=== PATIENT | male | born 1965 | race Caucasian/White ===

== ENCOUNTER 2019-01-10 09:00 | Outpatient (RCR) | payer OTHER, SELFPAY ==
--- NOTE | 2018-12-26 09:51 | PT.OIE ---
Current Diagnoses Lateral epicondylitis, right elbow (12/25/18) Provider Visit Care Team Role Provider Type Tripp Joseph MD Attending Provider Physician Primary Care Provider Specialty: Family Practice Address: [facility] [place], [address] Email: [email or web address] Physical Therapy Initial Evaluation PT-OP-A Visit Information Start: 12/25/18 09:56 Freq: Status: Active Protocol: Document 12/25/18 10:01 [facility] (Rec: 12/25/18 10:20 [facility] [email or web address]) Out-Patient Physical Therapy Visit Information Visit Information Visit Type Initial Evaluation Visit Note 53 year old male referred for medial elbow pain right greater than left. His symptoms began in the left medial side of his elbow in 2015. He underwent a C5-C6 disc replacement surgery which really helped the left elbow symptoms in October of 2016. Then in September of 2017 he began doing eat the frog exercises at the gym. This is when his symptoms began on the right side and they were 3 times worse on the right than the left. Visit Start Time 09:00 Visit Stop Time 09:45 Total Visit Minutes 45 Visit Number 1 Evaluation Information Evaluation Date 12/25/18 PT-OP-B Current Condition Start: 12/25/18 09:56 Freq: Status: Active Protocol: Document 12/25/18 10:01 [facility] (Rec: 12/25/18 10:20 [facility] [email or web address]) Current Condition History of Current Condition Onset Date September 2017 symptoms progressed Current Complaints Right greater than left medial elbow pain rated 3/10 History of Current Condition 53 year old male referred for medial elbow pain right greater than left. His symptoms began in the left medial side of his elbow in 2015. He underwent a C5-C6 disc replacement surgery which really helped the left elbow symptoms in October of 2016. Then in September of 2017 he began doing eat the frog exercises at the gym. This is when his symptoms began to flare on his right medial elbow and he notes they are 3 times worse than the left. He is wearing a medial epicondyle strap when he golfs and this really helps to decrease his pain. Treatment Goals Patient/Caregiver Goals to decrease medial elbow pain bilaterally and to be able to continue with a exercise program without pain. Junior would also like to continue golfing weaning off the brace and without pain Current Functional Impairments (Reported) Functional Limitations- ADL's pain with activities that require twisting at his elbow or rotation with flexion, pain with golfing if not wearing the strap, pain with exercise and weights PT-OP-F Manual Assessment Start: 12/25/18 09:56 Freq: Status: Active Protocol: Document 12/25/18 10:20 [facility] (Rec: 12/25/18 10:26 [facility] [email or web address]) Manual Assessments Soft Tissue Assessment Soft Tissue Mobility Assessment tightness in the medial forearm musculature right greater than left tightness in the flexor carpi ulnaris, flexor carpi radialis , pain at the common flexor tendon on the right and medial epicondyle, tightness of the pectoralis minor and scalenes right greater than left Joint Mobility Assessment Joint Mobility Assessment increased valgus on the right medial elbow as compared to the left, decreased cervical sidebend ROM to the left as compared to the right PT-OP-J Posture/Palpation/Skin Start: 12/25/18 09:56 Freq: Status: Active Protocol: Document 12/25/18 10:20 [facility] (Rec: 12/25/18 10:26 [facility] [email or web address]) Posture Evaluation Position Sitting Shoulder Posture (R) Rounded Palpation Assessment Location Two Palpation Location flexor carpi ulnaris, common flexor tendon Palpation Findings Soft Tissue Tightness Muscle Guarding Tenderness One Palpation Location right medial epicondyle Palpation Findings Tenderness Trigger Point Palpation Details pain to palpation on the bone PT-OP-L Special Tests Start: 12/25/18 09:56 Freq: Status: Active Protocol: Document 12/25/18 10:26 [facility] (Rec: 12/25/18 10:28 [facility] [email or web address]) Special Tests Cervical Spine Special Tests Other- 1 Test Results ULTT 1,2,3 Positive for ulnar and medial nerve rightness right side Comments left side there is a tightness only Elbow Special Tests Medial Epicondylitis Comments positive medial epicondylitis testing Valgus- 25 Degrees Comments pain with increased valgus testing PT-OP-M Strength Start: 12/25/18 09:56 Freq: Status: Active Protocol: Document 12/25/18 10:26 [facility] (Rec: 12/25/18 10:28 [facility] [email or web address]) Elbow/Forearm Strength Elbow and Forearm Manual Muscle Testing Left Flexion (C6) 5 Normal Extension (C7) 5 Normal Pronation 5 Normal Supination 5 Normal Right Flexion (C6) 5 Normal Extension (C7) 5 Normal Pronation 5 Normal Supination 4 Good Comments some pain with resisted supination on the right Wrist Strength Wrist Manual Muscle Testing Left Flexion (C7) 5 Normal Extension (C6) 5 Normal Ulnar Deviation 5 Normal Radial Deviation 5 Normal Right Flexion (C7) 4 Good Extension (C6) 5 Normal Ulnar Deviation 5 Normal Radial Deviation 5 Normal PT-OP-Q Treatments Start: 12/25/18 09:56 Freq: Status: Active Protocol: Document 12/25/18 10:29 [facility] (Rec: 12/25/18 10:34 [facility] [email or web address]) Therapeutic Exercises Supine Exercises 1 Supine Exercise Name foam roll stretch with nerve flossing and chest opening Side bilateral Reps/Minutes 1-2 minutes Other Exercises 2 Other Exercise Name ulnar nerve flossing Reps/Minutes x 10 reps 3 Other Exercise Name seated forearm extension stretch Side bilateral 1 Other Exercise Name seated cervical sidebending stretch Side bilateral Reps/Minutes 2-3 reps holding 30 seconds Self-Care/Home Management Treatment Education Patient Education Joint Protection Posture Other Education avoiding elbow hyperextension during the day and with rowing as the right medial elbow is in valgus PT-OP-T Assessment and Plan Start: 12/25/18 09:56 Freq: Status: Active Protocol: Document 12/25/18 09:45 [facility] (Rec: 12/26/18 09:51 [facility] [email or web address]) Physical Therapy Assessment Rehab Potential Rehabilitation Potential Excellent Evaluation Complexity Number of Personal Factors/Comorbidities 0 Number of Body Systems Impaired 1-2 Clinical Presentation at Evaluation Stable Impairments Impairments Activity Tolerance Pain Posture ROM Soft Tissue Mobility Strength Goals Three Impairment + ULTT 3 for ulnar nerve sensitivity on the right Group Home Goal (LTG) Improved mobility of the lunar nerve without symptoms in the elbow during ULTT 3 LTG Duration 8 weeks Two Impairment Tightness of the common flexor tendon, anterior chest, and neck Short Term Goal (STG) Improve mobility of the flexor ulnaris, anterior pectoralis, and scalenes to decrease tension on the medial epicondyle STG Duration 4 weeks One Impairment medial elbow pain restricting activites rated 3/10 Short Term Goal (STG) Den reports decreased c/o tenderness to palpation over the medial epicondyle on the right STG Duration 3-4 weeks [employer] Goal (LTG) With treatment Lukas is able to resume his exercise activities and golfing without complaints of medial elbow pain LTG Duration 8 weeks Assessment Summary Assessment Lukas presents today with bilateral medial epicondylitis right greater than left. His symptoms became flared in September 2017 after he began doing a work out called [employer] the [employer]rog at [employer]. Although he had symptoms earlier in his left elbow in 2015 these had decreased following his neck surgery in 2017. At this point his right side is much more involved than his left. He is wearing the epicondyitis strap on his right forearm during golf and notes this does really help. He rates his pain as 3/10 but it is limiting his activity level with exercise and ADL that require twisting and gripping. He has pain to palpation over the right Medial epicondyle and is tight and restricted in both the common flexor tendon and flexor carpi ulnaris. He is tighter in the pectoralis and scalene musculature on the right as compared to the left and has a +ULTT for ulnar nerve tightness on the right. He is also presenting with a increased valgus angle of the right elbow. We discussed avoiding hyperextension of the elbow which Lukas feels he may be doing with his rowing exercise. He responded well today with stretches for the forearm, anterior chest, and neck. He was also shown a ice massage for daily reduction of inflammation. Treatment will focus on flexibility exercises for the flexor musculature, posture modifications and joint protection, anterior chest and cervical stretches, manual treatments, and modalities. Physical Therapy Plan Frequency and Duration Frequency of Treatment 2x/Week Duration of Treatment 8 weeks Plan of Care Start Date 12/25/18 Plan of Care End Date 02/19/19 Therapeutic Interventions Therapeutic Interventions Home Exercise Program Manual Therapy Patient/Caregiver Education Self-Care/Home Management Soft Tissue Mobilization Therapeutic Exercises
--- NOTE | 2018-12-26 09:52 | PT.OPPOC ---
Current Diagnoses Lateral epicondylitis, right elbow (12/25/18) Provider Visit Care Team Role Provider Type Tripp Joseph MD Attending Provider Physician Primary Care Provider Specialty: Family Practice Address: [place], [address] Email: [email or web address] Plan Of Care PT-OP-T Assessment and Plan Start: 12/25/18 09:56 Freq: Status: Active Protocol: Document 12/25/18 09:45 [facility] (Rec: 12/26/18 09:51 [facility] [email or web address]) Physical Therapy Assessment Rehab Potential Rehabilitation Potential Excellent Evaluation Complexity Number of Personal Factors/Comorbidities 0 Number of Body Systems Impaired 1-2 Clinical Presentation at Evaluation Stable Impairments Impairments Activity Tolerance Pain Posture ROM Soft Tissue Mobility Strength Goals Three Impairment + ULTT 3 for ulnar nerve sensitivity on the right [place] Goal (LTG) Improved mobility of the lunar nerve without symptoms in the elbow during ULTT 3 LTG Duration 8 weeks Two Impairment Tightness of the common flexor tendon, anterior chest, and neck Short Term Goal (STG) Improve mobility of the flexor ulnaris, anterior pectoralis, and scalenes to decrease tension on the medial epicondyle STG Duration 4 weeks One Impairment medial elbow pain restricting activites rated 3/10 Short Term Goal (STG) Den reports decreased c/o tenderness to palpation over the medial epicondyle on the right STG Duration 3-4 weeks [place] Goal (LTG) With treatment Lukas is able to resume his exercise activities and golfing without complaints of medial elbow pain LTG Duration 8 weeks Assessment Summary Assessment Lukas presents today with bilateral medial epicondylitis right greater than left. His symptoms became flared in September 2017 after he began doing a work out called Eat the Frog at [employer]. Although he had symptoms earlier in his left elbow in 2016 these had decreased following his neck surgery in 2017. At this point his right side is much more involved than his left. He is wearing the epicondyitis strap on his right forearm during golf and notes this does really help. He rates his pain as 3/10 but it is limiting his activity level with exercise and ADL that require twisting and gripping. He has pain to palpation over the right Medial epicondyle and is tight and restricted in both the common flexor tendon and flesor carpi ulnaris. He is tighter in the pectoralis and scalene musculature on the right as compared to the left and has a +ULTT for ulnar nerve tightness on the right. He is also presenting with a increased valgus angle of the right elbow. We discussed avoiding hyperextension of the elbow which Lukas feels he may be doing with his rowing exercise. He responded well today with stretches for the forearm, anterior chest, and neck. He was also shown a ice massage for daily reduction of inflammation. Treatment will focus on flexibility exercises for the flexor musculature, posture modifications and joint protection, anterior chest and cervical stretches, manual treatments, and modalities. Physical Therapy Plan Frequency and Duration Frequency of Treatment 2x/Week Duration of Treatment 8 weeks Plan of Care Start Date 12/25/18 Plan of Care End Date 02/19/19 Therapeutic Interventions Therapeutic Interventions Home Exercise Program Manual Therapy Patient/Caregiver Education Self-Care/Home Management Soft Tissue Mobilization Therapeutic Exercises Plan of Care Dates Plan of Care Start Date 12/25/18 Plan of Care End Date 02/19/19 Please Sign and Return: I have reviewed this Plan of Care and certify that the skilled therapy services above are required to meet the patient?s needs. Physician Signature Date Printed Name and Credentials Clinical Instructor Signature Printed Name and Credentials
--- NOTE | 2018-12-27 12:47 | PT.OTN ---
Current Diagnoses Lateral epicondylitis, right elbow (12/27/18) Physical Therapy Treatment Note PT-OP-A Visit Information Start: 12/25/18 09:56 Freq: Status: Active Protocol: Document 12/27/18 12:08 [facility] (Rec: 12/27/18 12:47 [facility] [email or web address]) Out-Patient Physical Therapy Visit Information Visit Information Visit Type Treatment Note Visit Start Time 09:00 Visit Stop Time 09:45 Total Visit Minutes 45 Visit Number 2 PT-OP-B Current Condition Start: 12/25/18 09:56 Freq: Status: Active Protocol: Document 12/25/18 10:01 [facility] (Rec: 12/25/18 10:20 [facility] [email or web address]) Current Condition History of Current Condition Onset Date September 2017 symptoms progressed Current Complaints Right greater than left medial elbow pain rated 3/10 History of Current Condition 53 year old male referred for medial elbow pain right greater than left. His symptoms began in the left medial side of his elbow in 2015. He underwent a C5-C6 disc replacement surgery which really helped the left elbow symptoms in October of 2016. Then in September of 2017 he began doing eat the frog exercises at the gym. This is when his symptoms began to flare on his right medial elbow and he notes they are 3 times worse than the left. He is wearing a medial epicondyle strap when he golfs and this really helps to decrease his pain. Treatment Goals Patient/Caregiver Goals to decrease medial elbow pain bilaterally and to be able to continue with a exercise program without pain. Junior would also like to continue golfing weaning off the brace and without pain Current Functional Impairments (Reported) Functional Limitations- ADL's pain with activities that require twisting at his elbow or rotation with flexion, pain with golfing if not wearing the strap, pain with exercise and weights PT-OP-C Subjective Start: 12/25/18 09:56 Freq: Status: Active Protocol: Document 12/27/18 12:08 [facility] (Rec: 12/27/18 12:47 [facility] [email or web address]) OP-PT Subjective Patient Comments Patient Comments Lukas reports he was able to row wearing his brace without any pain. He has been working on his stretches PT-OP-F Manual Assessment Start: 12/25/18 09:56 Freq: Status: Active Protocol: Document 12/25/18 10:20 [facility] (Rec: 12/25/18 10:26 [facility] [email or web address]) Manual Assessments Soft Tissue Assessment Soft Tissue Mobility Assessment tightness in the medial forarm musculature right greater than left tightness in the flexor carpi ulnaris, flexor carpi radialis , pain at the common flexor tendon on the right and medial epicondyle, tightness of the pectoralis minor and scalenes right greater than left Joint Mobility Assessment Joint Mobility Assessment increased valgus on the right medial elbow as compared to the left, decreased cervical sidebend ROM to the left as compared to the right PT-OP-J Posture/Palpation/Skin Start: 12/25/18 09:56 Freq: Status: Active Protocol: Document 12/25/18 10:20 [facility] (Rec: 12/25/18 10:26 [facility] [email or web address]) Posture Evaluation Position Sitting Shoulder Posture (R) Rounded Palpation Assessment Location Two Palpation Location flexor carpi ulnaris, common flexor tendon Palpation Findings Soft Tissue Tightness Muscle Guarding Tenderness One Palpation Location right medial epicondyle Palpation Findings Tenderness Trigger Point Palpation Details pain to palpation on the bone PT-OP-L Special Tests Start: 12/25/18 09:56 Freq: Status: Active Protocol: Document 12/25/18 10:26 [facility] (Rec: 12/25/18 10:28 [facility] [email or web address]) Special Tests Cervical Spine Special Tests Other- 1 Test Results ULTT 1,2,3 Positive for ulnar and medial nerve rightness right side Comments left side there is a tightness only Elbow Special Tests Medial Epicondylitis Comments positive medial epicondylitis testing Valgus- 25 Degrees Comments pain with increased valgus testing PT-OP-M Strength Start: 12/25/18 09:56 Freq: Status: Active Protocol: Document 12/25/18 10:26 [facility] (Rec: 12/25/18 10:28 [facility] [email or web address]) Elbow/Forearm Strength Elbow and Forearm Manual Muscle Testing Left Flexion (C6) 5 Normal Extension (C7) 5 Normal Pronation 5 Normal Supination 5 Normal Right Flexion (C6) 5 Normal Extension (C7) 5 Normal Pronation 5 Normal Supination 4 Good Comments some pain with resisted supination on the right Wrist Strength Wrist Manual Muscle Testing Left Flexion (C7) 5 Normal Extension (C6) 5 Normal Ulnar Deviation 5 Normal Radial Deviation 5 Normal Right Flexion (C7) 4 Good Extension (C6) 5 Normal Ulnar Deviation 5 Normal Radial Deviation 5 Normal PT-OP-Q Treatments Start: 12/25/18 09:56 Freq: Status: Active Protocol: Document 12/27/18 12:08 [facility] (Rec: 12/27/18 12:47 [facility] [email or web address]) Manual Therapy Treatment Soft Tissue Mobilization 1 Body Location STM and MFR of the R forearm flexors Manual Techniques 3 Type manual stretch of the pec minor and forearm flexors 2 Type manual cervical sidebend stretch for the scalenes and upper trap 1 Type ULTT nerve glides for median and ulnar nerve PT-OP-R Modalities Start: 12/25/18 09:56 Freq: Status: Active Protocol: Document 12/27/18 12:08 [facility] (Rec: 12/27/18 12:47 [facility] [email or web address]) Hot Pack/Cold Pack Treatment Ice Massage Location right common flexor tendon medial epicondyle Ultrasound Therapy Treatment Right Medial Forearm Treatment Duration (minutes) 8 Patient Position Supine Coupling Medium Ultrasound Gel Applicator Size (cm2) 5 Frequency Setting (mHz) 1 Mode Setting Continuous Duty Cycle 100% Intensity Setting (w/cm2) 1.0 PT-OP-T Assessment and Plan Start: 12/25/18 09:56 Freq: Status: Active Protocol: Document 12/27/18 12:08 [facility] (Rec: 12/27/18 12:47 [facility] [email or web address]) Physical Therapy Assessment Assessment Summary Assessment Decreased tenderness over the medial epicondyle today with palpation. Good tolerance for exercises Physical Therapy Plan Frequency and Duration Frequency of Treatment 2x/Week Duration of Treatment 8 weeks Plan of Care Start Date 12/25/18 Plan of Care End Date 02/19/19 Next Visit Focus/Plan Next Note Type Treatment Note Next Visit Plan begin with foam roll stretch to warm up next visit
--- NOTE | 2019-01-07 14:40 | PT.OTN ---
Current Diagnoses Lateral epicondylitis, right elbow (01/07/19) Physical Therapy Treatment Note PT-OP-A Visit Information Start: 12/25/18 09:56 Freq: Status: Active Protocol: Document 01/01/19 11:15 [facility] (Rec: 01/07/19 14:40 [facility] [email or web address]) Out-Patient Physical Therapy Visit Information Visit Information Visit Type Treatment Note Visit Start Time 11:15 Visit Stop Time 12:30 Total Visit Minutes 45 Visit Number 3 PT-OP-B Current Condition Start: 12/25/18 09:56 Freq: Status: Active Protocol: Document 12/25/18 10:01 [facility] (Rec: 12/25/18 10:20 [facility] [email or web address]) Current Condition History of Current Condition Onset Date September 2017 symptoms progressed Current Complaints Right greater than left medial elbow pain rated 3/10 History of Current Condition 53 year old male referred for medial elbow pain right greater than left. His symptoms began in the left medial side of his elbow in 2015. He underwent a C5-C6 disc replacement surgery which really helped the left elbow symptoms in October of 2016. Then in September of 2017 he began doing eat the frog exercises at the gym. This is when his symptoms began to flare on his right medial elbow and he notes they are 3 times worse than the left. He is wearing a medial epicondyle strap when he golfs and this really helps to decrease his pain. Treatment Goals Patient/Caregiver Goals to decrease medial elbow pain bilaterally and to be able to continue with a exercise program without pain. Junior would also like to continue golfing weaning off the brace and without pain Current Functional Impairments (Reported) Functional Limitations- ADL's pain with activities that require twisting at his elbow or rotation with flexion, pain with golfing if not wearing the strap, pain with exercise and weights PT-OP-C Subjective Start: 12/25/18 09:56 Freq: Status: Active Protocol: Document 01/01/19 11:15 [facility] (Rec: 01/07/19 14:39 [facility] [email or web address]) OP-PT Subjective Patient Comments Patient Comments Doing better and has been working on his stretches at home PT-OP-F Manual Assessment Start: 12/25/18 09:56 Freq: Status: Active Protocol: Document 12/25/18 10:20 [facility] (Rec: 12/25/18 10:26 [facility] [email or web address]) Manual Assessments Soft Tissue Assessment Soft Tissue Mobility Assessment tightness in the medial forarm musculature right greater than left tightness in the flexor carpi ulnaris, flexor carpi radialis , pain at the common flexor tendon on the right and medial epicondyle, tightness of the pectoralis minor and scalenes right greater than left Joint Mobility Assessment Joint Mobility Assessment increased valgus on the right medial elbow as compared to the left, decreased cervical sidebend ROM to the left as compared to the right PT-OP-J Posture/Palpation/Skin Start: 12/25/18 09:56 Freq: Status: Active Protocol: Document 12/25/18 10:20 [facility] (Rec: 12/25/18 10:26 [facility] [email or web address]) Posture Evaluation Position Sitting Shoulder Posture (R) Rounded Palpation Assessment Location Two Palpation Location flexor carpi ulnaris, common flexor tendon Palpation Findings Soft Tissue Tightness Muscle Guarding Tenderness One Palpation Location right medial epicondyle Palpation Findings Tenderness Trigger Point Palpation Details pain to palpation on the bone PT-OP-L Special Tests Start: 12/25/18 09:56 Freq: Status: Active Protocol: Document 12/25/18 10:26 [facility] (Rec: 12/25/18 10:28 [facility] [email or web address]) Special Tests Cervical Spine Special Tests Other- 1 Test Results ULTT 1,2,3 Positive for ulnar and medial nerve rightness right side Comments left side there is a tightness only Elbow Special Tests Medial Epicondylitis Comments positive medial epicondylitis testing Valgus- 25 Degrees Comments pain with increased valgus testing PT-OP-M Strength Start: 12/25/18 09:56 Freq: Status: Active Protocol: Document 12/25/18 10:26 [facility] (Rec: 12/25/18 10:28 [facility] [email or web address]) Elbow/Forearm Strength Elbow and Forearm Manual Muscle Testing Left Flexion (C6) 5 Normal Extension (C7) 5 Normal Pronation 5 Normal Supination 5 Normal Right Flexion (C6) 5 Normal Extension (C7) 5 Normal Pronation 5 Normal Supination 4 Good Comments some pain with resisted supination on the right Wrist Strength Wrist Manual Muscle Testing Left Flexion (C7) 5 Normal Extension (C6) 5 Normal Ulnar Deviation 5 Normal Radial Deviation 5 Normal Right Flexion (C7) 4 Good Extension (C6) 5 Normal Ulnar Deviation 5 Normal Radial Deviation 5 Normal PT-OP-Q Treatments Start: 12/25/18 09:56 Freq: Status: Active Protocol: Document 01/01/19 11:15 [facility] (Rec: 01/07/19 14:39 [facility] [email or web address]) Manual Therapy Treatment Soft Tissue Mobilization 1 Body Location STM and MFR of the R forearm flexors Manual Techniques 3 Type manual stretch of the pec minor and forearm flexors 2 Type manual cervical sidebend stretch for the scalenes and upper trap 1 Type ULTT nerve glides for median and ulnar nerve PT-OP-R Modalities Start: 12/25/18 09:56 Freq: Status: Active Protocol: Document 01/01/19 11:15 [facility] (Rec: 01/07/19 14:40 [facility] [email or web address]) Hot Pack/Cold Pack Treatment Ice Massage Location right common flexor tendon medial epicondyle Ultrasound Therapy Treatment Right Medial Forearm Treatment Duration (minutes) 8 Patient Position Supine Coupling Medium Ultrasound Gel Applicator Size (cm2) 5 Frequency Setting (mHz) 1 Mode Setting Continuous Duty Cycle 100% Intensity Setting (w/cm2) 1.0 PT-OP-T Assessment and Plan Start: 12/25/18 09:56 Freq: Status: Active Protocol: Document 01/01/19 11:15 [facility] (Rec: 01/07/19 14:39 [facility] [email or web address]) Physical Therapy Assessment Assessment Summary Assessment Still tigght in the right greater than left side of his neck, decreasing tenderness over the medial epicondyle Physical Therapy Plan Frequency and Duration Frequency of Treatment 2x/Week Duration of Treatment 8 weeks Plan of Care Start Date 12/25/18 Plan of Care End Date 02/19/19 Therapeutic Interventions Therapeutic Interventions Home Exercise Program Manual Therapy Patient/Caregiver Education Self-Care/Home Management Soft Tissue Mobilization Therapeutic Exercises Next Visit Focus/Plan Next Note Type Treatment Note Next Visit Plan continue to work on improving flexibility of the forearm, anterior chest, and neck
--- NOTE | 2019-01-07 14:44 | PT.OTN ---
Current Diagnoses Lateral epicondylitis, right elbow (01/07/19) Physical Therapy Treatment Note PT-OP-A Visit Information Start: 12/25/18 09:56 Freq: Status: Active Protocol: Document 01/07/19 14:40 [facility] (Rec: 01/07/19 14:44 [facility] [email or web address]) Out-Patient Physical Therapy Visit Information Visit Information Visit Type Treatment Note Visit Start Time 09:00 Visit Stop Time 09:45 Total Visit Minutes 45 Visit Number 4 PT-OP-B Current Condition Start: 12/25/18 09:56 Freq: Status: Active Protocol: Document 12/25/18 10:01 [facility] (Rec: 12/25/18 10:20 [facility] [email or web address]) Current Condition History of Current Condition Onset Date September 2017 symptoms progressed Current Complaints Right greater than left medial elbow pain rated 3/10 History of Current Condition 53 year old male referred for medial elbow pain right greater than left. His symptoms began in the left medial side of his elbow in 2015. He underwent a C5-C6 disc replacement surgery which really helped the left elbow symptoms in October of 2016. Then in September of 2017 he began doing eat the frog exercises at the gym. This is when his symptoms began to flare on his right medial elbow and he notes they are 3 times worse than the left. He is wearing a medial epicondyle strap when he golfs and this really helps to decrease his pain. Treatment Goals Patient/Caregiver Goals to decrease medial elbow pain bilaterally and to be able to continue with a exercise program without pain. Junior would also like to continue golfing weaning off the brace and without pain Current Functional Impairments (Reported) Functional Limitations- ADL's pain with activities that require twisting at his elbow or rotation with flexion, pain with golfing if not wearing the strap, pain with exercise and weights PT-OP-C Subjective Start: 12/25/18 09:56 Freq: Status: Active Protocol: Document 01/07/19 14:40 [facility] (Rec: 01/07/19 14:44 [facility] [email or web address]) OP-PT Subjective Patient Comments Patient Comments Lukas reports that symptoms are better and there is decreased tenderness over the medial elbow now PT-OP-F Manual Assessment Start: 12/25/18 09:56 Freq: Status: Active Protocol: Document 12/25/18 10:20 [facility] (Rec: 12/25/18 10:26 [facility] [email or web address]) Manual Assessments Soft Tissue Assessment Soft Tissue Mobility Assessment tightness in the medial forarm musculature right greater than left tightness in the flexor carpi ulnaris, flexor carpi radialis , pain at the common flexor tendon on the right and medial epicondyle, tightness of the pectoralis minor and scalenes right greater than left Joint Mobility Assessment Joint Mobility Assessment increased valgus on the right medial elbow as compared to the left, decreased cervical sidebend ROM to the left as compared to the right PT-OP-J Posture/Palpation/Skin Start: 12/25/18 09:56 Freq: Status: Active Protocol: Document 12/25/18 10:20 [facility] (Rec: 12/25/18 10:26 [facility] [email or web address]) Posture Evaluation Position Sitting Shoulder Posture (R) Rounded Palpation Assessment Location Two Palpation Location flexor carpi ulnaris, common flexor tendon Palpation Findings Soft Tissue Tightness Muscle Guarding Tenderness One Palpation Location right medial epicondyle Palpation Findings Tenderness Trigger Point Palpation Details pain to palpation on the bone PT-OP-L Special Tests Start: 12/25/18 09:56 Freq: Status: Active Protocol: Document 12/25/18 10:26 [facility] (Rec: 12/25/18 10:28 [facility] [email or web address]) Special Tests Cervical Spine Special Tests Other- 1 Test Results ULTT 1,2,3 Positive for ulnar and medial nerve rightness right side Comments left side there is a tightness only Elbow Special Tests Medial Epicondylitis Comments positive medial epicondylitis testing Valgus- 25 Degrees Comments pain with increased valgus testing PT-OP-M Strength Start: 12/25/18 09:56 Freq: Status: Active Protocol: Document 12/25/18 10:26 [facility] (Rec: 12/25/18 10:28 [facility] [email or web address]) Elbow/Forearm Strength Elbow and Forearm Manual Muscle Testing Left Flexion (C6) 5 Normal Extension (C7) 5 Normal Pronation 5 Normal Supination 5 Normal Right Flexion (C6) 5 Normal Extension (C7) 5 Normal Pronation 5 Normal Supination 4 Good Comments some pain with resisted supination on the right Wrist Strength Wrist Manual Muscle Testing Left Flexion (C7) 5 Normal Extension (C6) 5 Normal Ulnar Deviation 5 Normal Radial Deviation 5 Normal Right Flexion (C7) 4 Good Extension (C6) 5 Normal Ulnar Deviation 5 Normal Radial Deviation 5 Normal PT-OP-Q Treatments Start: 12/25/18 09:56 Freq: Status: Active Protocol: Document 01/07/19 14:40 [facility] (Rec: 01/07/19 14:44 [facility] [email or web address]) Therapeutic Exercises Supine Exercises 1 Supine Exercise Name foam roll stretch with nerve flossing and chest opening Side bilateral Reps/Minutes 1-2 minutes Manual Therapy Treatment Soft Tissue Mobilization 1 Body Location STM and MFR of the R forearm flexors Manual Techniques 3 Type manual stretch of the pec minor and forearm flexors 2 Type manual cervical sidebend stretch for the scalenes and upper trap 1 Type ULTT nerve glides for median and ulnar nerve PT-OP-R Modalities Start: 12/25/18 09:56 Freq: Status: Active Protocol: Document 01/07/19 09:00 [facility] (Rec: 01/07/19 14:44 [facility] [email or web address]) Hot Pack/Cold Pack Treatment Ice Massage Location right common flexor tendon medial epicondyle Ultrasound Therapy Treatment Right Medial Forearm Treatment Duration (minutes) 8 Patient Position Supine Coupling Medium Ultrasound Gel Applicator Size (cm2) 5 Frequency Setting (mHz) 1 Mode Setting Continuous Duty Cycle 100% Intensity Setting (w/cm2) 1.0 PT-OP-T Assessment and Plan Start: 12/25/18 09:56 Freq: Status: Active Protocol: Document 01/07/19 14:40 [facility] (Rec: 01/07/19 14:44 [facility] [email or web address]) Physical Therapy Assessment Assessment Summary Assessment no tenderness to palpation over themedial epicondyle today, still tight in the right side of the neck as compared to the left. Physical Therapy Plan Frequency and Duration Frequency of Treatment 2x/Week Duration of Treatment 8 weeks Plan of Care Start Date 12/25/18 Plan of Care End Date 02/19/19 Next Visit Focus/Plan Next Note Type Treatment Note Next Visit Plan continue to work on improving flexibility of the forearm, anterior chest, and neck
--- NOTE | 2019-01-10 10:04 | PT.OTN ---
Current Diagnoses Lateral epicondylitis, right elbow (01/10/19) Physical Therapy Treatment Note PT-OP-A Visit Information Start: 12/25/18 09:56 Freq: Status: Active Protocol: Document 01/10/19 10:00 [facility] (Rec: 01/10/19 10:04 [facility] [email or web address]) Out-Patient Physical Therapy Visit Information Visit Information Visit Type Treatment Note Visit Start Time 09:00 Visit Stop Time 09:45 Total Visit Minutes 45 Visit Number 5 PT-OP-B Current Condition Start: 12/25/18 09:56 Freq: Status: Active Protocol: Document 12/25/18 10:01 [facility] (Rec: 12/25/18 10:20 [facility] [email or web address]) Current Condition History of Current Condition Onset Date September 2017 symptoms progressed Current Complaints Right greater than left medial elbow pain rated 3/10 History of Current Condition 53 year old male referred for medial elbow pain right greater than left. His symptoms began in the left medial side of his elbow in 2015. He underwent a C5-C6 disc replacement surgery which really helped the left elbow symptoms in October of 2016. Then in September of 2017 he began doing eat the frog exercises at the gym. This is when his symptoms began to flare on his right medial elbow and he notes they are 3 times worse than the left. He is wearing a medial epicondyle strap when he golfs and this really helps to decrease his pain. Treatment Goals Patient/Caregiver Goals to decrease medial elbow pain bilaterally and to be able to continue with a exercise program without pain. Junior would also like to continue golfing weaning off the brace and without pain Current Functional Impairments (Reported) Functional Limitations- ADL's pain with activities that require twisting at his elbow or rotation with flexion, pain with golfing if not wearing the strap, pain with exercise and weights PT-OP-C Subjective Start: 12/25/18 09:56 Freq: Status: Active Protocol: Document 01/10/19 10:00 [facility] (Rec: 01/10/19 10:04 [facility] [email or web address]) OP-PT Subjective Patient Comments Patient Comments Sore today at the medial elbow PT-OP-F Manual Assessment Start: 12/25/18 09:56 Freq: Status: Active Protocol: Document 12/25/18 10:20 [facility] (Rec: 12/25/18 10:26 [facility] [email or web address]) Manual Assessments Soft Tissue Assessment Soft Tissue Mobility Assessment tightness in the medial forarm musculature right greater than left tightness in the flexor carpi ulnaris, flexor carpi radialis , pain at the common flexor tendon on the right and medial epicondyle, tightness of the pectoralis minor and scalenes right greater than left Joint Mobility Assessment Joint Mobility Assessment increased valgus on the right medial elbow as compared to the left, decreased cervical sidebend ROM to the left as compared to the right PT-OP-J Posture/Palpation/Skin Start: 12/25/18 09:56 Freq: Status: Active Protocol: Document 12/25/18 10:20 [facility] (Rec: 12/25/18 10:26 [facility] [email or web address]) Posture Evaluation Position Sitting Shoulder Posture (R) Rounded Palpation Assessment Location Two Palpation Location flexor carpi ulnaris, common flexor tendon Palpation Findings Soft Tissue Tightness Muscle Guarding Tenderness One Palpation Location right medial epicondyle Palpation Findings Tenderness Trigger Point Palpation Details pain to palpation on the bone PT-OP-L Special Tests Start: 12/25/18 09:56 Freq: Status: Active Protocol: Document 12/25/18 10:26 [facility] (Rec: 12/25/18 10:28 [facility] [email or web address]) Special Tests Cervical Spine Special Tests Other- 1 Test Results ULTT 1,2,3 Positive for ulnar and medial nerve rightness right side Comments left side there is a tightness only Elbow Special Tests Medial Epicondylitis Comments positive medial epicondylitis testing Valgus- 25 Degrees Comments pain with increased valgus testing PT-OP-M Strength Start: 12/25/18 09:56 Freq: Status: Active Protocol: Document 12/25/18 10:26 [facility] (Rec: 12/25/18 10:28 [facility] [email or web address]) Elbow/Forearm Strength Elbow and Forearm Manual Muscle Testing Left Flexion (C6) 5 Normal Extension (C7) 5 Normal Pronation 5 Normal Supination 5 Normal Right Flexion (C6) 5 Normal Extension (C7) 5 Normal Pronation 5 Normal Supination 4 Good Comments some pain with resisted supination on the right Wrist Strength Wrist Manual Muscle Testing Left Flexion (C7) 5 Normal Extension (C6) 5 Normal Ulnar Deviation 5 Normal Radial Deviation 5 Normal Right Flexion (C7) 4 Good Extension (C6) 5 Normal Ulnar Deviation 5 Normal Radial Deviation 5 Normal PT-OP-Q Treatments Start: 12/25/18 09:56 Freq: Status: Active Protocol: Document 01/10/19 10:00 [facility] (Rec: 01/10/19 10:04 [facility] [email or web address]) Therapeutic Exercises Supine Exercises 1 Supine Exercise Name foam roll stretch with nerve flossing and chest opening Side bilateral Reps/Minutes 1-2 minutes Other Exercises 5 Other Exercise Name standing neck stretch 4 Other Exercise Name standing brachial plexus stretch with hand on the wall Comments bilateral starting with elbow bent and working towards straight elbow Manual Therapy Treatment Soft Tissue Mobilization 1 Body Location STM and MFR of the R forearm flexors Manual Techniques 3 Type manual stretch of the pec minor and forearm flexors 2 Type manual cervical sidebend stretch for the scalenes and upper trap 1 Type ULTT nerve glides for median and ulnar nerve PT-OP-R Modalities Start: 12/25/18 09:56 Freq: Status: Active Protocol: Document 01/10/19 10:04 [facility] (Rec: 01/10/19 10:04 [facility] [email or web address]) Hot Pack/Cold Pack Treatment Ice Massage Location right common flexor tendon medial epicondyle Ultrasound Therapy Treatment Right Medial Forearm Treatment Duration (minutes) 8 Patient Position Supine Coupling Medium Ultrasound Gel Applicator Size (cm2) 5 Frequency Setting (mHz) 1 Mode Setting Continuous Duty Cycle 100% Intensity Setting (w/cm2) 1.0 PT-OP-T Assessment and Plan Start: 12/25/18 09:56 Freq: Status: Active Protocol: Document 01/10/19 10:00 [facility] (Rec: 01/10/19 10:04 [facility] [email or web address]) Physical Therapy Assessment Assessment Summary Assessment tender today over the medial epicondyle and a little tighter with the nerve flossing exercises Physical Therapy Plan Frequency and Duration Frequency of Treatment 2x/Week Duration of Treatment 8 weeks Plan of Care Start Date 12/25/18 Plan of Care End Date 02/19/19 Therapeutic Interventions Therapeutic Interventions Home Exercise Program Manual Therapy Patient/Caregiver Education Self-Care/Home Management Soft Tissue Mobilization Therapeutic Exercises Next Visit Focus/Plan Next Note Type Treatment Note Next Visit Plan continue to work on improving flexibility of the forearm, anterior chest, and neck
--- NOTE | 2019-08-08 14:56 | PT.OPDS ---
Current Diagnoses Lateral epicondylitis, right elbow (01/10/19) Visit Care Team Role Provider Type Tripp Joseph MD Attending Provider Physician Primary Care Provider Specialty: [facility] Address: [address] [place] [address], [facility], [place], [place], [facility] Email: [email or web address] Visit Number Visit Number 5 Discharge Summary PT-OP-B Current Condition Start: 12/25/18 09:56 Freq: Status: Active Protocol: Document 12/25/18 10:01 [facility] (Rec: 12/25/18 10:20 [facility] [email or web address]) Current Condition History of Current Condition Onset Date September 2017 symptoms progressed Current Complaints Right greater than left medial elbow pain rated 3/10 History of Current Condition 53 year old male referred for medial elbow pain right greater than left. His symptoms began in the left medial side of his elbow in 2015. He underwent a C5-C6 disc replacement surgery which really helped the left elbow symptoms in October of 2016. Then in September of 2017 he began doing eat the frog exercises at the gym. This is when his symptoms began to flare on his right medial elbow and he notes they are 3 times worse than the left. He is wearing a medial epicondyle strap when he golfs and this really helps to decrease his pain. Treatment Goals Patient/Caregiver Goals to decrease medial elbow pain bilaterally and to be able to continue with a exercise program without pain. Junior would also like to continue golfing weaning off the brace and without pain Current Functional Impairments (Reported) Functional Limitations- ADL's pain with activities that require twisting at his elbow or rotation with flexion, pain with golfing if not wearing the strap, pain with exercise and weights PT-OP-C Subjective Start: 12/25/18 09:56 Freq: Status: Active Protocol: Document 01/10/19 10:00 [facility] (Rec: 01/10/19 10:04 [facility] [email or web address]) OP-PT Subjective Patient Comments Patient Comments Sore today at the medial elbow PT-OP-F Manual Assessment Start: 12/25/18 09:56 Freq: Status: Active Protocol: Document 12/25/18 10:20 [facility] (Rec: 12/25/18 10:26 [facility] [email or web address]) Manual Assessments Soft Tissue Assessment Soft Tissue Mobility Assessment tightness in the medial forarm musculature right greater than left tightness in the flexor carpi ulnaris, flexor carpi radialis , pain at the common flexor tendon on the right and medial epicondyle, tightness of the pectoralis minor and scalenes right greater than left Joint Mobility Assessment Joint Mobility Assessment increased valgus on the right medial elbow as compared to the left, decreased cervical sidebend ROM to the left as compared to the right PT-OP-J Posture/Palpation/Skin Start: 12/25/18 09:56 Freq: Status: Active Protocol: Document 12/25/18 10:20 [facility] (Rec: 12/25/18 10:26 [facility] [email or web address]) Posture Evaluation Position Sitting Shoulder Posture (R) Rounded Palpation Assessment Location Two Palpation Location flexor carpi ulnaris, common flexor tendon Palpation Findings Soft Tissue Tightness,Muscle Guarding,Tenderness One Palpation Location right medial epicondyle Palpation Findings Tenderness,Trigger Point Palpation Details pain to palpation on the bone PT-OP-L Special Tests Start: 12/25/18 09:56 Freq: Status: Active Protocol: Document 12/25/18 10:26 [facility] (Rec: 12/25/18 10:28 [facility] [email or web address]) Special Tests Cervical Spine Special Tests Other- 1 Test Results ULTT 1,2,3 Positive for ulnar and medial nerve rightness right side Comments left side there is a tightness only Elbow Special Tests Medial Epicondylitis Comments positive medial epicondylitis testing Valgus- 25 Degrees Comments pain with increased valgus testing PT-OP-M Strength Start: 12/25/18 09:56 Freq: Status: Active Protocol: Document 12/25/18 10:26 [facility] (Rec: 12/25/18 10:28 [facility] [email or web address]) Elbow/Forearm Strength Elbow and Forearm Manual Muscle Testing Left Flexion (C6) 5 Normal Extension (C7) 5 Normal Pronation 5 Normal Supination 5 Normal Right Flexion (C6) 5 Normal Extension (C7) 5 Normal Pronation 5 Normal Supination 4 Good Comments some pain with resisted supination on the right Wrist Strength Wrist Manual Muscle Testing Left Flexion (C7) 5 Normal Extension (C6) 5 Normal Ulnar Deviation 5 Normal Radial Deviation 5 Normal Right Flexion (C7) 4 Good Extension (C6) 5 Normal Ulnar Deviation 5 Normal Radial Deviation 5 Normal PT-OP-T Assessment and Plan Start: 12/25/18 09:56 Freq: Status: Active Protocol: Document 08/08/19 14:55 [facility] (Rec: 08/08/19 14:56 [facility] [id number]) Physical Therapy Plan Discharge Physical Therapy Discharge Reasons No Longer Attending PT Discharge Comments Pt has not been seen since January 10 and will be discharged at this time
== END 2019-01-11 12:28 ==
LOC: PHYS 09:00
PROVIDERS: PCP Family Medicine; Visit Provider Family Medicine
DX: M77.11 Lateral epicondylitis, right elbow (principal)
CPT/HCPCS: 97035; 97110; 97140; 97161

== ENCOUNTER → 2020-06-09 13:58 | Outpatient (CLI) | payer OTHER, SELFPAY ==
--- NOTE | 2020-06-09 14:06 | DI.RAD.S_ITS ---
PROCEDURE: XR CERVICAL SPINE 4V OR 5V INDICATIONS: Neck pain with Rt radiculopathy TECHNIQUE: 5 views of the cervical spine were acquired. COMPARISON: None. FINDINGS: Bones: No fractures or dislocations to the T1 level. No suspicious bony lesions. There is normal range of motion between flexion and extension, with preserved normal bony alignment. C6-7 intervertebral disc prosthesis is present. During flexion and extension imaging no abnormal subluxation is seen. Soft tissues: Prevertebral soft tissues are normal in thickness. IMPRESSION: No evidence of abnormal subluxation in this patient with prior disc prosthesis placement at the C6-7 level. Dictated by: Elio Umñaa M.D. on 06/09/2020 at 15:41 Approved by: Elio Umaña M.D. on 06/09/2020 at 15:42
== END ==
PROVIDERS: PCP Family Medicine; Referring Provider Family Medicine; Visit Provider Family Medicine
DX: M54.12 Radiculopathy, cervical region (principal); M54.2 Cervicalgia; R20.2 Paresthesia of skin
CPT/HCPCS: 72050

== ENCOUNTER → 2021-02-15 08:05 | Outpatient (CLI) | payer OTHER, SELFPAY ==
[2021-02-15 10:49] LABS: Add Manual Diff / Slide Review NO; Basophils Absolute Auto 0 /uL (0-100); Basophils Percent Auto 0.9 % (0-2); Eosinophils Absolute Auto 100 /uL (0-450); Eosinophils Percent Auto 2.5 % (2-4); Hematocrit 45.2 % (41-53); Hemoglobin 15.2 g/dL (13.5-17.5); Lymphocytes Absolute Auto 1300 /uL (1100-4500); Lymphocytes Percent Auto 23.7 % (25-40); Mean Corpuscular HGB Conc 33.6 % (30-36); Mean Corpuscular Hemoglobin 30.4 PG (26-34); Mean Corpuscular Volume 90.3 fL (80-100); Monocytes Absolute Auto 400 /uL (0-900); Monocytes Percent Auto 7.5 % (3-14); Neutrophils Absolute Auto 3500 /uL (1500-7000); Neutrophils Percent Auto 65.4 % (50-75); Platelet Count 139 X10^3/uL (150-400); Red Blood Cell Count 5.01 X10^6/uL (4.5-5.9); Red Cell Distribution Width 13.1 % (11.6-14.8); White Blood Cell Count 5.4 X10^3/uL (4.5-11.0)
[2021-02-15 11:09] LABS: Alanine Aminotransferase 46 IU/L (<50); Albumin 4.6 g/dL (3.5-5.0); Albumin Globulin Ratio 1.6 (1.0-2.8); Alkaline Phosphatase 44 U/L (38-126); Aspartate Aminotransferase 43 IU/L (17-59); BUN Creatinine Ratio 20.9 (6-22); Blood Urea Nitrogen 18 mg/dL (9-20); Calcium 9.6 mg/dL (8.4-10.2); Carbon Dioxide 25 mmol/L (22-32); Chloride 107 mmol/L (98-107); Cholesterol 272 mg/dL (140-199); Estimated Glomerular Filt Rate > 60.0 mL/min (>60); Globulin 2.9 g/dL (1.7-4.1); Glucose 89 mg/dL (70-100); HDL Cholesterol 47 mg/dL (40-60); HEMOLYSIS < 15 (0-50); LDL Cholesterol Calculated 185 mg/dL (<100); Potassium 4.1 mmol/L (3.4-5.1); Sodium 140 mmol/L (137-145); Total Protein 7.5 g/dL (6.3-8.2); Triglycerides 198 mg/dL (35-150)
[2021-02-15 11:39] LABS: Prostate Specific Antigen 0.771 ng/mL (0.10-4.00)
== END ==
PROVIDERS: Family Provider Family Medicine; PCP Family Medicine; Referring Provider Family Medicine; Visit Provider Family Medicine
DX: Z00.00 Encounter for general adult medical examination without abnormal findings (principal)
CPT/HCPCS: 36415; 80053; 80061; 84153; 84443; 85025

== ENCOUNTER → 2022-07-18 09:11 | Outpatient (CLI) | payer OTHER, SELFPAY ==
--- NOTE | 2022-07-18 09:15 | DI.RAD.S_ITS ---
PROCEDURE: XR LUMBAR SPINE 2-3V INDICATIONS: LEFT LEG PAIN TECHNIQUE: 3 views of the lumbar spine were acquired. COMPARISON: None. FINDINGS: Bones: 5 [id number] vertebrae are present. There is normal bony alignment. There is mild to moderate diffuse intervertebral disc space narrowing, endplate sclerosis and facet sclerosis in the lower lumbar spine. No vertebral body compression fractures. No suspicious bony lesions. Soft tissues: Overlying bowel gas pattern is normal. No suspicious soft tissue calcifications. IMPRESSION: Degenerative change. No compression deformities. Dictated by: Rossy Reinoso M.D. on 07/18/2022 at 12:25 Approved by: Rossy Reinoso M.D. on 07/18/2022 at 12:27
--- NOTE | 2022-07-18 09:15 | DI.RAD.S_ITS ---
PROCEDURE: XR HIP W PEL IF DONE LT 2V INDICATIONS: LEFT LEG PAIN TECHNIQUE: AP pelvis with lateral view(s) of the left hip(s). COMPARISON: None. FINDINGS: Bones: No acute fracture or dislocation. There is a questionable bony erosion of the greater trochanter visualized on the frogleg view. No other suspicious bony lesions. Soft tissues: The visualized bowel gas pattern is normal. No suspicious soft tissue calcifications. IMPRESSION: Questionable bony erosion of the greater trochanter as above. If further characterization is warranted, CT or MRI of the pelvis could be used. Dictated by: Rossy Reinoso M.D. on 07/18/2022 at 12:24 Approved by: Rossy Reinoso M.D. on 07/18/2022 at 12:25
== END ==
PROVIDERS: Family Provider Family Medicine; PCP Family Medicine; Referring Provider Family Medicine; Visit Provider Family Medicine
DX: M47.816 Spondylosis without myelopathy or radiculopathy, lumbar region (principal); M79.605 Pain in left leg
CPT/HCPCS: 72100; 73502

== ENCOUNTER → 2022-09-02 13:41 | Outpatient (CLI) | payer OTHER, SELFPAY ==
--- NOTE | 2022-09-02 | DI.MRI.S_ITS ---
PROCEDURE: MR LUMBAR SPINE WO CON INDICATIONS: LOW BACK PAIN/PAIN IN LEFT LEG TECHNIQUE: Noncontrast sagittal T1 spin echo and T2 fast echo, sagittal STIR, and T2 fast spin echo through the lumbar spine. In cases with scoliosis, additional coronal T2 fast spin echo may be performed. COMPARISON: None. FINDINGS: Normal lumbar vertebral body height and alignment. No suspicious focal marrow signal abnormality or bone marrow edema. Normal position and appearance of the conus. Regional soft tissues normal. At T12-L1, no spinal canal or neural foraminal stenosis. At L1-L2, disc bulge flattens the ventral thecal sac. No mass effect upon the traversing L2 nerve roots. No neural foraminal stenosis. At L2-L3, diffuse disc bulge flattens the ventral thecal sac with mild displacement of the descending bilateral L3 nerve roots in both subarticular zones. Foraminal components of the disc bulge produce trace neural foraminal narrowing. At L3-L4, diffuse disc bulge and a superimposed broad-based posterior disc protrusion flatten and indent the ventral thecal sac. Mild mass effect on the descending L4 nerve roots in both subarticular zones. Mild bilateral neural foraminal narrowing due to foraminal components of the disc bulge and facet hypertrophy. At L4-L5, diffuse disc bulge and a superimposed broad-based posterior disc protrusion most prominent in the left paracentral and subarticular zones flattens and indents the ventral thecal sac with displacement of the descending bilateral L5 nerve roots in both subarticular zones (left greater than right). Foraminal components of the disc bulge and facet hypertrophy combine to produce moderate left and mild right neural foraminal stenosis with disc material abutting the exiting left L4 nerve root undersurface. At L5-S1, diffuse disc bulge flattens the ventral thecal sac without mass effect upon the traversing S1 nerve roots. Moderate left and mild right neural foraminal narrowing with disc material abutting the undersurface of the exiting left L5 nerve root. IMPRESSION: Multilevel multifactorial degenerative changes worst at L4-L5 and L5-S1 where there is possible focal nerve root impingement. Dictated by: Kavon Olguin M.D. on 09/02/2022 at 15:41 Approved by: Kavon Olguin M.D. on 09/02/2022 at 15:44
== END ==
PROVIDERS: Family Provider Family Medicine; PCP Family Medicine; Referring Provider Family Medicine; Visit Provider Family Medicine
DX: M47.26 Other spondylosis with radiculopathy, lumbar region (principal); M47.27 Other spondylosis with radiculopathy, lumbosacral region; M79.605 Pain in left leg
CPT/HCPCS: 72148

== ENCOUNTER → 2022-10-04 16:27 | Outpatient (CLI) | payer OTHER, SELFPAY ==
--- NOTE | 2022-10-04 | DI.RAD.S_ITS ---
PROCEDURE: XR FOOT LT MIN 3V INDICATIONS: LEFT HEEL PAIN TECHNIQUE: 3 views of the foot were acquired. COMPARISON: None. FINDINGS: Bones: No fractures or dislocations. No suspicious bony lesions. Mild midfoot osteoarthritis. Plantar calcaneal bone spur. Soft tissues: No tibiotalar joint effusion. Achilles tendon appears normal. IMPRESSION: Large plantar calcaneal bone spur. Dictated by: Cori Colon MD, PhD on 10/04/2022 at 16:43 Approved by: Cori Colon MD, PhD on 10/04/2022 at 16:44
== END ==
PROVIDERS: Family Provider Family Medicine; PCP Family Medicine; Referring Provider Family Medicine; Visit Provider Family Medicine
DX: M79.672 Pain in left foot (principal); M77.32 Calcaneal spur, left foot
CPT/HCPCS: 73630

== ENCOUNTER 2022-10-06 13:45 | Outpatient (RCR) | payer OTHER, SELFPAY ==
--- NOTE | 2022-07-21 19:31 | PT.OIE ---
Current Diagnoses Pain in left hip (07/21/22) Pain in left leg (07/21/22) Pain in leg, unspecified (07/21/22) Visit Care Team Role Provider Type Tripp Joseph MD Attending Provider Physician Family Provider Primary Care Provider Referring Provider Specialty: Family Practice Address: [address] [place] [address], [facility], [address] Email: [email or web address] Physical Therapy Initial Evaluation PT-OP-A Visit Information Start: 07/21/22 09:01 Freq: Status: Active Protocol: Document 07/21/22 09:49 [facility] (Rec: 07/21/22 10:38 [facility] [id number]) Out-Patient Physical Therapy Visit Information Visit Information Visit Type Initial Evaluation Visit Start Time 09:50 Visit Stop Time 10:30 Total Visit Minutes 45 Visit Number 1 Evaluation Information Evaluation Date 07/21/22 PT-OP-B Current Condition Start: 07/21/22 09:01 Freq: Status: Active Protocol: Document 07/21/22 09:49 [facility] (Rec: 07/21/22 10:38 [facility] [id number]) Current Condition History of Current Condition Onset Date February 2022 Current Complaints L anterior hip pain made worse with standing and walking History of Current Condition In February 2022 Lukas did a lift and felt a thunk in his left hip and or sacral region He now describes anterior hip pain on the ball and numbness that goes down the anterior leg to toe. Pain seems to be anterior in nature. Pain is worse with standing and walking and relieved with sitting Prior Treatments and Tests X-ray reports questionable erosion of the greater trochanter Treatment Goals Patient/Caregiver Goals Pts goals include decreasing pain and improving his function Prior Functional Status Baseline Function- ADL's Independent Baseline Function- Mobility Independent Current Functional Impairments (Reported) Functional Limitations- ADL's limited in activites around his home that require lifting Functional Limitations- Mobility/Gait pain with walking more than 2 blocks and moderate difficulty reported, pain with standing more than 1 hour Functional Limitations- Work/School limited in standing at his desk due to pain PT-OP-C Subjective Start: 07/21/22 09:01 Freq: Status: Active Protocol: Document 07/21/22 09:45 [facility] (Rec: 07/21/22 19:24 [facility] [id number]) Patient Questionnaires Lower Extremity Functional Scale LEFS Score 41 LEFS Impairment 40 to 59% Impaired (Score 32- 47) OP-PT Pain Assessment Location sacrum Pain Location Details central sacral pain Intensity 3 Scale Used Numeric (0 - 10) left anterior hip Pain Location Details pain radiates down left anterior medial leg to the big toe Intensity 3 Scale Used Numeric (0 - 10) PT-OP-F Manual Assessment Start: 07/21/22 09:01 Freq: Status: Active Protocol: Document 07/21/22 09:45 [facility] (Rec: 07/21/22 19:24 [facility] [id number]) Manual Assessments Soft Tissue Assessment Soft Tissue Mobility Assessment left quadratus lumborum tightness and Left greater than Right paraspinal tightness Joint Mobility Assessment Joint Mobility Assessment pain in the left anterior hip with hip extension, hip extension also increases numbness no hard end feel or bony blocks of movement PT-OP-K Range of Motion Start: 07/21/22 09:01 Freq: Status: Active Protocol: Document 07/21/22 09:45 [facility] (Rec: 07/21/22 19:24 [facility] [id number]) Hip Goniometric Range of Motion Hip left Hip ROM WFL No Testing Position Supine Flexion w/Knee Flexed 110 Straight Leg Raise 50 External Rotation 35 Comments pain with hip extension but there is no limitations with hip extension PT-OP-M Strength Start: 07/21/22 09:01 Freq: Status: Active Protocol: Document 07/21/22 09:45 [facility] (Rec: 07/21/22 19:24 [facility] [id number]) Hip Strength Hip Manual Muscle Testing Left Flexion (L2) 4 Good Extension (S1) 3 Fair Abduction 3+ Fair+ External Rotation 4 Good Internal Rotation 4 Good Comments pain with active hip extension so no overpressure was performed PT-OP-Q Treatments Start: 07/21/22 09:01 Freq: Status: Active Protocol: Document 07/21/22 09:49 [facility] (Rec: 07/21/22 18:44 [facility] [id number]) Therapeutic Exercises Sidelying Exercises sidelying clam shells Reps/Minutes 3 x 10 reps Other Exercises nessa pose Reps/Minutes walk hands to the right to stretch out the left QL quadruped rock backs Reps/Minutes x 10 reps Self-Care/Home Management Treatment Education Patient Education Home Exercise Program,Joint Protection,Pain Management Other Education pt educated on icing the anterior left hip 1-2 times per day, decreasing standing time and avoiding anterior pelvic tilt in standing PT-OP-T Assessment and Plan Start: 07/21/22 09:01 Freq: Status: Active Protocol: Document 07/21/22 09:45 [facility] (Rec: 07/21/22 19:24 [facility] [id number]) Physical Therapy Assessment Rehab Potential Rehabilitation Potential Good Evaluation Complexity Number of Personal Factors/Comorbidities 0 Number of Body Systems Impaired 1-2 Clinical Presentation at Evaluation Stable Impairments Impairments Activity Tolerance,Functional Activities,Functional Mobility ,Gait,Pain,Posture,ROM,Soft Tissue Mobility,Strength,Tone Other Impairments pt is limited in his walking distance due to pain and has pain rolling over in bed Goals 3 Impairment Gluteus medius weakness B with positive hip drop with SLS Short Term Goal (STG) Junior is able to tolerate gentle gluteus medius stabilization exercises STG Duration 4 weeks Jail Goal (LTG) Junior is able to perform a single leg stance without a hip drop LTG Duration 12 weeks 2 Impairment Pain rated 3/10 with intermittent radiating pain and numbness down the anterior medial hip to the big toe Jail Goal (LTG) Lukas reports a overall reduction of hip pain and is no longer experiencing any radiating symptoms LTG Duration 12 weeks 1 Impairment Left sided hip pain that is worse in standing and with any hip extension limiting walking distance to 2 blocks [employer]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 Walking distance is increased to 1 mile or better LTG Duration 12 weeks Assessment Summary Assessment Lukas presents to Physical Therapy with a onset of hip pain that began February 2022 after doing Telly for exercise. He reports his pain is in the anterior left hip. It gets worse with standing and after a while he will experience radiating symptoms down the left anterior medial leg to his big toe. He also reports symptoms of numbness in the anterior medial hip. Sitting does not cause pain. He has had a Xray which shows questionable bony erosion of the greater tronchanter. I was unable to reproduce any pain over the greater trochanter and with MMT for the piriformis there is no pain reported. Hip extension aggravated his symptoms both with active and passive ROM. Pain increases the longer he is in hip extension. He is weak in his gluteus medius bilaterally and shows a + gluteus medius drop with single leg stance. Lumbar ROM is restricted into lumbar flexion and right sidebending. Lukas reports he can feel a stretch with this but no pain is reproduced in his hip. There is no bony blocks notes with the joint feel but pain with anterior displacement of the hip. I feel Lukas would benefit from further work up with a MRI to look closer at his hip capsule and to further evaluate the X -ray findings. I did start Lukas with gentle gluteus medius stabilization exercises today and stretches for his lumbar paraspinals. He tolerated this well and was advised to ice his anterior hip as well as take his anti inflammatories as prescribed. Lukas is a good candidate for PT Physical Therapy Plan Frequency and Duration Frequency of Treatment 2x/Week Duration of treatment (weeks) 12 Plan of Care Start Date 07/21/22 Plan of Care End Date 10/19/21 Therapeutic Interventions Therapeutic Interventions Home Exercise Program,Manual Therapy,Neuromuscular Re- education,Patient/Caregiver Education,Self-Care/Home Management,Therapeutic Exercises Modalities Cold Pack/Ice Massage Next Visit Focus/Plan Next Note Type Treatment Note Next Visit Plan Assess how Ulkas did with gluteus medius stabilization, work on MFR of the left paraspinals and begin core activation training for SI joint stabilization
--- NOTE | 2022-07-21 19:31 | PT.OPPOC ---
Physical, Occupational & Speech Therapy At [facility] Current Diagnoses Pain in left hip (07/21/22) Pain in left leg (07/21/22) Pain in leg, unspecified (07/21/22) Visit Care Team Role Provider Type Tripp Joseph MD Attending Provider Physician Family Provider Primary Care Provider Referring Provider Specialty: Family Practice Address: [address] [place] [address], [facility] [place], [place], [facility] Email: [email or web address] Plan Of Care PT-OP-T Assessment and Plan Start: 07/21/22 09:01 Freq: Status: Active Protocol: Document 07/21/22 09:45 [facility] (Rec: 07/21/22 19:24 [facility] [id number]) Physical Therapy Assessment Rehab Potential Rehabilitation Potential Good Evaluation Complexity Number of Personal Factors/Comorbidities 0 Number of Body Systems Impaired 1-2 Clinical Presentation at Evaluation Stable Impairments Impairments Activity Tolerance,Functional Activities,Functional Mobility ,Gait,Pain,Posture,ROM,Soft Tissue Mobility,Strength,Tone Other Impairments pt is limited in his walking distance due to pain and has pain rolling over in bed Goals 3 Impairment Gluteus medius weakness B with positive hip drop with SLS Short Term Goal (STG) Junior is able to tolerate gentle gluteus medius stabilization exercises STG Duration 4 weeks Shelter Goal (LTG) Junior is able to perform a single leg stance without a hip drop LTG Duration 12 weeks 2 Impairment Pain rated 3/10 with intermittent radiating pain and numbness down the anterior medial hip to the big toe Photographic 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 Walking distance is increased to 1 mile or better LTG Duration 12 weeks Assessment Summary Assessment Lukas presents to Physical Therapy with a onset of hip pain that began February 2022 after doing deadlifts for exercise. He reports his pain is in the anterior left hip. It gets worse with standing and after a while he will experience radiating symptoms down the left anterior medial leg to his big toe. He also reports symptoms of numbness in the anterior medial hip. Sitting does not cause pain. He has had a Xray which shows questionable bony erosion of the greater tronchanter. I was unable to reproduce any pain over the greater trochanter and with MMT for the piriformis there is no pain reported. Hip extension aggravated his symptoms both with active and passive ROM. Pain increases the longer he is in hip extension. He is weak in his gluteus medius bilaterally and shows a + gluteus medius drop with single leg stance. Lumbar ROM is restricted into lumbar flexion and right sidebending. Lukas reports he can feel a stretch with this but no pain is reproduced in his hip. There is no bony blocks notes with the joint feel but pain with anterior displacement of the hip. I feel Lukas would benefit from further work up with a MRI to look closer at his hip capsule and to further evaluate the X -ray findings. I did start Lukas with gentle gluteus medius stabilization exercises today and stretches for his lumbar paraspinals. He tolerated this well and was advised to ice his anterior hip as well as take his anti inflammatory medication as prescribed. Lukas is a good candidate for PT Physical Therapy Plan Frequency and Duration Frequency of Treatment 2x/Week Duration of treatment (weeks) 12 Plan of Care Start Date 07/21/22 Plan of Care End Date 10/19/21 Therapeutic Interventions Therapeutic Interventions Home Exercise Program,Manual Therapy,Neuromuscular Re- education,Patient/Caregiver Education,Self-Care/Home Management,Therapeutic Exercises Modalities Cold Pack/Ice Massage Next Visit Focus/Plan Next Note Type Treatment Note Next Visit Plan Assess how Lukas did with gluteus medius stabilization, work on MFR of the left paraspinals and begin core activation training for SI joint stabilization Plan of Care Dates Plan of Care Start Date 07/21/22 Plan of Care End Date 10/19/21 Electronically Signed by: Judith Lebron, PT 07/21/221930 If you are in agreement with this Plan of Care, please return a signed and dated copy. I have reviewed this Plan of Care and certify that the skilled therapy services above are required to meet the patient?s needs. Physician Signature Date Printed Name and Credentials Clinical Instructor Signature Printed Name and Credentials
--- NOTE | 2022-08-02 15:46 | PT.OTN ---
Current Diagnoses Pain in left hip (08/02/22) Pain in left leg (08/02/22) Pain in leg, unspecified (08/02/22) Physical Therapy Treatment Note PT-OP-A Visit Information Start: 07/21/22 09:01 Freq: Status: Active Protocol: Document 08/02/22 09:00 [facility] (Rec: 08/02/22 10:36 [facility] [id number]) Out-Patient Physical Therapy Visit Information Visit Information Visit Type Treatment Note Visit Start Time 09:50 Visit Stop Time 10:30 Total Visit Minutes 40 Visit Number 2 PT-OP-B Current Condition Start: 07/21/22 09:01 Freq: Status: Active Protocol: Document 07/21/22 09:49 [facility] (Rec: 07/21/22 10:38 [facility] [id number]) Current Condition History of Current Condition Onset Date February 2022 Current Complaints L anterior hip pain made worse with standing and walking History of Current Condition In February 2022 Lukas did a lift and felt a thunk in his left hip and or sacral region He now describes anterior hip pain on the ball and numbness that goes down the anterior leg to toe. Pain seems to be anterior in nature. Pain is worse with standing and walking and relieved with sitting Prior Treatments and Tests X-ray reports questionable erosion of the greater trochanter Treatment Goals Patient/Caregiver Goals Pts goals include decreasing pain and improving his function Prior Functional Status Baseline Function- ADL's Independent Baseline Function- Mobility Independent Current Functional Impairments (Reported) Functional Limitations- ADL's limited in activites around his home that require lifting Functional Limitations- Mobility/Gait pain with walking more than 2 blocks and moderate difficulty reported, pain with standing more than 1 hour Functional Limitations- Work/School limited in standing at his desk due to pain PT-OP-C Subjective Start: 07/21/22 09:01 Freq: Status: Active Protocol: Document 08/02/22 09:00 [facility] (Rec: 08/02/22 15:43 [facility] [id number]) OP-PT Subjective Patient Comments Patient Comments Lukas reports he has been working on the exercises given and hasn't had to stand this past week which is better on his hip. He does note by the end of the day he has more pain. He feels as if the pain is coming from the left SI joint region Patient Reported Progress Same PT-OP-F Manual Assessment Start: 07/21/22 09:01 Freq: Status: Active Protocol: Document 07/21/22 09:45 [facility] (Rec: 07/21/22 19:24 [facility] [id number]) Manual Assessments Soft Tissue Assessment Soft Tissue Mobility Assessment left quadratus lumborum tightness and Left greater than Right paraspinal tightness Joint Mobility Assessment Joint Mobility Assessment pain in the left anterior hip with hip extension, hip extension also increases numbness no hard end feel or bony blocks of movement PT-OP-K Range of Motion Start: 07/21/22 09:01 Freq: Status: Active Protocol: Document 07/21/22 09:45 [facility] (Rec: 07/21/22 19:24 [facility] [id number]) Hip Goniometric Range of Motion Hip left Hip ROM WFL No Testing Position Supine Flexion w/Knee Flexed 110 Straight Leg Raise 50 External Rotation 35 Comments pain with hip extension but there is no limitations with hip extension PT-OP-M Strength Start: 07/21/22 09:01 Freq: Status: Active Protocol: Document 07/21/22 09:45 [facility] (Rec: 07/21/22 19:24 [facility] [id number]) Hip Strength Hip Manual Muscle Testing Left Flexion (L2) 4 Good Extension (S1) 3 Fair Abduction 3+ Fair+ External Rotation 4 Good Internal Rotation 4 Good Comments pain with active hip extension so no overpressure was performed PT-OP-Q Treatments Start: 07/21/22 09:01 Freq: Status: Active Protocol: Document 08/02/22 09:00 [facility] (Rec: 08/02/22 15:36 [facility] [id number]) Therapeutic Exercises Supine Exercises ITB stretch with strap Reps/Minutes hold 1-2 minutes supine hamstring stretch Side bilateral Equipment Used strap Reps/Minutes hold 1-2 min Manual Therapy Treatment Soft Tissue Mobilization MFR left QL Body Location left QL Mobilization Type Myofascial Release Intensity/Depth Moderate Body Position Sidelying Comments manual release of the QL and downgliding of the pelvis to stretch the QL MFR proximal ITB Body Location proximal ITB attachment left hip Mobilization Type Myofascial Release Intensity/Depth Moderate Body Position Sidelying Comments right sidelying with pillow between knees Manual Techniques sacral decompression technique Body Position Prone Comments MET for sacral counter nutation PT-OP-R Modalities Start: 08/02/22 15:43 Freq: Status: Active Protocol: Document 08/02/22 09:00 [facility] (Rec: 08/02/22 15:44 [facility] [id number]) Ultrasound Therapy Treatment left lateral hip and ITB attachment Treatment Duration (minutes) 8 Patient Position Sidelying Coupling Medium Ultrasound Gel Applicator Size (cm2) 2 Mode Setting Continuous Duty Cycle 100% Intensity Setting (w/cm2) 1.5 PT-OP-T Assessment and Plan Start: 07/21/22 09:01 Freq: Status: Active Protocol: Document 08/02/22 09:00 [facility] (Rec: 08/02/22 15:36 [facility] [id number]) Physical Therapy Assessment Assessment Summary Assessment I worked today on the left ITB proximal attachment with US, manual therapy and stretches, pt feels this area of his pelvis may be the root of where his pain is coming from as this is where he felt his initial pain following his deadlift that initiated symptoms. He is very tight in the hamstrings and ITB and I added in stretches for HEP Physical Therapy Plan Frequency and Duration Frequency of Treatment 2x/Week Duration of treatment (weeks) 12 Plan of Care Start Date 07/21/22 Plan of Care End Date 10/19/21 Therapeutic Interventions Therapeutic Interventions Home Exercise Program,Manual Therapy,Neuromuscular Re- education,Patient/Caregiver Education,Self-Care/Home Management,Therapeutic Exercises Modalities Cold Pack/Ice Massage Next Visit Focus/Plan Next Note Type Treatment Note Next Visit Plan ITB release, decompression of the left SI joint, SI joint stabilization, HS stretch and ITB stretch
--- NOTE | 2022-08-04 18:09 | PT.OTN ---
Current Diagnoses Pain in left hip (08/04/22) Pain in left leg (08/04/22) Pain in leg, unspecified (08/04/22) Physical Therapy Treatment Note PT-OP-A Visit Information Start: 07/21/22 09:01 Freq: Status: Active Protocol: Document 08/04/22 17:51 [facility] (Rec: 08/04/22 18:09 [facility] [id number]) Out-Patient Physical Therapy Visit Information Visit Information Visit Type Treatment Note Visit Note pt is 25 min late for appt today but would like to stay for the 20 that he can Visit Start Time 10:10 Visit Stop Time 10:35 Total Visit Minutes 25 Visit Number 2 PT-OP-B Current Condition Start: 07/21/22 09:01 Freq: Status: Active Protocol: Document 07/21/22 09:49 [facility] (Rec: 07/21/22 10:38 [facility] [id number]) Current Condition History of Current Condition Onset Date February 2022 Current Complaints L anterior hip pain made worse with standing and walking History of Current Condition In February 2022 Lukas did a lift and felt a thunk in his left hip and or sacral region He now describes anterior hip pain on the ball and numbness that goes down the anterior leg to toe. Pain seems to be anterior in nature. Pain is worse with standing and walking and relieved with sitting Prior Treatments and Tests X-ray reports questionable erosion of the greater trochanter Treatment Goals Patient/Caregiver Goals Pts goals include decreasing pain and improving his function Prior Functional Status Baseline Function- ADL's Independent Baseline Function- Mobility Independent Current Functional Impairments (Reported) Functional Limitations- ADL's limited in activites around his home that require lifting Functional Limitations- Mobility/Gait pain with walking more than 2 blocks and moderate difficulty reported, pain with standing more than 1 hour Functional Limitations- Work/School limited in standing at his desk due to pain PT-OP-C Subjective Start: 07/21/22 09:01 Freq: Status: Active Protocol: Document 08/04/22 17:51 [facility] (Rec: 08/04/22 18:09 [facility] [id number]) OP-PT Subjective Patient Comments Patient Comments Lukas reports when he is not active his pain is better. PT-OP-F Manual Assessment Start: 07/21/22 09:01 Freq: Status: Active Protocol: Document 07/21/22 09:45 [facility] (Rec: 07/21/22 19:24 [facility] [id number]) Manual Assessments Soft Tissue Assessment Soft Tissue Mobility Assessment left quadratus lumborum tightness and Left greater than Right paraspinal tightness Joint Mobility Assessment Joint Mobility Assessment pain in the left anterior hip with hip extension, hip extension also increases numbness no hard end feel or bony blocks of movement PT-OP-K Range of Motion Start: 07/21/22 09:01 Freq: Status: Active Protocol: Document 07/21/22 09:45 [facility] (Rec: 07/21/22 19:24 [facility] [id number]) Hip Goniometric Range of Motion Hip left Hip ROM WFL No Testing Position Supine Flexion w/Knee Flexed 110 Straight Leg Raise 50 External Rotation 35 Comments pain with hip extension but there is no limitations with hip extension PT-OP-M Strength Start: 07/21/22 09:01 Freq: Status: Active Protocol: Document 07/21/22 09:45 [facility] (Rec: 07/21/22 19:24 [facility] [id number]) Hip Strength Hip Manual Muscle Testing Left Flexion (L2) 4 Good Extension (S1) 3 Fair Abduction 3+ Fair+ External Rotation 4 Good Internal Rotation 4 Good Comments pain with active hip extension so no overpressure was performed PT-OP-Q Treatments Start: 07/21/22 09:01 Freq: Status: Active Protocol: Document 08/04/22 17:51 [facility] (Rec: 08/04/22 18:09 [facility] [id number]) Manual Therapy Treatment Soft Tissue Mobilization MFR proximal ITB Body Location proximal ITB attachment left hip Mobilization Type Myofascial Release Intensity/Depth Moderate Body Position Sidelying Comments right sidelying with pillow between knees PT-OP-R Modalities Start: 08/02/22 15:43 Freq: Status: Active Protocol: Document 08/04/22 17:51 [facility] (Rec: 08/04/22 18:09 [facility] [id number]) Hot Pack/Cold Pack Treatment Ice Massage Location left lateral hip Patient Position Sidelying Treatment Duration (minutes) 5 Patient Tolerance Good Ultrasound Therapy Treatment left lateral hip and ITB attachment Treatment Duration (minutes) 8 Patient Position Sidelying Coupling Medium Ultrasound Gel Applicator Size (cm2) 2 Mode Setting Continuous Duty Cycle 100% Intensity Setting (w/cm2) 1.5 PT-OP-T Assessment and Plan Start: 07/21/22 09:01 Freq: Status: Active Protocol: Document 08/04/22 17:51 [facility] (Rec: 08/04/22 18:09 [facility] [id number]) Physical Therapy Assessment Assessment Summary Assessment Lukas was 25 min late today to appt, his appt was shortened due to this. I did add in ice massage today to work at reducing inflammation. Lukas was advised to ice at home and continue with his stretches Physical Therapy Plan Frequency and Duration Frequency of Treatment 2x/Week Duration of treatment (weeks) 12 Plan of Care Start Date 07/21/22 Plan of Care End Date 10/19/21 Next Visit Focus/Plan Next Note Type Treatment Note Next Visit Plan ITB release, decompression of the left SI joint, SI joint stabilization, HS stretch and ITB stretch
--- NOTE | 2022-08-09 11:07 | PT.OTN ---
Current Diagnoses Pain in left hip (08/09/22) Pain in left leg (08/09/22) Pain in leg, unspecified (08/09/22) Physical Therapy Treatment Note PT-OP-A Visit Information Start: 07/21/22 09:01 Freq: Status: Active Protocol: Document 08/09/22 09:50 [facility] (Rec: 08/09/22 10:35 [facility] [id number]) Out-Patient Physical Therapy Visit Information Visit Information Visit Type Treatment Note Visit Start Time 09:50 Visit Stop Time 10:30 Total Visit Minutes 40 Visit Number 3 PT-OP-B Current Condition Start: 07/21/22 09:01 Freq: Status: Active Protocol: Document 07/21/22 09:49 [facility] (Rec: 07/21/22 10:38 [facility] [id number]) Current Condition History of Current Condition Onset Date February 2022 Current Complaints L anterior hip pain made worse with standing and walking History of Current Condition In February 2022 Lukas did a lift and felt a thunk in his left hip and or sacral region He now describes anterior hip pain on the ball and numbness that goes down the anterior leg to toe. Pain seems to be anterior in nature. Pain is worse with standing and walking and relieved with sitting Prior Treatments and Tests X-ray reports questionable erosion of the greater trochanter Treatment Goals Patient/Caregiver Goals Pts goals include decreasing pain and improving his function Prior Functional Status Baseline Function- ADL's Independent Baseline Function- Mobility Independent Current Functional Impairments (Reported) Functional Limitations- ADL's limited in activites around his home that require lifting Functional Limitations- Mobility/Gait pain with walking more than 2 blocks and moderate difficulty reported, pain with standing more than 1 hour Functional Limitations- Work/School limited in standing at his desk due to pain PT-OP-C Subjective Start: 07/21/22 09:01 Freq: Status: Active Protocol: Document 08/09/22 09:50 [facility] (Rec: 08/09/22 10:35 [facility] [id number]) OP-PT Subjective Patient Comments Patient Comments he hasn't had as much numbness in his toes but he hasn't PT-OP-F Manual Assessment Start: 07/21/22 09:01 Freq: Status: Active Protocol: Document 07/21/22 09:45 [facility] (Rec: 07/21/22 19:24 [facility] [id number]) Manual Assessments Soft Tissue Assessment Soft Tissue Mobility Assessment left quadratus lumborum tightness and Left greater than Right paraspinal tightness Joint Mobility Assessment Joint Mobility Assessment pain in the left anterior hip with hip extension, hip extension also increases numbness no hard end feel or bony blocks of movement PT-OP-K Range of Motion Start: 07/21/22 09:01 Freq: Status: Active Protocol: Document 07/21/22 09:45 [facility] (Rec: 07/21/22 19:24 [facility] [id number]) Hip Goniometric Range of Motion Hip left Hip ROM WFL No Testing Position Supine Flexion w/Knee Flexed 110 Straight Leg Raise 50 External Rotation 35 Comments pain with hip extension but there is no limitations with hip extension PT-OP-M Strength Start: 07/21/22 09:01 Freq: Status: Active Protocol: Document 07/21/22 09:45 [facility] (Rec: 07/21/22 19:24 [facility] [id number]) Hip Strength Hip Manual Muscle Testing Left Flexion (L2) 4 Good Extension (S1) 3 Fair Abduction 3+ Fair+ External Rotation 4 Good Internal Rotation 4 Good Comments pain with active hip extension so no overpressure was performed PT-OP-Q Treatments Start: 07/21/22 09:01 Freq: Status: Active Protocol: Document 08/09/22 09:50 [facility] (Rec: 08/09/22 11:06 [facility] [id number]) Therapeutic Exercises Supine Exercises piriformis stretch Reps/Minutes hold 1-2 minutes ITB stretch with strap Reps/Minutes hold 1-2 minutes supine hamstring stretch Side bilateral Equipment Used strap Reps/Minutes hold 1-2 min Manual Therapy Treatment Soft Tissue Mobilization MFR proximal ITB Body Location proximal ITB attachment left hip Mobilization Type Myofascial Release Intensity/Depth Moderate Body Position Sidelying Comments right sidelying with pillow between knees Manual Techniques manual iliopsoas stretch in supine Reps/Duration hold 2 min Comments able to tolerate today for 2 min prior to pain starting in the ASIS region sidelying Sacral rotation technique Type MET Comments right sidelying MET sacral rotation technique sacral decompression technique Body Position Prone Comments MET for sacral counter nutation PT-OP-R Modalities Start: 08/02/22 15:43 Freq: Status: Active Protocol: Document 08/09/22 09:50 [facility] (Rec: 08/09/22 11:07 [facility] [id number]) Hot Pack/Cold Pack Treatment Ice Massage Location left lateral hip Patient Position Sidelying Treatment Duration (minutes) 5 Patient Tolerance Good PT-OP-T Assessment and Plan Start: 07/21/22 09:01 Freq: Status: Active Protocol: Document 08/09/22 09:50 [facility] (Rec: 08/09/22 11:06 [facility] [id number]) Physical Therapy Assessment Assessment Summary Assessment Lukas was able to tolerate both hip ER and hip extension today . His nerve pain seems to be reduced some. Pain is still present especially with standing. Lukas tried to do push ups and also experienced pain. I encouraged continued hamstring stretching and added in piriformis stretch for home Physical Therapy Plan Frequency and Duration Frequency of Treatment 2x/Week Duration of treatment (weeks) 12 Plan of Care Start Date 07/21/22 Plan of Care End Date 10/19/21 Next Visit Focus/Plan Next Note Type Treatment Note Next Visit Plan ITB release, decompression of the left SI joint, SI joint stabilization, HS stretch and ITB stretch
--- NOTE | 2022-08-11 13:42 | PT.OTN ---
Current Diagnoses Pain in left hip (08/11/22) Pain in left leg (08/11/22) Pain in leg, unspecified (08/11/22) Physical Therapy Treatment Note PT-OP-A Visit Information Start: 07/21/22 09:01 Freq: Status: Active Protocol: Document 08/11/22 09:48 [facility] (Rec: 08/11/22 10:34 [facility] [id number]) Out-Patient Physical Therapy Visit Information Visit Information Visit Type Treatment Note Visit Start Time 09:45 Visit Stop Time 10:30 Total Visit Minutes 45 Visit Number 4 PT-OP-B Current Condition Start: 07/21/22 09:01 Freq: Status: Active Protocol: Document 07/21/22 09:49 [facility] (Rec: 07/21/22 10:38 [facility] [id number]) Current Condition History of Current Condition Onset Date February 2022 Current Complaints L anterior hip pain made worse with standing and walking History of Current Condition In February 2022 Lukas did a lift and felt a thunk in his left hip and or sacral region He now describes anterior hip pain on the ball and numbness that goes down the anterior leg to toe. Pain seems to be anterior in nature. Pain is worse with standing and walking and relieved with sitting Prior Treatments and Tests X-ray reports questionable erosion of the greater trochanter Treatment Goals Patient/Caregiver Goals Pts goals include decreasing pain and improving his function Prior Functional Status Baseline Function- ADL's Independent Baseline Function- Mobility Independent Current Functional Impairments (Reported) Functional Limitations- ADL's limited in activites around his home that require lifting Functional Limitations- Mobility/Gait pain with walking more than 2 blocks and moderate difficulty reported, pain with standing more than 1 hour Functional Limitations- Work/School limited in standing at his desk due to pain PT-OP-C Subjective Start: 07/21/22 09:01 Freq: Status: Active Protocol: Document 08/11/22 09:48 [facility] (Rec: 08/11/22 10:34 [facility] [id number]) OP-PT Subjective Patient Comments Patient Comments back at work, without standing as much he doesn't get the numbing into his toe but when he feels it slightly he sits down. Patient Reported Progress Same PT-OP-F Manual Assessment Start: 07/21/22 09:01 Freq: Status: Active Protocol: Document 07/21/22 09:45 [facility] (Rec: 07/21/22 19:24 [facility] [id number]) Manual Assessments Soft Tissue Assessment Soft Tissue Mobility Assessment left quadratus lumborum tightness and Left greater than Right paraspinal tightness Joint Mobility Assessment Joint Mobility Assessment pain in the left anterior hip with hip extension, hip extension also increases numbness no hard end feel or bony blocks of movement PT-OP-K Range of Motion Start: 07/21/22 09:01 Freq: Status: Active Protocol: Document 07/21/22 09:45 [facility] (Rec: 07/21/22 19:24 [facility] [id number]) Hip Goniometric Range of Motion Hip left Hip ROM WFL No Testing Position Supine Flexion w/Knee Flexed 110 Straight Leg Raise 50 External Rotation 35 Comments pain with hip extension but there is no limitations with hip extension PT-OP-M Strength Start: 07/21/22 09:01 Freq: Status: Active Protocol: Document 07/21/22 09:45 [facility] (Rec: 07/21/22 19:24 [facility] [id number]) Hip Strength Hip Manual Muscle Testing Left Flexion (L2) 4 Good Extension (S1) 3 Fair Abduction 3+ Fair+ External Rotation 4 Good Internal Rotation 4 Good Comments pain with active hip extension so no overpressure was performed PT-OP-Q Treatments Start: 07/21/22 09:01 Freq: Status: Active Protocol: Document 08/11/22 09:48 [facility] (Rec: 08/11/22 13:42 [facility] [id number]) Cardio Equipment Bicycle (Upright) Duration (Minutes) 3 Other trial of upright bike however pain increased so it was stopped Therapeutic Exercises Supine Exercises piriformis stretch Reps/Minutes hold 1-2 minutes supine hamstring stretch Side bilateral Equipment Used strap Reps/Minutes hold 1-2 min Other Exercises nessa pose Reps/Minutes walk hands to the right to stretch out the left QL Manual Therapy Treatment Soft Tissue Mobilization MFR proximal ITB Body Location proximal ITB attachment left hip Mobilization Type Myofascial Release Intensity/Depth Moderate Body Position Sidelying Comments right sidelying with pillow between knees Manual Techniques prone manual hip ER stretch Reps/Duration 5 reps with end range stretch Comments good tolerance and no increase in pain symptoms sacral decompression technique Body Position Prone Comments MET for sacral counter nutation Self-Care/Home Management Treatment Activities Self-Care/Home Management Activities pt was shown how to use miracle balls for self piriformis release PT-OP-R Modalities Start: 08/02/22 15:43 Freq: Status: Active Protocol: Document 08/11/22 09:48 [facility] (Rec: 08/11/22 13:42 [facility] [id number]) Ultrasound Therapy Treatment left lateral hip and ITB attachment Treatment Duration (minutes) 8 Patient Position Sidelying Coupling Medium Ultrasound Gel Applicator Size (cm2) 2 Mode Setting Continuous Duty Cycle 100% Intensity Setting (w/cm2) 1.5 PT-OP-T Assessment and Plan Start: 07/21/22 09:01 Freq: Status: Active Protocol: Document 08/11/22 09:48 [facility] (Rec: 08/11/22 13:42 [facility] [id number]) Physical Therapy Assessment Assessment Summary Assessment Lukas is still experiencing the nerve pain with any lumbar extension or anterior pelvic tilt. I did try the upright bike today and this seemed to aggravate his symptoms so it was stopped. He is tolerating better ROM with manual stretching and was able to tolerate prone knee flexion and hip ER stretch today. A MRI may be beneficial to help with diagnosis if nerve symptoms are stemming from the lumbar spine verses the hip Physical Therapy Plan Frequency and Duration Frequency of Treatment 2x/Week Duration of treatment (weeks) 12 Plan of Care Start Date 07/21/22 Plan of Care End Date 10/19/21 Therapeutic Interventions Therapeutic Interventions Home Exercise Program,Manual Therapy,Neuromuscular Re- education,Patient/Caregiver Education,Self-Care/Home Management,Therapeutic Exercises Modalities Cold Pack/Ice Massage Next Visit Focus/Plan Next Note Type Treatment Note Next Visit Plan work on core stabilization, ITB release, decompression of the left SI joint, SI joint stabilization, HS stretch and ITB stretch
--- NOTE | 2022-08-16 16:19 | PT.OTN ---
Current Diagnoses Pain in left hip (08/16/22) Pain in left leg (08/16/22) Pain in leg, unspecified (08/16/22) Physical Therapy Treatment Note PT-OP-A Visit Information Start: 07/21/22 09:01 Freq: Status: Active Protocol: Document 08/16/22 15:17 [facility] (Rec: 08/16/22 16:18 [facility] [id number]) Out-Patient Physical Therapy Visit Information Visit Information Visit Type Treatment Note Visit Start Time 15:15 Visit Stop Time 15:55 Total Visit Minutes 40 Visit Number 5 PT-OP-B Current Condition Start: 07/21/22 09:01 Freq: Status: Active Protocol: Document 07/21/22 09:49 [facility] (Rec: 07/21/22 10:38 [facility] [id number]) Current Condition History of Current Condition Onset Date February 2022 Current Complaints L anterior hip pain made worse with standing and walking History of Current Condition In February 2022 Lukas did a lift and felt a thunk in his left hip and or sacral region He now describes anterior hip pain on the ball and numbness that goes down the anterior leg to toe. Pain seems to be anterior in nature. Pain is worse with standing and walking and relieved with sitting Prior Treatments and Tests X-ray reports questionable erosion of the greater trochanter Treatment Goals Patient/Caregiver Goals Pts goals include decreasing pain and improving his function Prior Functional Status Baseline Function- ADL's Independent Baseline Function- Mobility Independent Current Functional Impairments (Reported) Functional Limitations- ADL's limited in activites around his home that require lifting Functional Limitations- Mobility/Gait pain with walking more than 2 blocks and moderate difficulty reported, pain with standing more than 1 hour Functional Limitations- Work/School limited in standing at his desk due to pain PT-OP-C Subjective Start: 07/21/22 09:01 Freq: Status: Active Protocol: Document 08/16/22 15:17 [facility] (Rec: 08/16/22 16:18 [facility] [id number]) OP-PT Subjective Patient Comments Patient Comments pt notes his hip is feeling a little better, he can flip onto his stomach without it hurting. He has a been a month on the anti inflammatory and he feels like maybe it is not hurting quite as much. He has been sitting at work and not standing as standing and walking still bring on the anterior hip pain and radicular symptoms. Has appt with Dr Strong on . PT-OP-F Manual Assessment Start: 07/21/22 09:01 Freq: Status: Active Protocol: Document 07/21/22 09:45 [facility] (Rec: 07/21/22 19:24 [facility] [id number]) Manual Assessments Soft Tissue Assessment Soft Tissue Mobility Assessment left quadratus lumborum tightness and Left greater than Right paraspinal tightness Joint Mobility Assessment Joint Mobility Assessment pain in the left anterior hip with hip extension, hip extension also increases numbness no hard end feel or bony blocks of movement PT-OP-K Range of Motion Start: 07/21/22 09:01 Freq: Status: Active Protocol: Document 07/21/22 09:45 [facility] (Rec: 07/21/22 19:24 [facility] [id number]) Hip Goniometric Range of Motion Hip left Hip ROM WFL No Testing Position Supine Flexion w/Knee Flexed 110 Straight Leg Raise 50 External Rotation 35 Comments pain with hip extension but there is no limitations with hip extension PT-OP-M Strength Start: 07/21/22 09:01 Freq: Status: Active Protocol: Document 07/21/22 09:45 [facility] (Rec: 07/21/22 19:24 [facility] [id number]) Hip Strength Hip Manual Muscle Testing Left Flexion (L2) 4 Good Extension (S1) 3 Fair Abduction 3+ Fair+ External Rotation 4 Good Internal Rotation 4 Good Comments pain with active hip extension so no overpressure was performed PT-OP-Q Treatments Start: 07/21/22 09:01 Freq: Status: Active Protocol: Document 08/16/22 15:17 [facility] (Rec: 08/16/22 16:18 [facility] [id number]) Cardio Equipment Recumbent Bicycle Duration (Minutes) 4 Resistance 1 [address] Position all the way back Therapeutic Exercises Supine Exercises supine hamstring stretch Side bilateral Equipment Used strap Reps/Minutes hold 1-2 min Manual Therapy Treatment Soft Tissue Mobilization MFR proximal ITB Body Location proximal ITB attachment left hip Mobilization Type Myofascial Release Intensity/Depth Moderate Body Position Sidelying Comments right sidelying with pillow between knees Manual Techniques manual hip IR/ER in prone Reps/Duration x 10 reps each with end range stretch prone quad stretch Reps/Duration hold 2 min B prone manual hip ER stretch Reps/Duration 5 reps with end range stretch Comments good tolerance and no increase in pain symptoms sacral decompression technique Body Position Prone Comments MET for sacral counter nutation PT-OP-R Modalities Start: 08/02/22 15:43 Freq: Status: Active Protocol: Document 08/16/22 15:17 [facility] (Rec: 08/16/22 16:18 [facility] [id number]) Ultrasound Therapy Treatment left lateral hip and ITB attachment Treatment Duration (minutes) 8 Patient Position Sidelying Coupling Medium Ultrasound Gel Applicator Size (cm2) 2 Mode Setting Continuous Duty Cycle 100% Intensity Setting (w/cm2) 1.5 PT-OP-T Assessment and Plan Start: 07/21/22 09:01 Freq: Status: Active Protocol: Document 08/16/22 15:17 [facility] (Rec: 08/16/22 16:18 [facility] [id number]) Physical Therapy Assessment Assessment Summary Assessment Lukas notes small improvements in his symptoms. He is able to roll over onto his stomach now. Standing still aggravates his hip and brings on radicular symptoms. I feel he would benefit from further diagnostic testing with a MRI to rule out lumbar disc issues that may be contributing to his symptoms Physical Therapy Plan Frequency and Duration Frequency of Treatment 2x/Week Duration of treatment (weeks) 12 Plan of Care Start Date 07/21/22 Plan of Care End Date 10/19/21 Next Visit Focus/Plan Next Note Type Treatment Note Next Visit Plan work on core stabilization, ITB release, decompression of the left SI joint, SI joint stabilization, HS stretch and ITB stretch
--- NOTE | 2022-09-13 16:48 | PT.OTN ---
Current Diagnoses Pain in left hip (09/13/22) Pain in left leg (09/13/22) Pain in leg, unspecified (09/13/22) Physical Therapy Treatment Note PT-OP-A Visit Information Start: 07/21/22 09:01 Freq: Status: Active Protocol: Document 09/13/22 13:45 [facility] (Rec: 09/13/22 16:42 [facility] [id number]) Out-Patient Physical Therapy Visit Information Visit Information Visit Type Treatment Note Visit Note 08/12 per new insurance authorization Visit Start Time 13:50 Visit Stop Time 14:35 Total Visit Minutes 45 Visit Number 6 PT-OP-B Current Condition Start: 07/21/22 09:01 Freq: Status: Active Protocol: Document 07/21/22 09:49 [facility] (Rec: 07/21/22 10:38 [facility] [id number]) Current Condition History of Current Condition Onset Date February 2022 Current Complaints L anterior hip pain made worse with standing and walking History of Current Condition In February 2022 Lukas did a lift and felt a thunk in his left hip and or sacral region He now describes anterior hip pain on the ball and numbness that goes down the anterior leg to toe. Pain seems to be anterior in nature. Pain is worse with standing and walking and relieved with sitting Prior Treatments and Tests X-ray reports questionable erosion of the greater trochanter Treatment Goals Patient/Caregiver Goals Pts goals include decreasing pain and improving his function Prior Functional Status Baseline Function- ADL's Independent Baseline Function- Mobility Independent Current Functional Impairments (Reported) Functional Limitations- ADL's limited in activites around his home that require lifting Functional Limitations- Mobility/Gait pain with walking more than 2 blocks and moderate difficulty reported, pain with standing more than 1 hour Functional Limitations- Work/School limited in standing at his desk due to pain PT-OP-C Subjective Start: 07/21/22 09:01 Freq: Status: Active Protocol: Document 09/13/22 13:45 [facility] (Rec: 09/13/22 14:35 [facility] [id number]) OP-PT Subjective Patient Comments Patient Comments pt notes he has been feeling really good and working out the muscle has really helped. He isn't back to fully standing at work quite yet. HE feels like working out the muscle in the left SI region that was tight and tense has really helped. PT-OP-F Manual Assessment Start: 07/21/22 09:01 Freq: Status: Active Protocol: Document 07/21/22 09:45 [facility] (Rec: 07/21/22 19:24 [facility] [id number]) Manual Assessments Soft Tissue Assessment Soft Tissue Mobility Assessment left quadratus lumborum tightness and Left greater than Right paraspinal tightness Joint Mobility Assessment Joint Mobility Assessment pain in the left anterior hip with hip extension, hip extension also increases numbness no hard end feel or bony blocks of movement PT-OP-K Range of Motion Start: 07/21/22 09:01 Freq: Status: Active Protocol: Document 07/21/22 09:45 [facility] (Rec: 07/21/22 19:24 [facility] [id number]) Hip Goniometric Range of Motion Hip left Hip ROM WFL No Testing Position Supine Flexion w/Knee Flexed 110 Straight Leg Raise 50 External Rotation 35 Comments pain with hip extension but there is no limitations with hip extension PT-OP-M Strength Start: 07/21/22 09:01 Freq: Status: Active Protocol: Document 07/21/22 09:45 [facility] (Rec: 07/21/22 19:24 [facility] [id number]) Hip Strength Hip Manual Muscle Testing Left Flexion (L2) 4 Good Extension (S1) 3 Fair Abduction 3+ Fair+ External Rotation 4 Good Internal Rotation 4 Good Comments pain with active hip extension so no overpressure was performed PT-OP-Q Treatments Start: 07/21/22 09:01 Freq: Status: Active Protocol: Document 09/13/22 13:45 [facility] (Rec: 09/13/22 14:35 [facility] [id number]) Therapeutic Exercises Supine Exercises iliopsoas stretch in gayle test position Reps/Minutes hold 1-2 min single knee to chest stretch Reps/Minutes hold 1-2 minutes piriformis stretch Reps/Minutes hold 1-2 minutes ITB stretch with strap Reps/Minutes hold 1-2 minutes supine hamstring stretch Side bilateral Equipment Used strap Reps/Minutes hold 1-2 min Prone Exercises prone thoracic extension Reps/Minutes x 10 reps Comments arms at sides with shoulder ER prone on elbows Reps/Minutes x 10 reps holding x 5 seconds Other Exercises 1/2 kneeling iliopsoas stretch Reps/Minutes hold 1-2 minutes Manual Therapy Treatment Manual Techniques left posterior capsule hip stretch Type posterior capsule hip stretch Comments good tolerance and pt can feel a good release in the sacral region manual hip IR/ER in prone Reps/Duration x 10 reps each with end range stretch prone quad stretch Reps/Duration hold 2 min B manual iliopsoas stretch in supine Reps/Duration hold 2 min Comments able to tolerate today, no c/o ASIS pain or radicular symptoms PT-OP-R Modalities Start: 08/02/22 15:43 Freq: Status: Active Protocol: Document 08/16/22 15:17 [facility] (Rec: 08/16/22 16:18 [facility] [id number]) Ultrasound Therapy Treatment left lateral hip and ITB attachment Treatment Duration (minutes) 8 Patient Position Sidelying Coupling Medium Ultrasound Gel Applicator Size (cm2) 2 Mode Setting Continuous Duty Cycle 100% Intensity Setting (w/cm2) 1.5 PT-OP-T Assessment and Plan Start: 07/21/22 09:01 Freq: Status: Active Protocol: Document 09/13/22 13:45 [facility] (Rec: 09/13/22 16:42 [facility] [id number]) Physical Therapy Assessment Assessment Summary Assessment Lukas is doing better overall and is no longer experiencing the radicular symptoms he was having. His MRI does show significant disc bulges throughout. He was able to tolerate the addition of prone on elbows and prone thoracic extension Physical Therapy Plan Frequency and Duration Frequency of Treatment 2x/Week Duration of treatment (weeks) 12 Plan of Care Start Date 07/21/22 Plan of Care End Date 10/19/21 Therapeutic Interventions Therapeutic Interventions Home Exercise Program,Manual Therapy,Neuromuscular Re- education,Patient/Caregiver Education,Self-Care/Home Management,Therapeutic Exercises Modalities Cold Pack/Ice Massage Next Visit Focus/Plan Next Note Type Treatment Note Next Visit Plan work on core stabilization, ITB release, decompression of the left SI joint, SI joint stabilization, HS stretch and ITB stretch
--- NOTE | 2022-09-15 12:56 | PT.OTN ---
Current Diagnoses Pain in left hip (09/15/22) Pain in left leg (09/15/22) Pain in leg, unspecified (09/15/22) Physical Therapy Treatment Note PT-OP-A Visit Information Start: 07/21/22 09:01 Freq: Status: Active Protocol: Document 09/15/22 09:52 [facility] (Rec: 09/15/22 10:34 [facility] [id number]) Out-Patient Physical Therapy Visit Information Visit Information Visit Type Treatment Note Visit Note 09/12 Visit Start Time 09:50 Visit Stop Time 10:30 Total Visit Minutes 40 Visit Number 7 PT-OP-B Current Condition Start: 07/21/22 09:01 Freq: Status: Active Protocol: Document 07/21/22 09:49 [facility] (Rec: 07/21/22 10:38 [facility] [id number]) Current Condition History of Current Condition Onset Date February 2022 Current Complaints L anterior hip pain made worse with standing and walking History of Current Condition In February 2022 Lukas did a lift and felt a thunk in his left hip and or sacral region He now describes anterior hip pain on the ball and numbness that goes down the anterior leg to toe. Pain seems to be anterior in nature. Pain is worse with standing and walking and relieved with sitting Prior Treatments and Tests X-ray reports questionable erosion of the greater trochanter Treatment Goals Patient/Caregiver Goals Pts goals include decreasing pain and improving his function Prior Functional Status Baseline Function- ADL's Independent Baseline Function- Mobility Independent Current Functional Impairments (Reported) Functional Limitations- ADL's limited in activites around his home that require lifting Functional Limitations- Mobility/Gait pain with walking more than 2 blocks and moderate difficulty reported, pain with standing more than 1 hour Functional Limitations- Work/School limited in standing at his desk due to pain PT-OP-C Subjective Start: 07/21/22 09:01 Freq: Status: Active Protocol: Document 09/15/22 09:52 [facility] (Rec: 09/15/22 10:34 [facility] [id number]) OP-PT Subjective Patient Comments Patient Comments pt notes he did well with his new exercises but he did run out of his anti inflammatories . PT-OP-F Manual Assessment Start: 07/21/22 09:01 Freq: Status: Active Protocol: Document 07/21/22 09:45 [facility] (Rec: 07/21/22 19:24 [facility] [id number]) Manual Assessments Soft Tissue Assessment Soft Tissue Mobility Assessment left quadratus lumborum tightness and Left greater than Right paraspinal tightness Joint Mobility Assessment Joint Mobility Assessment pain in the left anterior hip with hip extension, hip extension also increases numbness no hard end feel or bony blocks of movement PT-OP-K Range of Motion Start: 07/21/22 09:01 Freq: Status: Active Protocol: Document 07/21/22 09:45 [facility] (Rec: 07/21/22 19:24 [facility] [id number]) Hip Goniometric Range of Motion Hip left Hip ROM WFL No Testing Position Supine Flexion w/Knee Flexed 110 Straight Leg Raise 50 External Rotation 35 Comments pain with hip extension but there is no limitations with hip extension PT-OP-M Strength Start: 07/21/22 09:01 Freq: Status: Active Protocol: Document 07/21/22 09:45 [facility] (Rec: 07/21/22 19:24 [facility] [id number]) Hip Strength Hip Manual Muscle Testing Left Flexion (L2) 4 Good Extension (S1) 3 Fair Abduction 3+ Fair+ External Rotation 4 Good Internal Rotation 4 Good Comments pain with active hip extension so no overpressure was performed PT-OP-Q Treatments Start: 07/21/22 09:01 Freq: Status: Active Protocol: Document 09/15/22 12:52 [facility] (Rec: 09/15/22 12:56 [facility] [id number]) Manual Therapy Treatment Soft Tissue Mobilization MFR left QL Body Location left QL Mobilization Type Myofascial Release Intensity/Depth Moderate Body Position Sidelying Comments manual release of the QL and downgliding of the pelvis to stretch the QL Manual Techniques manual hip IR/ER in prone Reps/Duration x 10 reps each with end range stretch prone manual hip ER stretch Reps/Duration 5 reps with end range stretch Comments good tolerance and no increase in pain symptoms sacral decompression technique Body Position Prone Comments MET for sacral counter nutation PT-OP-R Modalities Start: 08/02/22 15:43 Freq: Status: Active Protocol: Document 09/15/22 12:56 [facility] (Rec: 09/15/22 12:56 [facility] [id number]) Ultrasound Therapy Treatment left lateral hip and ITB attachment Treatment Duration (minutes) 8 Patient Position Sidelying Coupling Medium Ultrasound Gel Applicator Size (cm2) 2 Mode Setting Continuous Duty Cycle 100% Intensity Setting (w/cm2) 1.5 PT-OP-T Assessment and Plan Start: 07/21/22 09:01 Freq: Status: Active Protocol: Document 09/15/22 12:52 [facility] (Rec: 09/15/22 12:56 [facility] [id number]) Physical Therapy Assessment Assessment Summary Assessment Lukas tolerated the addition of prone on elbows and prone thoracic extension last visit. I did encourage him to try and get his anti inflammatory refilled as this does seem to be helping reduce his nerve symptoms as well. Good tolerance to manual work today Physical Therapy Plan Frequency and Duration Frequency of Treatment 2x/Week Duration of treatment (weeks) 12 Plan of Care Start Date 07/21/22 Plan of Care End Date 10/19/21 Therapeutic Interventions Therapeutic Interventions Home Exercise Program,Manual Therapy,Neuromuscular Re- education,Patient/Caregiver Education,Self-Care/Home Management,Therapeutic Exercises Modalities Cold Pack/Ice Massage Next Visit Focus/Plan Next Note Type Treatment Note Next Visit Plan work on core stabilization, ITB release, decompression of the left SI joint, SI joint stabilization, HS stretch and ITB stretch
--- NOTE | 2022-09-27 17:24 | PT.OTN ---
Current Diagnoses Pain in left hip (09/27/22) Pain in left leg (09/27/22) Pain in leg, unspecified (09/27/22) Physical Therapy Treatment Note PT-OP-A Visit Information Start: 07/21/22 09:01 Freq: Status: Active Protocol: Document 09/27/22 12:57 [facility] (Rec: 09/27/22 13:47 [facility] [id number]) Out-Patient Physical Therapy Visit Information Visit Information Visit Type Treatment Note Visit Note 3/6 insurance authorized visits Visit Start Time 13:00 Visit Stop Time 13:45 Total Visit Minutes 45 Visit Number 8 PT-OP-B Current Condition Start: 07/21/22 09:01 Freq: Status: Active Protocol: Document 07/21/22 09:49 [facility] (Rec: 07/21/22 10:38 [facility] [id number]) Current Condition History of Current Condition Onset Date February 2022 Current Complaints L anterior hip pain made worse with standing and walking History of Current Condition In February 2022 Lukas did a lift and felt a thunk in his left hip and or sacral region He now describes anterior hip pain on the ball and numbness that goes down the anterior leg to toe. Pain seems to be anterior in nature. Pain is worse with standing and walking and relieved with sitting Prior Treatments and Tests X-ray reports questionable erosion of the greater trochanter Treatment Goals Patient/Caregiver Goals Pts goals include decreasing pain and improving his function Prior Functional Status Baseline Function- ADL's Independent Baseline Function- Mobility Independent Current Functional Impairments (Reported) Functional Limitations- ADL's limited in activites around his home that require lifting Functional Limitations- Mobility/Gait pain with walking more than 2 blocks and moderate difficulty reported, pain with standing more than 1 hour Functional Limitations- Work/School limited in standing at his desk due to pain PT-OP-C Subjective Start: 07/21/22 09:01 Freq: Status: Active Protocol: Document 09/27/22 12:57 [facility] (Rec: 09/27/22 13:47 [facility] [id number]) OP-PT Subjective Patient Comments Patient Comments pt notes the super man exercises have been good for his low back and no return of his radicular symptoms. He does feel his left hip is tight today. He is feeling stiffness in his upper back from not exercising during this time. He did just get a membership to the gym Patient Reported Progress Improving PT-OP-F Manual Assessment Start: 07/21/22 09:01 Freq: Status: Active Protocol: Document 07/21/22 09:45 [facility] (Rec: 07/21/22 19:24 [facility] [id number]) Manual Assessments Soft Tissue Assessment Soft Tissue Mobility Assessment left quadratus lumborum tightness and Left greater than Right paraspinal tightness Joint Mobility Assessment Joint Mobility Assessment pain in the left anterior hip with hip extension, hip extension also increases numbness no hard end feel or bony blocks of movement PT-OP-K Range of Motion Start: 07/21/22 09:01 Freq: Status: Active Protocol: Document 07/21/22 09:45 [facility] (Rec: 07/21/22 19:24 [facility] [id number]) Hip Goniometric Range of Motion Hip left Hip ROM WFL No Testing Position Supine Flexion w/Knee Flexed 110 Straight Leg Raise 50 External Rotation 35 Comments pain with hip extension but there is no limitations with hip extension PT-OP-M Strength Start: 07/21/22 09:01 Freq: Status: Active Protocol: Document 07/21/22 09:45 [facility] (Rec: 07/21/22 19:24 [facility] [id number]) Hip Strength Hip Manual Muscle Testing Left Flexion (L2) 4 Good Extension (S1) 3 Fair Abduction 3+ Fair+ External Rotation 4 Good Internal Rotation 4 Good Comments pain with active hip extension so no overpressure was performed PT-OP-Q Treatments Start: 07/21/22 09:01 Freq: Status: Active Protocol: Document 09/27/22 17:20 [facility] (Rec: 09/27/22 17:23 [facility] [id number]) Therapeutic Exercises Supine Exercises iliopsoas stretch in gayle test position Reps/Minutes hold 1-2 min single knee to chest stretch Reps/Minutes hold 1-2 minutes supine hamstring stretch Side bilateral Equipment Used strap Reps/Minutes hold 1-2 min Prone Exercises prone thoracic extension Reps/Minutes x 10 reps Comments arms at sides with shoulder ER prone on elbows Reps/Minutes x 10 reps holding x 5 seconds Manual Therapy Treatment Soft Tissue Mobilization lumbar and thoracic paraspinals Body Position Prone MFR proximal ITB Body Location proximal ITB attachment left hip Mobilization Type Myofascial Release Intensity/Depth Moderate Body Position Sidelying Comments right sidelying with pillow between knees Manual Techniques left posterior capsule hip stretch Type posterior capsule hip stretch Comments good tolerance and pt can feel a good release in the sacral region manual hip IR/ER in prone Reps/Duration x 10 reps each with end range stretch prone quad stretch Reps/Duration hold 2 min B prone manual hip ER stretch Reps/Duration 5 reps with end range stretch Comments good tolerance and no increase in pain symptoms manual iliopsoas stretch in supine Reps/Duration hold 2 min Comments able to tolerate today, no c/o ASIS pain or radicular symptoms PT-OP-R Modalities Start: 08/02/22 15:43 Freq: Status: Active Protocol: Document 09/15/22 12:56 [facility] (Rec: 09/15/22 12:56 [facility] [id number]) Ultrasound Therapy Treatment left lateral hip and ITB attachment Treatment Duration (minutes) 8 Patient Position Sidelying Coupling Medium Ultrasound Gel Applicator Size (cm2) 2 Mode Setting Continuous Duty Cycle 100% Intensity Setting (w/cm2) 1.5 PT-OP-T Assessment and Plan Start: 07/21/22 09:01 Freq: Status: Active Protocol: Document 09/27/22 17:20 [facility] (Rec: 09/27/22 17:23 [facility] [id number]) Physical Therapy Assessment Assessment Summary Assessment Lukas is tolerating lumbar extension exercises well. I added in bridges today and encouraged him to continue with his hip flexor stretches. He hasn't returned to standing yet at work as he had been getting pain with that. He will try out gentle cardio at the gym this week Physical Therapy Plan Frequency and Duration Frequency of Treatment 2x/Week Duration of treatment (weeks) 12 Plan of Care Start Date 07/21/22 Plan of Care End Date 10/19/21 Therapeutic Interventions Therapeutic Interventions Home Exercise Program,Manual Therapy,Neuromuscular Re- education,Patient/Caregiver Education,Self-Care/Home Management,Therapeutic Exercises Modalities Cold Pack/Ice Massage Next Visit Focus/Plan Next Note Type Treatment Note Next Visit Plan work on core stabilization, ITB release, decompression of the left SI joint, SI joint stabilization, HS stretch and ITB stretch
--- NOTE | 2022-09-29 17:26 | PT.OTN ---
Current Diagnoses Pain in left hip (09/29/22) Pain in left leg (09/29/22) Pain in leg, unspecified (09/29/22) Physical Therapy Treatment Note PT-OP-A Visit Information Start: 07/21/22 09:01 Freq: Status: Active Protocol: Document 09/29/22 13:48 [facility] (Rec: 09/29/22 14:31 [facility] [id number]) Out-Patient Physical Therapy Visit Information Visit Information Visit Type Treatment Note Visit Note 11/10 Visit Start Time 13:45 Visit Stop Time 14:30 Total Visit Minutes 45 Visit Number 9 PT-OP-B Current Condition Start: 07/21/22 09:01 Freq: Status: Active Protocol: Document 07/21/22 09:49 [facility] (Rec: 07/21/22 10:38 [facility] [id number]) Current Condition History of Current Condition Onset Date February 2022 Current Complaints L anterior hip pain made worse with standing and walking History of Current Condition In February 2022 Lukas did a lift and felt a thunk in his left hip and or sacral region He now describes anterior hip pain on the ball and numbness that goes down the anterior leg to toe. Pain seems to be anterior in nature. Pain is worse with standing and walking and relieved with sitting Prior Treatments and Tests X-ray reports questionable erosion of the greater trochanter Treatment Goals Patient/Caregiver Goals Pts goals include decreasing pain and improving his function Prior Functional Status Baseline Function- ADL's Independent Baseline Function- Mobility Independent Current Functional Impairments (Reported) Functional Limitations- ADL's limited in activites around his home that require lifting Functional Limitations- Mobility/Gait pain with walking more than 2 blocks and moderate difficulty reported, pain with standing more than 1 hour Functional Limitations- Work/School limited in standing at his desk due to pain PT-OP-C Subjective Start: 07/21/22 09:01 Freq: Status: Active Protocol: Document 09/29/22 13:48 [facility] (Rec: 09/29/22 17:21 [facility] [id number]) OP-PT Subjective Patient Comments Patient Comments Lukas reports he is feeling more of the neck tightness and discomfort, left anterior hip feels tight He has not started at the gym yet PT-OP-F Manual Assessment Start: 07/21/22 09:01 Freq: Status: Active Protocol: Document 07/21/22 09:45 [facility] (Rec: 07/21/22 19:24 [facility] [id number]) Manual Assessments Soft Tissue Assessment Soft Tissue Mobility Assessment left quadratus lumborum tightness and Left greater than Right paraspinal tightness Joint Mobility Assessment Joint Mobility Assessment pain in the left anterior hip with hip extension, hip extension also increases numbness no hard end feel or bony blocks of movement PT-OP-K Range of Motion Start: 07/21/22 09:01 Freq: Status: Active Protocol: Document 07/21/22 09:45 [facility] (Rec: 07/21/22 19:24 [facility] [id number]) Hip Goniometric Range of Motion Hip left Hip ROM WFL No Testing Position Supine Flexion w/Knee Flexed 110 Straight Leg Raise 50 External Rotation 35 Comments pain with hip extension but there is no limitations with hip extension PT-OP-M Strength Start: 07/21/22 09:01 Freq: Status: Active Protocol: Document 07/21/22 09:45 [facility] (Rec: 07/21/22 19:24 [facility] [id number]) Hip Strength Hip Manual Muscle Testing Left Flexion (L2) 4 Good Extension (S1) 3 Fair Abduction 3+ Fair+ External Rotation 4 Good Internal Rotation 4 Good Comments pain with active hip extension so no overpressure was performed PT-OP-Q Treatments Start: 07/21/22 09:01 Freq: Status: Active Protocol: Document 09/29/22 13:48 [facility] (Rec: 09/29/22 14:31 [facility] [id number]) Gym Equipment Cable Column (Body Solid) Rows Details 50# Reps/Time 3 x 10 reps Lat Pull Down Details 50# Reps/Time 3 x 10 reps Therapeutic Exercises Supine Exercises iliopsoas stretch in gayle test position Reps/Minutes hold 1-2 min single knee to chest stretch Reps/Minutes hold 1-2 minutes Manual Therapy Treatment Soft Tissue Mobilization manual scalene stretches Body Location scalenes Body Position Supine lumbar and thoracic paraspinals Body Position Prone Manual Techniques left posterior capsule hip stretch Type posterior capsule hip stretch Comments good tolerance and pt can feel a good release in the sacral region manual hip IR/ER in prone Reps/Duration x 10 reps each with end range stretch PT-OP-R Modalities Start: 08/02/22 15:43 Freq: Status: Active Protocol: Document 09/15/22 12:56 [facility] (Rec: 09/15/22 12:56 [facility] [id number]) Ultrasound Therapy Treatment left lateral hip and ITB attachment Treatment Duration (minutes) 8 Patient Position Sidelying Coupling Medium Ultrasound Gel Applicator Size (cm2) 2 Mode Setting Continuous Duty Cycle 100% Intensity Setting (w/cm2) 1.5 PT-OP-T Assessment and Plan Start: 07/21/22 09:01 Freq: Status: Active Protocol: Document 09/29/22 13:35 [facility] (Rec: 09/29/22 17:26 [facility] [id number]) Physical Therapy Assessment Assessment Summary Assessment Overall Lukas is improving, no radicular symptoms and decreased pain. I encourged him to start trying to use the sit-stand desk at work and to try out the cardio machines at the gym. Added back in lat pull downs and seated rows for thoracic mobility Physical Therapy Plan Frequency and Duration Frequency of Treatment 2x/Week Duration of treatment (weeks) 12 Plan of Care Start Date 07/21/22 Plan of Care End Date 10/19/21 Therapeutic Interventions Therapeutic Interventions Home Exercise Program,Manual Therapy,Neuromuscular Re- education,Patient/Caregiver Education,Self-Care/Home Management,Therapeutic Exercises Modalities Cold Pack/Ice Massage Next Visit Focus/Plan Next Note Type Treatment Note Next Visit Plan work on core stabilization, ITB release, decompression of the left SI joint, SI joint stabilization, HS stretch and ITB stretch
--- NOTE | 2022-10-04 13:59 | PT.OTN ---
Current Diagnoses Pain in left hip (10/04/22) Pain in left leg (10/04/22) Pain in leg, unspecified (10/04/22) Physical Therapy Treatment Note PT-OP-A Visit Information Start: 07/21/22 09:01 Freq: Status: Active Protocol: Document 10/04/22 13:01 [facility] (Rec: 10/04/22 13:58 [facility] [id number]) Out-Patient Physical Therapy Visit Information Visit Information Visit Type Treatment Note Visit Note 6 Visit Start Time 13:01 Visit Stop Time 13:45 Total Visit Minutes 44 Visit Number 10 PT-OP-B Current Condition Start: 07/21/22 09:01 Freq: Status: Active Protocol: Document 07/21/22 09:49 [facility] (Rec: 07/21/22 10:38 [facility] [id number]) Current Condition History of Current Condition Onset Date February 2022 Current Complaints L anterior hip pain made worse with standing and walking History of Current Condition In February 2022 Lukas did a lift and felt a thunk in his left hip and or sacral region He now describes anterior hip pain on the ball and numbness that goes down the anterior leg to toe. Pain seems to be anterior in nature. Pain is worse with standing and walking and relieved with sitting Prior Treatments and Tests X-ray reports questionable erosion of the greater trochanter Treatment Goals Patient/Caregiver Goals Pts goals include decreasing pain and improving his function Prior Functional Status Baseline Function- ADL's Independent Baseline Function- Mobility Independent Current Functional Impairments (Reported) Functional Limitations- ADL's limited in activites around his home that require lifting Functional Limitations- Mobility/Gait pain with walking more than 2 blocks and moderate difficulty reported, pain with standing more than 1 hour Functional Limitations- Work/School limited in standing at his desk due to pain PT-OP-C Subjective Start: 07/21/22 09:01 Freq: Status: Active Protocol: Document 10/04/22 13:01 [facility] (Rec: 10/04/22 13:58 [facility] [id number]) OP-PT Subjective Patient Comments Patient Comments pt notes he is ready to start standing at his desk. He hasn 't tried this yet but feels ready to try. His left anterior hip feels tight today and he has some soreness. No complaints of radicular pain PT-OP-F Manual Assessment Start: 07/21/22 09:01 Freq: Status: Active Protocol: Document 07/21/22 09:45 [facility] (Rec: 07/21/22 19:24 [facility] [id number]) Manual Assessments Soft Tissue Assessment Soft Tissue Mobility Assessment left quadratus lumborum tightness and Left greater than Right paraspinal tightness Joint Mobility Assessment Joint Mobility Assessment pain in the left anterior hip with hip extension, hip extension also increases numbness no hard end feel or bony blocks of movement PT-OP-K Range of Motion Start: 07/21/22 09:01 Freq: Status: Active Protocol: Document 07/21/22 09:45 [facility] (Rec: 07/21/22 19:24 [facility] [id number]) Hip Goniometric Range of Motion Hip left Hip ROM WFL No Testing Position Supine Flexion w/Knee Flexed 110 Straight Leg Raise 50 External Rotation 35 Comments pain with hip extension but there is no limitations with hip extension PT-OP-M Strength Start: 07/21/22 09:01 Freq: Status: Active Protocol: Document 07/21/22 09:45 [facility] (Rec: 07/21/22 19:24 [facility] [id number]) Hip Strength Hip Manual Muscle Testing Left Flexion (L2) 4 Good Extension (S1) 3 Fair Abduction 3+ Fair+ External Rotation 4 Good Internal Rotation 4 Good Comments pain with active hip extension so no overpressure was performed PT-OP-Q Treatments Start: 07/21/22 09:01 Freq: Status: Active Protocol: Document 10/04/22 13:01 [facility] (Rec: 10/04/22 13:58 [facility] [id number]) Gym Equipment Cable Column (Body Solid) Rows Details 50# Reps/Time 3 x 10 reps Lat Pull Down Details 50# Reps/Time 3 x 10 reps Manual Therapy Treatment Soft Tissue Mobilization lumbar and thoracic paraspinals Body Position Prone Manual Techniques left posterior capsule hip stretch Type posterior capsule hip stretch Comments good tolerance and pt can feel a good release in the sacral region manual hip IR/ER in prone Reps/Duration x 10 reps each with end range stretch prone quad stretch Reps/Duration hold 2 min B prone manual hip ER stretch Reps/Duration 5 reps with end range stretch Comments good tolerance and no increase in pain symptoms manual iliopsoas stretch in supine Reps/Duration hold 2 min Comments able to tolerate today, no c/o ASIS pain or radicular symptoms PT-OP-R Modalities Start: 08/02/22 15:43 Freq: Status: Active Protocol: Document 09/15/22 12:56 [facility] (Rec: 09/15/22 12:56 [facility] [id number]) Ultrasound Therapy Treatment left lateral hip and ITB attachment Treatment Duration (minutes) 8 Patient Position Sidelying Coupling Medium Ultrasound Gel Applicator Size (cm2) 2 Mode Setting Continuous Duty Cycle 100% Intensity Setting (w/cm2) 1.5 PT-OP-T Assessment and Plan Start: 07/21/22 09:01 Freq: Status: Active Protocol: Document 10/04/22 13:01 [facility] (Rec: 10/04/22 13:58 [facility] [id number]) Physical Therapy Assessment Assessment Summary Assessment Overall Lukas continues to make progress. He is not experiencing radicular symptoms but does still c/o tightness and intermittent pain in the left anterior hip . He has a HEP he is working on and has rejoined the gym. He is feeling his neck pain return as well as left plantar fascitis as he has not been active so I have been working to include exercises for thoracic mobility and neck stretches and he is tolerating these well. Lukas would benefit from continued PT working towards his goals of being able to stand for longer durations and walk without pain Physical Therapy Plan Frequency and Duration Frequency of Treatment 2x/Week Duration of treatment (weeks) 12 Plan of Care Start Date 10/04/22 Plan of Care End Date 12/27/22 Therapeutic Interventions Therapeutic Interventions Home Exercise Program,Manual Therapy,Neuromuscular Re- education,Patient/Caregiver Education,Self-Care/Home Management,Therapeutic Exercises Modalities Cold Pack/Ice Massage Next Visit Focus/Plan Next Note Type Treatment Note Next Visit Plan work on core stabilization, ITB release, decompression of the left SI joint, SI joint stabilization, HS stretch and ITB stretch
--- NOTE | 2022-10-04 14:01 | PT.OPPOC ---
Physical, Occupational & Speech Therapy At [facility] Current Diagnoses Pain in left hip (10/04/22) Pain in left leg (10/04/22) Pain in leg, unspecified (10/04/22) Visit Care Team Role Provider Type Tripp Joseph MD Attending Provider Physician Family Provider Primary Care Provider Referring Provider Specialty: Family Practice Address: [address] [place] [address] [place], [place], [facility] Email: [email or web address] Plan Of Care PT-OP-T Assessment and Plan Start: 07/21/22 09:01 Freq: Status: Active Protocol: Document 10/04/22 13:01 [facility] (Rec: 10/04/22 13:58 [facility] [id number]) Physical Therapy Assessment Goals 3 Impairment Gluteus medius weakness B with positive hip drop with SLS Short Term Goal (STG) Junior is able to tolerate gentle gluteus medius stabilization exercises Good progress STG Duration 4 weeks [facility] Goal (LTG) Junior is able to perform a single leg stance without a hip drop Goal met LTG Duration 12 weeks 2 Impairment Pain rated 3/10 with intermittent radiating pain and numbness down the anterior medial hip to the big toe [facility] Goal (LTG) Lukas reports a overall reduction of hip pain and is no longer experiencing any radiating symptoms Lukas reports he is no longer experiencing radicular symptoms LTG Duration 12 weeks 1 Impairment Left sided hip pain that is worse in standing and with any hip extension limiting walking distance to 2 blocks [employer]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 Walking distance is increased to 1 mile or better Good progress, Lukas has not yet assessed his walking distance that he can tolerate LTG Duration 12 weeks Assessment Summary Assessment Overall Lukas continues to make progress. He is not experiencing radicular symptoms but does still c/o tightness and intermittent pain in the left anterior hip . He has a HEP he is working on and has rejoined the gym. He is feeling his neck pain return as well as left plantar fascitis as he has not been active so I have been working to include exercises for thoracic mobility and neck stretches and he is tolerating these well. Lukas would benefit from continued PT working towards his goals of being able to stand for longer durations and walk without pain Physical Therapy Plan Frequency and Duration Frequency of Treatment 2x/Week Duration of treatment (weeks) 12 Plan of Care Start Date 10/04/22 Plan of Care End Date 12/27/22 Therapeutic Interventions Therapeutic Interventions Home Exercise Program,Manual Therapy,Neuromuscular Re- education,Patient/Caregiver Education,Self-Care/Home Management,Therapeutic Exercises Modalities Cold Pack/Ice Massage Next Visit Focus/Plan Next Note Type Treatment Note Next Visit Plan work on core stabilization, ITB release, decompression of the left SI joint, SI joint stabilization, HS stretch and ITB stretch Plan of Care Dates Plan of Care Start Date 10/04/22 Plan of Care End Date 12/27/22 Electronically Signed by: Judith Lebron, PT 10/04/22 [id number] If you are in agreement with this Plan of Care, please return a signed and dated copy. I have reviewed this Plan of Care and certify that the skilled therapy services above are required to meet the patient?s needs. Physician Signature Date Printed Name and Credentials Clinical Instructor Signature Printed Name and Credentials
--- NOTE | 2022-10-04 14:02 | PT.OPPN ---
Current Diagnoses Pain in left hip (10/04/22) Pain in left leg (10/04/22) Pain in leg, unspecified (10/04/22) Physical Therapy Progress Note PT-OP-A Visit Information Start: 07/21/22 09:01 Freq: Status: Active Protocol: Document 10/04/22 13:01 [facility] (Rec: 10/04/22 13:58 [facility] [id number]) Out-Patient Physical Therapy Visit Information Visit Information Visit Type Treatment Note Visit Note 6 Visit Start Time 13:01 Visit Stop Time 13:45 Total Visit Minutes 44 Visit Number 10 PT-OP-B Current Condition Start: 07/21/22 09:01 Freq: Status: Active Protocol: Document 07/21/22 09:49 [facility] (Rec: 07/21/22 10:38 [facility] [id number]) Current Condition History of Current Condition Onset Date February 2022 Current Complaints L anterior hip pain made worse with standing and walking History of Current Condition In February 2022 Lukas did a lift and felt a thunk in his left hip and or sacral region He now describes anterior hip pain on the ball and numbness that goes down the anterior leg to toe. Pain seems to be anterior in nature. Pain is worse with standing and walking and relieved with sitting Prior Treatments and Tests X-ray reports questionable erosion of the greater trochanter Treatment Goals Patient/Caregiver Goals Pts goals include decreasing pain and improving his function Prior Functional Status Baseline Function- ADL's Independent Baseline Function- Mobility Independent Current Functional Impairments (Reported) Functional Limitations- ADL's limited in activites around his home that require lifting Functional Limitations- Mobility/Gait pain with walking more than 2 blocks and moderate difficulty reported, pain with standing more than 1 hour Functional Limitations- Work/School limited in standing at his desk due to pain PT-OP-C Subjective Start: 07/21/22 09:01 Freq: Status: Active Protocol: Document 10/04/22 13:01 [facility] (Rec: 10/04/22 13:58 [facility] [id number]) OP-PT Subjective Patient Comments Patient Comments pt notes he is ready to start standing at his desk. He hasn 't tried this yet but feels ready to try. His left anterior hip feels tight today and he has some soreness. No complaints of radicular pain PT-OP-F Manual Assessment Start: 07/21/22 09:01 Freq: Status: Active Protocol: Document 07/21/22 09:45 [facility] (Rec: 07/21/22 19:24 [facility] [id number]) Manual Assessments Soft Tissue Assessment Soft Tissue Mobility Assessment left quadratus lumborum tightness and Left greater than Right paraspinal tightness Joint Mobility Assessment Joint Mobility Assessment pain in the left anterior hip with hip extension, hip extension also increases numbness no hard end feel or bony blocks of movement PT-OP-K Range of Motion Start: 07/21/22 09:01 Freq: Status: Active Protocol: Document 07/21/22 09:45 [facility] (Rec: 07/21/22 19:24 [facility] [id number]) Hip Goniometric Range of Motion Hip Measured in Degrees left Hip ROM WFL No Testing Position Supine Flexion w/Knee Flexed 110 Straight Leg Raise 50 External Rotation 35 Comments pain with hip extension but there is no limitations with hip extension PT-OP-M Strength Start: 07/21/22 09:01 Freq: Status: Active Protocol: Document 07/21/22 09:45 [facility] (Rec: 07/21/22 19:24 [facility] [id number]) Hip Strength Hip Manual Muscle Testing Left Flexion (L2) 4 Good Extension (S1) 3 Fair Abduction 3+ Fair+ External Rotation 4 Good Internal Rotation 4 Good Comments pain with active hip extension so no overpressure was performed PT-OP-T Assessment and Plan Start: 07/21/22 09:01 Freq: Status: Active Protocol: Document 10/04/22 13:01 [facility] (Rec: 10/04/22 13:58 [facility] [id number]) Physical Therapy Assessment Goals 3 Impairment Gluteus medius weakness B with positive hip drop with SLS Short Term Goal (STG) Junior is able to tolerate gentle gluteus medius stabilization exercises Good progress STG Duration 4 weeks Domestic Violence Counselor Goal (LTG) Junior is able to perform a single leg stance without a hip drop Goal met LTG Duration 12 weeks 2 Impairment Pain rated 3/10 with intermittent radiating pain and numbness down the anterior medial hip to the big toe Halfway Goal (LTG) Lukas reports a overall reduction of hip pain and is no longer experiencing any radiating symptoms Lukas reports he is no longer experiencing radicular symptoms LTG Duration 12 weeks 1 Impairment Left sided hip pain that is worse in standing and with any hip extension limiting walking distance to 2 blocks Halfway Goal (LTG) Junior reports a overall reduction in pain, pain is reduced with standing activities and his tolerance for standing is increased to 1 -2 hours. Walking distance is increased to 1 mile or better Good progress, Lukas has not yet assessed his walking distance that he can tolerate LTG Duration 12 weeks Assessment Summary Assessment Overall Lukas continues to make progress. He is not experiencing radicular symptoms but does still c/o tightness and intermittent pain in the left anterior hip . He has a HEP he is working on and has rejoined the gym. He is feeling his neck pain return as well as left plantar fascitis as he has not been active so I have been working to include exercises for thoracic mobility and neck stretches and he is tolerating these well. Lukas would benefit from continued PT working towards his goals of being able to stand for longer durations and walk without pain Physical Therapy Plan Frequency and Duration Frequency of Treatment 2x/Week Duration of treatment (weeks) 12 Plan of Care Start Date 10/04/22 Plan of Care End Date 12/27/22 Therapeutic Interventions Therapeutic Interventions Home Exercise Program,Manual Therapy,Neuromuscular Re- education,Patient/Caregiver Education,Self-Care/Home Management,Therapeutic Exercises Modalities Cold Pack/Ice Massage Next Visit Focus/Plan Next Note Type Treatment Note Next Visit Plan work on core stabilization, ITB release, decompression of the left SI joint, SI joint stabilization, HS stretch and ITB stretch
--- NOTE | 2022-10-06 17:32 | PT.OTN ---
Current Diagnoses Pain in left hip (10/06/22) Pain in left leg (10/06/22) Pain in leg, unspecified (10/06/22) Physical Therapy Treatment Note PT-OP-A Visit Information Start: 07/21/22 09:01 Freq: Status: Active Protocol: Document 10/06/22 13:45 [facility] (Rec: 10/06/22 14:33 [facility] [id number]) Out-Patient Physical Therapy Visit Information Visit Information Visit Type Treatment Note Visit Note 01/10 Visit Start Time 13:45 Visit Stop Time 14:30 Total Visit Minutes 45 Visit Number 11 PT-OP-B Current Condition Start: 07/21/22 09:01 Freq: Status: Active Protocol: Document 07/21/22 09:49 [facility] (Rec: 07/21/22 10:38 [facility] [id number]) Current Condition History of Current Condition Onset Date February 2022 Current Complaints L anterior hip pain made worse with standing and walking History of Current Condition In February 2022 Lukas did a lift and felt a thunk in his left hip and or sacral region He now describes anterior hip pain on the ball and numbness that goes down the anterior leg to toe. Pain seems to be anterior in nature. Pain is worse with standing and walking and relieved with sitting Prior Treatments and Tests X-ray reports questionable erosion of the greater trochanter Treatment Goals Patient/Caregiver Goals Pts goals include decreasing pain and improving his function Prior Functional Status Baseline Function- ADL's Independent Baseline Function- Mobility Independent Current Functional Impairments (Reported) Functional Limitations- ADL's limited in activites around his home that require lifting Functional Limitations- Mobility/Gait pain with walking more than 2 blocks and moderate difficulty reported, pain with standing more than 1 hour Functional Limitations- Work/School limited in standing at his desk due to pain PT-OP-C Subjective Start: 07/21/22 09:01 Freq: Status: Active Protocol: Document 10/06/22 13:45 [facility] (Rec: 10/06/22 14:33 [facility] [id number]) OP-PT Subjective Patient Comments Patient Comments pt reports he feels 80 percent better overall in his hips and his back. He would like to obtain a new referral for his heel pain. Patient Reported Progress Improving PT-OP-F Manual Assessment Start: 07/21/22 09:01 Freq: Status: Active Protocol: Document 07/21/22 09:45 [facility] (Rec: 07/21/22 19:24 [facility] [id number]) Manual Assessments Soft Tissue Assessment Soft Tissue Mobility Assessment left quadratus lumborum tightness and Left greater than Right paraspinal tightness Joint Mobility Assessment Joint Mobility Assessment pain in the left anterior hip with hip extension, hip extension also increases numbness no hard end feel or bony blocks of movement PT-OP-K Range of Motion Start: 07/21/22 09:01 Freq: Status: Active Protocol: Document 07/21/22 09:45 [facility] (Rec: 07/21/22 19:24 [facility] [id number]) Hip Goniometric Range of Motion Hip left Hip ROM WFL No Testing Position Supine Flexion w/Knee Flexed 110 Straight Leg Raise 50 External Rotation 35 Comments pain with hip extension but there is no limitations with hip extension PT-OP-M Strength Start: 07/21/22 09:01 Freq: Status: Active Protocol: Document 07/21/22 09:45 [facility] (Rec: 07/21/22 19:24 [facility] [id number]) Hip Strength Hip Manual Muscle Testing Left Flexion (L2) 4 Good Extension (S1) 3 Fair Abduction 3+ Fair+ External Rotation 4 Good Internal Rotation 4 Good Comments pain with active hip extension so no overpressure was performed PT-OP-Q Treatments Start: 07/21/22 09:01 Freq: Status: Active Protocol: Document 10/06/22 13:45 [facility] (Rec: 10/06/22 17:31 [facility] [id number]) Gym Equipment Cable Column (Body Solid) Rows Details 50# Reps/Time 3 x 10 reps Lat Pull Down Details 50# Reps/Time 3 x 10 reps Manual Therapy Treatment Soft Tissue Mobilization lumbar and thoracic paraspinals Body Position Prone MFR left QL Body Location left QL Mobilization Type Myofascial Release Intensity/Depth Moderate Body Position Sidelying Comments manual release of the QL and downgliding of the pelvis to stretch the QL Manual Techniques left posterior capsule hip stretch Type posterior capsule hip stretch Comments good tolerance and pt can feel a good release in the sacral region manual hip IR/ER in prone Reps/Duration x 10 reps each with end range stretch prone quad stretch Reps/Duration hold 2 min B manual iliopsoas stretch in supine Reps/Duration hold 2 min Comments able to tolerate today, no c/o ASIS pain or radicular symptoms PT-OP-R Modalities Start: 12/27/22 15:43 Freq: Status: Active Protocol: Document 09/15/22 12:56 [facility] (Rec: 09/15/22 12:56 [facility] [id number]) Ultrasound Therapy Treatment left lateral hip and ITB attachment Treatment Duration (minutes) 8 Patient Position Sidelying Coupling Medium Ultrasound Gel Applicator Size (cm2) 2 Mode Setting Continuous Duty Cycle 100% Intensity Setting (w/cm2) 1.5 PT-OP-T Assessment and Plan Start: 07/21/22 09:01 Freq: Status: Active Protocol: Document 10/06/22 13:45 [facility] (Rec: 10/06/22 14:33 [facility] [id number]) Physical Therapy Assessment Assessment Summary Assessment At this point Lukas feels he is 80 percent better with his hip and low back, he feels independent with is HEP now and is workign on stretches at home. He is having pain with standing now due to the newer onset of heel pain on the left side. A xray was taken today and does show a bone spur on the left heel. I have given him stretches to do for home but he would like to obtain a referral for PT for his heel. He will be discharged to a [facility] at this time for his hip and back Physical Therapy Plan Discharge Physical Therapy Discharge Reasons No Longer Attending PT Discharge Comments Pt has reached the end of his PT benefits and he would like to focus on his neck and left sided heel pain.
--- NOTE | 2022-10-06 17:33 | PT.OPDS ---
Current Diagnoses Pain in left hip (10/06/22) Pain in left leg (10/06/22) Pain in leg, unspecified (10/06/22) Visit Care Team Role Provider Type Tripp Joseph MD Attending Provider Physician Family Provider Primary Care Provider Referring Provider Specialty: Family Practice Address: [address] [place] [address], [facility] [place], [address] Email: [email or web address] Visit Number Visit Number 11 Discharge Summary PT-OP-B Current Condition Start: 07/21/22 09:01 Freq: Status: Active Protocol: Document 07/21/22 09:49 [facility] (Rec: 07/21/22 10:38 [facility] [id number]) Current Condition History of Current Condition Onset Date February 2022 Current Complaints L anterior hip pain made worse with standing and walking History of Current Condition In February 2022 Lukas did a lift and felt a thunk in his left hip and or sacral region He now describes anterior hip pain on the ball and numbness that goes down the anterior leg to toe. Pain seems to be anterior in nature. Pain is worse with standing and walking and relieved with sitting Prior Treatments and Tests X-ray reports questionable erosion of the greater trochanter Treatment Goals Patient/Caregiver Goals Pts goals include decreasing pain and improving his function Prior Functional Status Baseline Function- ADL's Independent Baseline Function- Mobility Independent Current Functional Impairments (Reported) Functional Limitations- ADL's limited in activites around his home that require lifting Functional Limitations- Mobility/Gait pain with walking more than 2 blocks and moderate difficulty reported, pain with standing more than 1 hour Functional Limitations- Work/School limited in standing at his desk due to pain PT-OP-C Subjective Start: 07/21/22 09:01 Freq: Status: Active Protocol: Document 10/06/22 13:45 [facility] (Rec: 10/06/22 14:33 [facility] [id number]) OP-PT Subjective Patient Comments Patient Comments pt reports he feels 80 percent better overall in his hips and his back. He would like to obtain a new referral for his heel pain. Patient Reported Progress Improving PT-OP-F Manual Assessment Start: 07/21/22 09:01 Freq: Status: Active Protocol: Document 07/21/22 09:45 [facility] (Rec: 07/21/22 19:24 [facility] [id number]) Manual Assessments Soft Tissue Assessment Soft Tissue Mobility Assessment left quadratus lumborum tightness and Left greater than Right paraspinal tightness Joint Mobility Assessment Joint Mobility Assessment pain in the left anterior hip with hip extension, hip extension also increases numbness no hard end feel or bony blocks of movement PT-OP-K Range of Motion Start: 07/21/22 09:01 Freq: Status: Active Protocol: Document 07/21/22 09:45 [facility] (Rec: 07/21/22 19:24 [facility] [id number]) Hip Goniometric Range of Motion Hip left Hip ROM WFL No Testing Position Supine Flexion w/Knee Flexed 110 Straight Leg Raise 50 External Rotation 35 Comments pain with hip extension but there is no limitations with hip extension PT-OP-M Strength Start: 07/21/22 09:01 Freq: Status: Active Protocol: Document 07/21/22 09:45 [facility] (Rec: 07/21/22 19:24 [facility] [id number]) Hip Strength Hip Manual Muscle Testing Left Flexion (L2) 4 Good Extension (S1) 3 Fair Abduction 3+ Fair+ External Rotation 4 Good Internal Rotation 4 Good Comments pain with active hip extension so no overpressure was performed PT-OP-T Assessment and Plan Start: 07/21/22 09:01 Freq: Status: Active Protocol: Document 10/06/22 13:45 [facility] (Rec: 10/06/22 14:33 [facility] [id number]) Physical Therapy Assessment Goals 3 Impairment Gluteus medius weakness B with positive hip drop with SLS Short Term Goal (STG) Junior is able to tolerate gentle gluteus medius stabilization exercises Good progress STG Duration 4 weeks Labor Employment Associate Goal (LTG) Junior is able to perform a single leg stance without a hip drop Goal met LTG Duration 12 weeks 2 Impairment Pain rated 3/10 with intermittent radiating pain and numbness down the anterior medial hip to the big toe Labor Employment Associate Goal (LTG) Lukas reports a overall reduction of hip pain and is no longer experiencing any radiating symptoms Lukas reports he is no longer experiencing radicular symptoms LTG Duration 12 weeks 1 Impairment Left sided hip pain that is worse in standing and with any hip extension limiting walking distance to 2 blocks Labor Employment Associate Goal (LTG) Junior reports a overall reduction in pain, pain is reduced with standing activities and his tolerance for standing is increased to 1 -2 hours. Walking distance is increased to 1 mile or better Good progress, Lukas has not yet assessed his walking distance that he can tolerate LTG Duration 12 weeks Assessment Summary Assessment At this point Lukas feels he is 80 percent better with his hip and low back, he feels independent with is HEP now and is workign on stretches at home. He is having pain with standing now due to the newer onset of heel pain on the left side. A xray was taken today and does show a bone spur on the left heel. I have given him stretches to do for home but he would like to obtain a referral for PT for his heel. He will be discharged to a [facility] at this time for his hip and back Physical Therapy Plan Discharge Physical Therapy Discharge Reasons No Longer Attending PT Discharge Comments Pt has reached the end of his PT benefits and he would like to focus on his neck and left sided heel pain.
== END 2022-10-07 14:30 ==
LOC: PHYS 13:45
PROVIDERS: Family Provider Family Medicine; PCP Family Medicine; Referring Provider Family Medicine; Visit Provider Family Medicine
DX: M79.605 Pain in left leg (principal); M25.552 Pain in left hip; M79.606 Pain in leg, unspecified
CPT/HCPCS: 97035; 97110; 97140; 97161

== ENCOUNTER → 2022-10-10 11:14 | Outpatient (RCR) | payer OTHER, SELFPAY ==
--- NOTE | 2020-08-31 17:39 | PT.OIE ---
Current Diagnoses Cervicalgia (08/26/20) Visit Care Team Role Provider Type Tripp Joseph MD Attending Provider Physician Family Provider Primary Care Provider Referring Provider Specialty: Family Practice Address: [address] [place] [address], [facility], [place], [place], [facility] Email: [email or web address] Physical Therapy Initial Evaluation PT-OP-A Visit Information Start: 08/26/20 09:45 Freq: Status: Active Protocol: Document 08/26/20 10:30 [facility] (Rec: 08/26/20 10:38 [facility] [id number]) Out-Patient Physical Therapy Visit Information Visit Information Visit Type Initial Evaluation Visit Start Time 10:30 Visit Stop Time 11:15 Total Visit Minutes 45 Visit Number 1 Evaluation Information Evaluation Date 08/26/20 PT-OP-B Current Condition Start: 08/26/20 09:45 Freq: Status: Active Protocol: Document 08/26/20 10:30 [facility] (Rec: 08/26/20 10:38 [facility] [id number]) Current Condition History of Current Condition Onset Date it has been a year since his neck started bothering him again. Current Complaints c/o muscular tightness in the neck and flexion postures increase pain History of Current Condition October of 2016 that he had his cervical discectomy. 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 Lukas reports if he has bad posture it hurts more, has a stand up desk at work. If he looks at his phone even for 5 minutes the pain starts starts. He isn't getting the pain in the elbow. He feels tighter in his upper neck. He hasn't gotten massages with covid. Taking motrin really helps. He Takes it as needed. He feels like massage really will help. Treatment Goals Patient/Caregiver Goals Pt's goals include decreasing pain symptoms before they progress and decreasing muscular tightness Current Functional Impairments (Reported) Functional Limitations- Work/School increased tightness with computer work or work on his phone, increased pain with flying due to flexed position PT-OP-C Subjective Start: 08/26/20 09:45 Freq: Status: Active Protocol: Document 08/26/20 10:30 [facility] (Rec: 08/26/20 13:41 [facility] [email or web address]) Patient Questionnaires Neck Disability Index NDI Score 10 Neck Disability Index Impairment 1 to 19% Impaired (Score 1-9) Quick Dash- Upper Extremity Quick Dash UE Score 15 Quick Dash UE Impairment 1 to 19% Impaired (Score 1-19) OP-PT Pain Assessment Pain Assessment Grid Paper Pain Assessment Grid Completed Yes Location cervical spine Pain Location Details cervical spine and L>R upper trapezius Intensity 3 Scale Used Numeric (0 - 10) Description Tightness Other Pain Aggravating Factors 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 Pt tolerated joint mobs well today PT-OP-J Posture/Palpation/Skin Start: 08/26/20 13:37 Freq: Status: Active Protocol: Document 08/26/20 10:30 [facility] (Rec: 08/26/20 13:48 [facility] [email or web address]) Palpation Assessment Location T2-T4 Palpation Details stiffness in the upper thoracic spine, hypomobility upper trapezius Palpation Location upper trapezius, scalenes, levator scapula Palpation Findings Soft Tissue Tightness,Muscle Guarding Palpation Details left greater than right upper trapezius tightness, scalenes, and levator scapula tightness left greater than right PT-OP-K Range of Motion Start: 08/26/20 13:37 Freq: Status: Active Protocol: Document 08/26/20 10:30 [facility] (Rec: 08/26/20 13:44 [facility] [email or web address]) Cervical Spine Range of Motion Cervical Spine Active Flexion 80 Extension 70 Rotation Left 50 Rotation Right 40 Lateral Flexion Left 15 Lateral Flexion Right 12 ROM Limitations Soft Tissue Tightness Comments flexion brings on some discomfort, sidebending tightness PT-OP-Q Treatments Start: 08/26/20 13:37 Freq: Status: Active Protocol: Document 08/26/20 10:30 [facility] (Rec: 08/26/20 13:49 [facility] [email or web address]) Manual Therapy Treatment Soft Tissue Mobilization MFR upper trapezius Body Location upper trapezius Mobilization Type Myofascial Release Joint Mobilizations T2-T4 Joint T2-T4 Direction PA Grade II Body Position Prone Comments good tolerance, stiffness through the upper thoracic spine PT-OP-T Assessment and Plan Start: 08/26/20 13:37 Freq: Status: Active Protocol: Document 08/26/20 10:30 [facility] (Rec: 08/31/20 17:24 [facility] [email or web address]) Physical Therapy Assessment Rehab Potential Rehabilitation Potential Excellent Evaluation Complexity Number of Personal Factors/Comorbidities 0 Number of Body Systems Impaired 1-2 Clinical Presentation at Evaluation Stable Impairments Impairments Activity Tolerance,Functional Mobility,Pain,Posture,ROM,Soft Tissue Mobility,Strength,Tone Goals sleep disturbed Impairment sleep mildly disturbed Fdc Goal (LTG) Lukas reports he is better able to sleep through the night without waking due to neck pain or radicular symptoms LTG Duration 8 weeks T2-T4 hypomobility Impairment T2-T4 hypomobility Weighter Goal (LTG) improve thoracic spine mobility into extension with both manual therapy techniques and ther ex HEP LTG Duration 8 week tightness of the upper trapezius, levator scapula, scalenes Impairment tightness of the upper trapezius, levator scapula, and scalenes Weighter Goal (LTG) Improve flexibility in the neck musculature with both manual therapy techniques and home exercise program of stretches for the neck LTG Duration 8 weeks. neck pain Impairment Neck pain rated 3/10 worse with slumped position Short Term Goal (STG) Lukas is able to perform all cervical ROM without pain STG Duration 4 weeks Weighter Goal (LTG) Overall Lukas notes a decrease in his cervical spine pain and has his work station set up at work to avoid undue strain on his neck. LTG Duration 8 weeks Assessment Summary Assessment Lukas presents to physical therapy today with chief complaints of cervical pain and stiffness. He has a history of a cervical discectomy in 2017. He notes he has been pretty pain free since then until about a year ago. He reports he took a airline flight and by the end of the flight had neck pain and numbness into the last 3 fingers of his right hand. Since then he has been trying to stretch and maintain good posture. He notes this really helps and nerve symptom have decreased. Lukas reports though that if he finds himself slumping at all or in bad posture for any length of time his symptoms will resume. Taking Motrin really helps and he only takes Motrin as needed. With examination there is hypomobility of the upper thoracic spine and muscle tightness in the upper trapezius and scalenes. Lukas would benefit from PT addressing this tightness and working towards improved mobility of the thoracic and cervical spine as well as improved flexibility. Physical Therapy Plan Frequency and Duration Frequency of Treatment 2x/Week Duration of Treatment 8 Plan of Care Start Date 08/26/20 Plan of Care End Date 10/21/20 Therapeutic Interventions Therapeutic Interventions Home Exercise Program,Manual Therapy,Neuromuscular Re- education,Patient/Caregiver Education,Self-Care/Home Management,Soft Tissue Mobilization,Therapeutic Exercises Next Visit Focus/Plan Next Note Type Treatment Note Next Visit Plan work on stretches for the cervical spine, manual MFR and stretches, work on thoracic stabilization
--- NOTE | 2020-08-31 17:41 | PT.OPPOC ---
Physical, Occupational & Speech Therapy At [facility] Current Diagnoses Cervicalgia (08/26/20) Visit Care Team Role Provider Type Tripp Joseph MD Attending Provider Physician Family Provider Primary Care Provider Referring Provider Specialty: Family Practice Address: [address] [place] [address], [facility] [place], [address] Email: [email or web address] Plan Of Care PT-OP-T Assessment and Plan Start: 08/26/20 13:37 Freq: Status: Active Protocol: Document 08/26/20 10:30 [facility] (Rec: 08/31/20 17:24 [facility] [email or web address]) Physical Therapy Assessment Rehab Potential Rehabilitation Potential Excellent Evaluation Complexity Number of Personal Factors/Comorbidities 0 Number of Body Systems Impaired 1-2 Clinical Presentation at Evaluation Stable Impairments Impairments Activity Tolerance,Functional Mobility,Pain,Posture,ROM,Soft Tissue Mobility,Strength,Tone Goals sleep disturbed Impairment sleep mildly disturbed [employer] Advisor Goal (LTG) Lukas reports he is better able to sleep through the night without waking due to neck pain or radicular symptoms LTG Duration 8 weeks T2-T4 hypomobility Impairment T2-T4 hypo mobility [employer] Advisor Goal (LTG) improve thoracic spine mobility into extension with both manual therapy techniques and ther ex HEP LTG Duration 8 week tightness of the upper trapezius, levator scapula, scalenes Impairment tightness of the upper trapezius, levator scapula, and scalenes [employer] Advisor Goal (LTG) Improve flexibility in the neck musculature with both manual therapy techniques and home exercise program of stretches for the neck LTG Duration 8 weeks. neck pain Impairment Neck pain rated 3/10 worse with slumped position Short Term Goal (STG) Lukas is able to perform all cervical ROM without pain STG Duration 4 weeks Residential Goal (LTG) Overall Lukas notes a decrease in his cervical spine pain and has his work station set up at work to avoid undue strain on his neck. LTG Duration 8 weeks Assessment Summary Assessment Lukas presents to physical therapy today with chief complaints of cervical pain and stiffness. He has a history of a cervical discectomy in 2017. He notes he has been pretty pain free since then until about a year ago. He reports he took a airline flight and by the end of the flight had neck pain and numbness into the last 3 fingers of his right hand. Since then he has been trying to stretch and maintain good posture. He notes this really helps and nerve symptom have decreased. Lukas reports though that if he finds himself slumping at all or in bad posture for any length of time his symptoms will resume. Taking Motrin really helps and he only takes Motrin as needed. With examination there is hypo mobility of the upper thoracic spine and muscle tightness in the upper trapezius and scalenes. Lukas would benefit from PT addressing this tightness and working towards improved mobility of the thoracic and cervical spine as well as improved flexibility. Physical Therapy Plan Frequency and Duration Frequency of Treatment 2x/Week Duration of Treatment 8 Plan of Care Start Date 08/26/20 Plan of Care End Date 10/21/20 Therapeutic Interventions Therapeutic Interventions Home Exercise Program,Manual Therapy,Neuromuscular Re- education,Patient/Caregiver Education,Self-Care/Home Management,Soft Tissue Mobilization,Therapeutic Exercises Next Visit Focus/Plan Next Note Type Treatment Note Next Visit Plan work on stretches for the cervical spine, manual MFR and stretches, work on thoracic stabilization Plan of Care Dates Plan of Care Start Date 08/26/20 Plan of Care End Date 10/21/20 Electronically Signed by: Judith Lebron, PT 08/31/20 1575 Please Sign and Return: I have reviewed this Plan of Care and certify that the skilled therapy services above are required to meet the patient?s needs. Physician Signature Date Printed Name and Credentials Clinical Instructor Signature Printed Name and Credentials
--- NOTE | 2020-09-10 12:34 | PT.OTN ---
Current Diagnoses Cervicalgia (09/15/20) Physical Therapy Treatment Note PT-OP-A Visit Information Start: 08/26/20 09:45 Freq: Status: Active Protocol: Document 09/10/20 18:14 [facility] (Rec: 09/10/20 18:14 [facility] [email or web address]) Out-Patient Physical Therapy Visit Information Visit Information Visit Type Treatment Note Visit Start Time 13:45 Visit Stop Time 14:30 Total Visit Minutes 45 Visit Number 2 PT-OP-B Current Condition Start: 08/26/20 09:45 Freq: Status: Active Protocol: Document 08/26/20 10:30 [facility] (Rec: 08/26/20 10:38 [facility] [id number]) Current Condition History of Current Condition Onset Date it has been a year since his neck started bothering him again. 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 Lukas reports if he has bad posture it hurts more, has a stand up desk at work. If he looks at his phone even for 5 minutes the pain starts starts. He isn't getting the pain in the elbow. He feels tighter in his upper neck. He hasn't gotten massages with covid. Taking motrin really helps. Dr. Joseph put him on amoxitran but motrin works better. Takes it as needed. He feels like massage really will help. Treatment Goals Patient/Caregiver Goals Pt's goals include decreasing pain symptoms before they progress and decreasing muscular tightness Current Functional Impairments (Reported) Functional Limitations- Work/School increased tightness with computer work or work on his phone, increased pain with flying due to flexed position PT-OP-C Subjective Start: 08/26/20 09:45 Freq: Status: Active Protocol: Document 09/10/20 13:48 [facility] (Rec: 09/10/20 13:49 [facility] [id number]) OP-PT Subjective Patient Comments Patient Comments Had a 1.5 hour massage last monday but didn't get any significant relief. Last three days he feels like he has a kink in his neck. Today is a little better. PT-OP-F Manual Assessment Start: 08/26/20 13:37 Freq: Status: Active Protocol: Document 08/26/20 10:30 [facility] (Rec: 08/26/20 13:50 [facility] [email or web address]) Manual Assessments Soft Tissue Assessment Soft Tissue Mobility Assessment tightness upper trapezius, scalenes, levator scapula bilaterally but left greater than right Joint Mobility Assessment Joint Mobility Assessment hypomobile T spine T 2-T4 specificially. Pt tolerated joint mobs well today PT-OP-J Posture/Palpation/Skin Start: 08/26/20 13:37 Freq: Status: Active Protocol: Document 08/26/20 10:30 [facility] (Rec: 08/26/20 13:48 [facility] [email or web address]) Palpation Assessment Location T2-T4 Palpation Details stiffness in the upper thoracic spine, hypomobility upper trapezius Palpation Location upper trapezius, scalenes, levator scapula Palpation Findings Soft Tissue Tightness,Muscle Guarding Palpation Details left greater than right upper trapezius tightness, scalenes, and levator scapula tightness left greater than right PT-OP-K Range of Motion Start: 08/26/20 13:37 Freq: Status: Active Protocol: Document 08/26/20 10:30 [facility] (Rec: 08/26/20 13:44 [facility] [email or web address]) Cervical Spine Range of Motion Cervical Spine Active Flexion 80 Extension 70 Rotation Left 50 Rotation Right 40 Lateral Flexion Left 15 Lateral Flexion Right 12 ROM Limitations Soft Tissue Tightness Comments flexion brings on some discomfort, sidebending tightness PT-OP-Q Treatments Start: 08/26/20 13:37 Freq: Status: Active Protocol: Document 09/10/20 10:30 [facility] (Rec: 09/15/20 12:32 [facility] [id number]) Manual Therapy Treatment Soft Tissue Mobilization MFR left SCM Body Location MFR left SCM MFR upper trapezius Body Location upper trapezius Mobilization Type Myofascial Release Joint Mobilizations C3-4 Joint C3-4 gentle side glides Left Comments grade II gentle side gildes left side of the cervical spine Manual Traction Cervical Details manual cervical traction Manual Techniques MWM atlas wiggle Type MWM atlas wiggle Comments 6 sec x 6 reps PT-OP-R Modalities Start: 09/15/20 12:33 Freq: Status: Active Protocol: Document 09/10/20 10:30 [facility] (Rec: 09/15/20 12:34 [facility] [id number]) Ultrasound Therapy Treatment left cervical spine Treatment Duration (minutes) 8 Patient Position Sitting Coupling Medium Ultrasound Gel Applicator Size (cm2) 5 Mode Setting Continuous Duty Cycle 100% PT-OP-T Assessment and Plan Start: 08/26/20 13:37 Freq: Status: Active Protocol: Document 09/10/20 10:30 [facility] (Rec: 09/15/20 12:32 [facility] [id number]) Physical Therapy Assessment Assessment Summary Assessment LEft C1 was rotated today and left SCM was tight. I worked on SCM release, c3-4 gentle side glides and C 1 atlas wiggle with MWM. Pt tolerated this well and ice was placed on his neck following treatment Physical Therapy Plan Frequency and Duration Frequency of Treatment 2x/Week Duration of Treatment 8 Plan of Care Start Date 08/26/20 Plan of Care End Date 10/21/20 Therapeutic Interventions Therapeutic Interventions Home Exercise Program,Manual Therapy,Neuromuscular Re- education,Patient/Caregiver Education,Self-Care/Home Management,Soft Tissue Mobilization,Therapeutic Exercises Next Visit Focus/Plan Next Note Type Treatment Note Next Visit Plan work on stretches for the cervical spine, manual MFR and stretches, work on thoracic stabilization
--- NOTE | 2020-09-15 15:43 | PT.OTN ---
Current Diagnoses Cervicalgia (09/15/20) Physical Therapy Treatment Note PT-OP-A Visit Information Start: 08/26/20 09:45 Freq: Status: Active Protocol: Document 09/15/20 15:39 [facility] (Rec: 09/15/20 15:43 [facility] [email or web address]) Out-Patient Physical Therapy Visit Information Visit Information Visit Type Treatment Note Visit Start Time 10:35 Visit Stop Time 11:20 Total Visit Minutes 45 Visit Number 3 PT-OP-B Current Condition Start: 08/26/20 09:45 Freq: Status: Active Protocol: Document 08/26/20 10:30 [facility] (Rec: 08/26/20 10:38 [facility] [id number]) Current Condition History of Current Condition Onset Date it has been a year since his neck started bothering him again. 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 Lukas reports if he has bad posture it hurts more, has a stand up desk at work. If he looks at his phone even for 5 minutes the pain starts starts. He isn't getting the pain in the elbow. He feels tighter in his upper neck. He hasn't gotten massages with covid. Taking motrin really helps. Dr. Joseph put him on amoxitran but motrin works better. Takes it as needed. He feels like massage really will help. Treatment Goals Patient/Caregiver Goals Pt's goals include decreasing pain symptoms before they progress and decreasing muscular tightness Current Functional Impairments (Reported) Functional Limitations- Work/School increased tightness with computer work or work on his phone, increased pain with flying due to flexed position PT-OP-C Subjective Start: 08/26/20 09:45 Freq: Status: Active Protocol: Document 09/15/20 15:39 [facility] (Rec: 09/15/20 15:43 [facility] [email or web address]) OP-PT Subjective Patient Comments Patient Comments PT notes he is doing better today and felt better after last visit. He did experience some tingling into his first two fingers this past week. PT-OP-F Manual Assessment Start: 08/26/20 13:37 Freq: Status: Active Protocol: Document 08/26/20 10:30 [facility] (Rec: 08/26/20 13:50 [facility] [email or web address]) Manual Assessments Soft Tissue Assessment Soft Tissue Mobility Assessment tightness upper trapezius, scalenes, levator scapula bilaterally but left greater than right Joint Mobility Assessment Joint Mobility Assessment hypomobile T spine T 2-T4 specificially. Pt tolerated joint mobs well today PT-OP-J Posture/Palpation/Skin Start: 08/26/20 13:37 Freq: Status: Active Protocol: Document 08/26/20 10:30 [facility] (Rec: 08/26/20 13:48 [facility] [email or web address]) Palpation Assessment Location T2-T4 Palpation Details stiffness in the upper thoracic spine, hypomobility upper trapezius Palpation Location upper trapezius, scalenes, levator scapula Palpation Findings Soft Tissue Tightness,Muscle Guarding Palpation Details left greater than right upper trapezius tightness, scalenes, and levator scapula tightness left greater than right PT-OP-K Range of Motion Start: 08/26/20 13:37 Freq: Status: Active Protocol: Document 08/26/20 10:30 [facility] (Rec: 08/26/20 13:44 [facility] [email or web address]) Cervical Spine Range of Motion Cervical Spine Active Flexion 80 Extension 70 Rotation Left 50 Rotation Right 40 Lateral Flexion Left 15 Lateral Flexion Right 12 ROM Limitations Soft Tissue Tightness Comments flexion brings on some discomfort, sidebending tightness PT-OP-Q Treatments Start: 08/26/20 13:37 Freq: Status: Active Protocol: Document 09/15/20 15:39 [facility] (Rec: 09/15/20 15:43 [facility] [email or web address]) Manual Therapy Treatment Soft Tissue Mobilization MFR left SCM Body Location MFR left SCM MFR upper trapezius Body Location upper trapezius Mobilization Type Myofascial Release Joint Mobilizations C3-4 Joint C3-4 gentle side glides Left Comments grade II gentle side gildes left side of the cervical spine Manual Techniques MWM atlas wiggle Type MWM atlas wiggle Comments 6 sec x 6 reps PT-OP-R Modalities Start: 09/15/20 12:33 Freq: Status: Active Protocol: Document 09/15/20 15:43 [facility] (Rec: 09/15/20 15:43 [facility] [email or web address]) Ultrasound Therapy Treatment left cervical spine Treatment Duration (minutes) 8 Patient Position Sitting Coupling Medium Ultrasound Gel Applicator Size (cm2) 5 Mode Setting Continuous Duty Cycle 100% PT-OP-T Assessment and Plan Start: 08/26/20 13:37 Freq: Status: Active Protocol: Document 09/15/20 15:39 [facility] (Rec: 09/15/20 15:43 [facility] [email or web address]) Physical Therapy Assessment Assessment Summary Assessment improved cervical ROM today and tolerated treatment well Physical Therapy Plan Frequency and Duration Frequency of Treatment 2x/Week Duration of Treatment 8 Plan of Care Start Date 08/26/20 Plan of Care End Date 10/21/20 Therapeutic Interventions Therapeutic Interventions Home Exercise Program,Manual Therapy,Neuromuscular Re- education,Patient/Caregiver Education,Self-Care/Home Management,Soft Tissue Mobilization,Therapeutic Exercises Next Visit Focus/Plan Next Note Type Treatment Note Next Visit Plan work on stretches for the cervical spine, manual MFR and stretches, work on thoracic stabilization
--- NOTE | 2020-09-17 17:59 | PT.OTN ---
Current Diagnoses Cervicalgia (09/17/20) Physical Therapy Treatment Note PT-OP-A Visit Information Start: 08/26/20 09:45 Freq: Status: Active Protocol: Document 09/17/20 17:55 [facility] (Rec: 09/17/20 17:59 [facility] [email or web address]) Out-Patient Physical Therapy Visit Information Visit Information Visit Type Treatment Note Visit Start Time 14:30 Visit Stop Time 15:15 Total Visit Minutes 45 Visit Number 4 PT-OP-B Current Condition Start: 08/26/20 09:45 Freq: Status: Active Protocol: Document 08/26/20 10:30 [facility] (Rec: 08/26/20 10:38 [facility] [id number]) Current Condition History of Current Condition Onset Date it has been a year since his neck started bothering him again. 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 Lukas reports if he has bad posture it hurts more, has a stand up desk at work. If he looks at his phone even for 5 minutes the pain starts starts. He isn't getting the pain in the elbow. He feels tighter in his upper neck. He hasn't gotten massages with covid. Taking motrin really helps. Dr. Joseph put him on amoxitran but motrin works better. Takes it as needed. He feels like massage really will help. Treatment Goals Patient/Caregiver Goals Pt's goals include decreasing pain symptoms before they progress and decreasing muscular tightness Current Functional Impairments (Reported) Functional Limitations- Work/School increased tightness with computer work or work on his phone, increased pain with flying due to flexed position PT-OP-C Subjective Start: 08/26/20 09:45 Freq: Status: Active Protocol: Document 09/17/20 17:55 [facility] (Rec: 09/17/20 17:59 [facility] [email or web address]) OP-PT Subjective Patient Comments Patient Comments pt reprots he feels better in the left side of his neck. He hasn't experienced the nerve symtpoms into his fingers the past couple of day. PT-OP-F Manual Assessment Start: 08/26/20 13:37 Freq: Status: Active Protocol: Document 08/26/20 10:30 [facility] (Rec: 08/26/20 13:50 [facility] [email or web address]) Manual Assessments Soft Tissue Assessment Soft Tissue Mobility Assessment tightness upper trapezius, scalenes, levator scapula bilaterally but left greater than right Joint Mobility Assessment Joint Mobility Assessment hypomobile T spine T 2-T4 specificially. Pt tolerated joint mobs well today PT-OP-J Posture/Palpation/Skin Start: 08/26/20 13:37 Freq: Status: Active Protocol: Document 08/26/20 10:30 [facility] (Rec: 08/26/20 13:48 [facility] [email or web address]) Palpation Assessment Location T2-T4 Palpation Details stiffness in the upper thoracic spine, hypomobility upper trapezius Palpation Location upper trapezius, scalenes, levator scapula Palpation Findings Soft Tissue Tightness,Muscle Guarding Palpation Details left greater than right upper trapezius tightness, scalenes, and levator scapula tightness left greater than right PT-OP-K Range of Motion Start: 08/26/20 13:37 Freq: Status: Active Protocol: Document 08/26/20 10:30 [facility] (Rec: 08/26/20 13:44 [facility] [email or web address]) Cervical Spine Range of Motion Cervical Spine Active Flexion 80 Extension 70 Rotation Left 50 Rotation Right 40 Lateral Flexion Left 15 Lateral Flexion Right 12 ROM Limitations Soft Tissue Tightness Comments flexion brings on some discomfort, sidebending tightness PT-OP-Q Treatments Start: 08/26/20 13:37 Freq: Status: Active Protocol: Document 09/17/20 17:55 [facility] (Rec: 09/17/20 17:59 [facility] [email or web address]) Manual Therapy Treatment Soft Tissue Mobilization MFR left SCM Body Location MFR left SCM MFR upper trapezius Body Location upper trapezius Mobilization Type Myofascial Release Joint Mobilizations C3-4 Joint C3-4 gentle side glides Left Comments grade II gentle side gildes left side of the cervical spine T2-T4 Joint T2-T4 Direction PA Grade II Body Position Prone Comments good tolerance, stiffness through the upper thoracic spine PT-OP-R Modalities Start: 09/15/20 12:33 Freq: Status: Active Protocol: Document 09/17/20 17:55 [facility] (Rec: 09/17/20 17:59 [facility] [email or web address]) Ultrasound Therapy Treatment left cervical spine Treatment Duration (minutes) 8 Patient Position Sitting Coupling Medium Ultrasound Gel Applicator Size (cm2) 5 Mode Setting Continuous Duty Cycle 100% Right Medial Forearm Applicator Size (cm2) 5 Duty Cycle 100% PT-OP-T Assessment and Plan Start: 08/26/20 13:37 Freq: Status: Active Protocol: Document 09/17/20 17:55 [facility] (Rec: 09/17/20 17:59 [facility] [email or web address]) Physical Therapy Assessment Assessment Summary Assessment decreased guarding left side of the cervical spine now. Begin working towards improved thoracic mobility with lat pull down and seated rows next visit Physical Therapy Plan Frequency and Duration Frequency of Treatment 2x/Week Duration of Treatment 8 Plan of Care Start Date 08/26/20 Plan of Care End Date 10/21/20 Therapeutic Interventions Therapeutic Interventions Home Exercise Program,Manual Therapy,Neuromuscular Re- education,Patient/Caregiver Education,Self-Care/Home Management,Soft Tissue Mobilization,Therapeutic Exercises Next Visit Focus/Plan Next Note Type Treatment Note Next Visit Plan begin working on thoracic mobility, quadruped thoracic mobilization, lat pull downs and seated rows.
--- NOTE | 2020-09-22 16:59 | PT.OTN ---
Current Diagnoses Cervicalgia (09/24/20) Physical Therapy Treatment Note PT-OP-A Visit Information Start: 08/26/20 09:45 Freq: Status: Active Protocol: Document 09/22/20 13:45 [facility] (Rec: 09/24/20 15:12 [facility] [id number]) Out-Patient Physical Therapy Visit Information Visit Information Visit Type Treatment Note Visit Start Time 14:30 Visit Stop Time 15:15 Total Visit Minutes 45 Visit Number 5 PT-OP-B Current Condition Start: 08/26/20 09:45 Freq: Status: Active Protocol: Document 08/26/20 10:30 [facility] (Rec: 08/26/20 10:38 [facility] [id number]) Current Condition History of Current Condition Onset Date it has been a year since his neck started bothering him again. 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 Lukas reports if he has bad posture it hurts more, has a stand up desk at work. If he looks at his phone even for 5 minutes the pain starts starts. He isn't getting the pain in the elbow. He feels tighter in his upper neck. He hasn't gotten massages with covid. Taking motrin really helps. Dr. Joseph put him on amoxitran but motrin works better. Takes it as needed. He feels like massage really will help. Treatment Goals Patient/Caregiver Goals Pt's goals include decreasing pain symptoms before they progress and decreasing muscular tightness Current Functional Impairments (Reported) Functional Limitations- Work/School increased tightness with computer work or work on his phone, increased pain with flying due to flexed position PT-OP-C Subjective Start: 08/26/20 09:45 Freq: Status: Active Protocol: Document 09/22/20 13:45 [facility] (Rec: 09/24/20 14:36 [facility] [id number]) OP-PT Subjective Patient Comments Patient Comments pt notes he is tighter in his mid back, no tingling into his hands since monday. Patient Reported Progress Improving PT-OP-F Manual Assessment Start: 08/26/20 13:37 Freq: Status: Active Protocol: Document 08/26/20 10:30 [facility] (Rec: 08/26/20 13:50 [facility] [email or web address]) Manual Assessments Soft Tissue Assessment Soft Tissue Mobility Assessment tightness upper trapezius, scalenes, levator scapula bilaterally but left greater than right Joint Mobility Assessment Joint Mobility Assessment hypomobile T spine T 2-T4 specificially. Pt tolerated joint mobs well today PT-OP-J Posture/Palpation/Skin Start: 08/26/20 13:37 Freq: Status: Active Protocol: Document 08/26/20 10:30 [facility] (Rec: 08/26/20 13:48 [facility] [email or web address]) Palpation Assessment Location T2-T4 Palpation Details stiffness in the upper thoracic spine, hypomobility upper trapezius Palpation Location upper trapezius, scalenes, levator scapula Palpation Findings Soft Tissue Tightness,Muscle Guarding Palpation Details left greater than right upper trapezius tightness, scalenes, and levator scapula tightness left greater than right PT-OP-K Range of Motion Start: 08/26/20 13:37 Freq: Status: Active Protocol: Document 08/26/20 10:30 [facility] (Rec: 08/26/20 13:44 [facility] [email or web address]) Cervical Spine Range of Motion Cervical Spine Active Flexion 80 Extension 70 Rotation Left 50 Rotation Right 40 Lateral Flexion Left 15 Lateral Flexion Right 12 ROM Limitations Soft Tissue Tightness Comments flexion brings on some discomfort, sidebending tightness PT-OP-Q Treatments Start: 08/26/20 13:37 Freq: Status: Active Protocol: Document 09/22/20 13:45 [facility] (Rec: 09/24/20 15:18 [facility] [id number]) Gym Equipment Cable Column (Body Solid) Rows Details rows Resistance 60# Reps/Time 3x10 reps Lat Pull Down Details lat pull down Resistance 60# Reps/Time 3x10 reps Therapeutic Exercises Other Exercises prone super heros over the ball Other Exercise Name prone super heros over the ball Reps/Minutes x 10 reps each Manual Therapy Treatment Soft Tissue Mobilization MFR left SCM Body Location MFR left SCM MFR upper trapezius Body Location upper trapezius Mobilization Type Myofascial Release Joint Mobilizations T2-T4 Joint T2-T4 Direction PA Grade II Body Position Prone Comments good tolerance, stiffness through the upper thoracic spine PT-OP-R Modalities Start: 09/15/20 12:33 Freq: Status: Active Protocol: Document 09/17/20 17:55 [facility] (Rec: 09/17/20 17:59 [facility] [email or web address]) Ultrasound Therapy Treatment left cervical spine Treatment Duration (minutes) 8 Patient Position Sitting Coupling Medium Ultrasound Gel Applicator Size (cm2) 5 Mode Setting Continuous Duty Cycle 100% Right Medial Forearm Applicator Size (cm2) 5 Duty Cycle 100% PT-OP-T Assessment and Plan Start: 08/26/20 13:37 Freq: Status: Active Protocol: Document 09/22/20 13:45 [facility] (Rec: 09/24/20 16:59 [facility] [id number]) Physical Therapy Assessment Assessment Summary Assessment I worked on thoracic tightness today and started Lukas with thoracic stabilizing exercises . He tolerated this well. Physical Therapy Plan Frequency and Duration Frequency of Treatment 2x/Week Duration of Treatment 8 Plan of Care Start Date 08/26/20 Plan of Care End Date 10/21/20 Next Visit Focus/Plan Next Note Type Treatment Note Next Visit Plan continue progressing thoracic mobility exercises
--- NOTE | 2020-09-24 17:04 | PT.OTN ---
Current Diagnoses Cervicalgia (09/24/20) Physical Therapy Treatment Note PT-OP-A Visit Information Start: 08/26/20 09:45 Freq: Status: Active Protocol: Document 09/24/20 17:00 [facility] (Rec: 09/24/20 17:04 [facility] [id number]) Out-Patient Physical Therapy Visit Information Visit Information Visit Type Treatment Note Visit Start Time 14:30 Visit Stop Time 15:15 Total Visit Minutes 45 Visit Number 6 PT-OP-B Current Condition Start: 08/26/20 09:45 Freq: Status: Active Protocol: Document 08/26/20 10:30 [facility] (Rec: 08/26/20 10:38 [facility] [id number]) Current Condition History of Current Condition Onset Date it has been a year since his neck started bothering him again. 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 Lukas reports if he has bad posture it hurts more, has a stand up desk at work. If he looks at his phone even for 5 minutes the pain starts starts. He isn't getting the pain in the elbow. He feels tighter in his upper neck. He hasn't gotten massages with covid. Taking motrin really helps. Dr. Joseph put him on amoxitran but motrin works better. Takes it as needed. He feels like massage really will help. Treatment Goals Patient/Caregiver Goals Pt's goals include decreasing pain symptoms before they progress and decreasing muscular tightness Current Functional Impairments (Reported) Functional Limitations- Work/School increased tightness with computer work or work on his phone, increased pain with flying due to flexed position PT-OP-C Subjective Start: 08/26/20 09:45 Freq: Status: Active Protocol: Document 09/24/20 17:00 [facility] (Rec: 09/24/20 17:04 [facility] [id number]) OP-PT Subjective Patient Comments Patient Comments No complaints of tingling into his fingers for the past 2 days Patient Reported Progress Improving PT-OP-F Manual Assessment Start: 08/26/20 13:37 Freq: Status: Active Protocol: Document 08/26/20 10:30 [facility] (Rec: 08/26/20 13:50 [facility] [email or web address]) Manual Assessments Soft Tissue Assessment Soft Tissue Mobility Assessment tightness upper trapezius, scalenes, levator scapula bilaterally but left greater than right Joint Mobility Assessment Joint Mobility Assessment hypomobile T spine T 2-T4 specificially. Pt tolerated joint mobs well today PT-OP-J Posture/Palpation/Skin Start: 08/26/20 13:37 Freq: Status: Active Protocol: Document 08/26/20 10:30 [facility] (Rec: 08/26/20 13:48 [facility] [email or web address]) Palpation Assessment Location T2-T4 Palpation Details stiffness in the upper thoracic spine, hypomobility upper trapezius Palpation Location upper trapezius, scalenes, levator scapula Palpation Findings Soft Tissue Tightness,Muscle Guarding Palpation Details left greater than right upper trapezius tightness, scalenes, and levator scapula tightness left greater than right PT-OP-K Range of Motion Start: 08/26/20 13:37 Freq: Status: Active Protocol: Document 08/26/20 10:30 [facility] (Rec: 08/26/20 13:44 [facility] [email or web address]) Cervical Spine Range of Motion Cervical Spine Active Flexion 80 Extension 70 Rotation Left 50 Rotation Right 40 Lateral Flexion Left 15 Lateral Flexion Right 12 ROM Limitations Soft Tissue Tightness Comments flexion brings on some discomfort, sidebending tightness PT-OP-Q Treatments Start: 08/26/20 13:37 Freq: Status: Active Protocol: Document 09/24/20 17:00 [facility] (Rec: 09/24/20 17:04 [facility] [id number]) Gym Equipment Cable Column (Body Solid) Rows Details rows Resistance 60# Reps/Time 3x10 reps Lat Pull Down Details lat pull down Resistance 60# Reps/Time 3x10 reps Manual Therapy Treatment Soft Tissue Mobilization MFR left SCM Body Location MFR left SCM MFR upper trapezius Body Location upper trapezius Mobilization Type Myofascial Release Joint Mobilizations T2-T4 Joint T2-T4 Direction PA Grade II Body Position Prone Comments good tolerance, stiffness through the upper thoracic spine Manual Techniques 2 Type manual cervical sidebend stretch for the scalenes and upper trap 1 Type ULTT nerve glides for median and ulnar nerve PT-OP-R Modalities Start: 09/15/20 12:33 Freq: Status: Active Protocol: Document 09/17/20 17:55 [facility] (Rec: 09/17/20 17:59 [facility] [email or web address]) Ultrasound Therapy Treatment left cervical spine Treatment Duration (minutes) 8 Patient Position Sitting Coupling Medium Ultrasound Gel Applicator Size (cm2) 5 Mode Setting Continuous Duty Cycle 100% Right Medial Forearm Applicator Size (cm2) 5 Duty Cycle 100% PT-OP-T Assessment and Plan Start: 08/26/20 13:37 Freq: Status: Active Protocol: Document 09/24/20 17:00 [facility] (Rec: 09/24/20 17:04 [facility] [id number]) Physical Therapy Assessment Assessment Summary Assessment Full ULTT today without symptoms, still tightness throughout the thoracic spine and parapsinals Physical Therapy Plan Frequency and Duration Frequency of Treatment 2x/Week Duration of Treatment 8 Plan of Care Start Date 08/26/20 Plan of Care End Date 10/21/20 Therapeutic Interventions Therapeutic Interventions Home Exercise Program,Manual Therapy,Neuromuscular Re- education,Patient/Caregiver Education,Self-Care/Home Management,Soft Tissue Mobilization,Therapeutic Exercises Next Visit Focus/Plan Next Note Type Treatment Note Next Visit Plan continue progressing thoracic mobility exercises, add in quadruped next visit
--- NOTE | 2020-09-29 15:41 | PT.OTN ---
Current Diagnoses Cervicalgia (09/29/20) Physical Therapy Treatment Note PT-OP-A Visit Information Start: 08/26/20 09:45 Freq: Status: Active Protocol: Document 09/29/20 10:32 [facility] (Rec: 09/29/20 10:32 [facility] [id number]) Out-Patient Physical Therapy Visit Information Visit Information Visit Type Treatment Note Visit Start Time 10:32 Visit Stop Time 11:15 Total Visit Minutes 43 Visit Number 7 PT-OP-B Current Condition Start: 08/26/20 09:45 Freq: Status: Active Protocol: Document 08/26/20 10:30 [facility] (Rec: 08/26/20 10:38 [facility] [id number]) Current Condition History of Current Condition Onset Date it has been a year since his neck started bothering him again. 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 Lukas reports if he has bad posture it hurts more, has a stand up desk at work. If he looks at his phone even for 5 minutes the pain starts starts. He isn't getting the pain in the elbow. He feels tighter in his upper neck. He hasn't gotten massages with covid. Taking motrin really helps. Dr. Joseph put him on amoxitran but motrin works better. Takes it as needed. He feels like massage really will help. Treatment Goals Patient/Caregiver Goals Pt's goals include decreasing pain symptoms before they progress and decreasing muscular tightness Current Functional Impairments (Reported) Functional Limitations- Work/School increased tightness with computer work or work on his phone, increased pain with flying due to flexed position PT-OP-C Subjective Start: 08/26/20 09:45 Freq: Status: Active Protocol: Document 09/29/20 15:39 [facility] (Rec: 09/29/20 15:41 [facility] [email or web address]) OP-PT Subjective Patient Comments Patient Comments pt notes he is feeling better overall since staring PT Patient Reported Progress Improving PT-OP-F Manual Assessment Start: 08/26/20 13:37 Freq: Status: Active Protocol: Document 08/26/20 10:30 [facility] (Rec: 08/26/20 13:50 [facility] [email or web address]) Manual Assessments Soft Tissue Assessment Soft Tissue Mobility Assessment tightness upper trapezius, scalenes, levator scapula bilaterally but left greater than right Joint Mobility Assessment Joint Mobility Assessment hypomobile T spine T 2-T4 specificially. Pt tolerated joint mobs well today PT-OP-J Posture/Palpation/Skin Start: 08/26/20 13:37 Freq: Status: Active Protocol: Document 08/26/20 10:30 [facility] (Rec: 08/26/20 13:48 [facility] [email or web address]) Palpation Assessment Location T2-T4 Palpation Details stiffness in the upper thoracic spine, hypomobility upper trapezius Palpation Location upper trapezius, scalenes, levator scapula Palpation Findings Soft Tissue Tightness,Muscle Guarding Palpation Details left greater than right upper trapezius tightness, scalenes, and levator scapula tightness left greater than right PT-OP-K Range of Motion Start: 08/26/20 13:37 Freq: Status: Active Protocol: Document 08/26/20 10:30 [facility] (Rec: 08/26/20 13:44 [facility] [email or web address]) Cervical Spine Range of Motion Cervical Spine Active Flexion 80 Extension 70 Rotation Left 50 Rotation Right 40 Lateral Flexion Left 15 Lateral Flexion Right 12 ROM Limitations Soft Tissue Tightness Comments flexion brings on some discomfort, sidebending tightness PT-OP-Q Treatments Start: 08/26/20 13:37 Freq: Status: Active Protocol: Document 09/29/20 15:39 [facility] (Rec: 09/29/20 15:41 [facility] [email or web address]) Gym Equipment Cable Column (Body Solid) Rows Details rows Resistance 60# Reps/Time 3x10 reps Lat Pull Down Details lat pull down Resistance 60# Reps/Time 3x10 reps Therapeutic Exercises Other Exercises quadruped thoracic mobilizations Other Exercise Name quadruped thoracic mobilizations Reps/Minutes x 10 prone super heros over the ball Other Exercise Name prone super heros over the ball Reps/Minutes x 10 reps each Manual Therapy Treatment Soft Tissue Mobilization MFR left SCM Body Location MFR left SCM MFR upper trapezius Body Location upper trapezius Mobilization Type Myofascial Release Joint Mobilizations T2-T4 Joint T2-T4 Direction PA Grade II Body Position Prone Comments good tolerance, stiffness through the upper thoracic spine Nerve Glides median nerve glides Nerve median nerve glides PT-OP-R Modalities Start: 09/15/20 12:33 Freq: Status: Active Protocol: Document 09/17/20 17:55 [facility] (Rec: 09/17/20 17:59 [facility] [email or web address]) Ultrasound Therapy Treatment left cervical spine Treatment Duration (minutes) 8 Patient Position Sitting Coupling Medium Ultrasound Gel Applicator Size (cm2) 5 Mode Setting Continuous Duty Cycle 100% Right Medial Forearm Applicator Size (cm2) 5 Duty Cycle 100% PT-OP-T Assessment and Plan Start: 08/26/20 13:37 Freq: Status: Active Protocol: Document 09/24/20 17:00 [facility] (Rec: 09/24/20 17:04 [facility] [id number]) Physical Therapy Assessment Assessment Summary Assessment Full ULTT today without symptoms, still tightness throughout the thoracic spine and parapsinals Physical Therapy Plan Frequency and Duration Frequency of Treatment 2x/Week Duration of Treatment 8 Plan of Care Start Date 08/26/20 Plan of Care End Date 10/21/20 Therapeutic Interventions Therapeutic Interventions Home Exercise Program,Manual Therapy,Neuromuscular Re- education,Patient/Caregiver Education,Self-Care/Home Management,Soft Tissue Mobilization,Therapeutic Exercises Next Visit Focus/Plan Next Note Type Treatment Note Next Visit Plan continue progressing thoracic mobility exercises, add in quadruped next visit
--- NOTE | 2020-10-06 16:45 | PT.OTN ---
Current Diagnoses Cervicalgia (10/06/20) Physical Therapy Treatment Note PT-OP-A Visit Information Start: 08/26/20 09:45 Freq: Status: Active Protocol: Document 10/06/20 16:00 [facility] (Rec: 10/08/20 09:10 [facility] [email or web address][facility] Out-Patient Physical Therapy Visit Information Visit Information Visit Type Treatment Note Visit Start Time 16:00 Visit Stop Time 16:45 Total Visit Minutes 45 Visit Number 8 PT-OP-B Current Condition Start: 08/26/20 09:45 Freq: Status: Active Protocol: Document 08/26/20 10:30 [facility] (Rec: 08/26/20 10:38 [facility] [id number]) Current Condition History of Current Condition Onset Date it has been a year since his neck started bothering him again. 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 Lukas reports if he has bad posture it hurts more, has a stand up desk at work. If he looks at his phone even for 5 minutes the pain starts starts. He isn't getting the pain in the elbow. He feels tighter in his upper neck. He hasn't gotten massages with covid. Taking motrin really helps. Dr. Joseph put him on amoxitran but motrin works better. Takes it as needed. He feels like massage really will help. Treatment Goals Patient/Caregiver Goals Pt's goals include decreasing pain symptoms before they progress and decreasing muscular tightness Current Functional Impairments (Reported) Functional Limitations- Work/School increased tightness with computer work or work on his phone, increased pain with flying due to flexed position PT-OP-C Subjective Start: 08/26/20 09:45 Freq: Status: Active Protocol: Document 10/06/20 16:00 [facility] (Rec: 10/08/20 09:10 [facility] [email or web address]) OP-PT Subjective Patient Comments Patient Comments pt reports today he has a kink in the right side of his neck . He has been doing the exercises at the gym for his thoracic spine and notes these feel good PT-OP-F Manual Assessment Start: 08/26/20 13:37 Freq: Status: Active Protocol: Document 08/26/20 10:30 [facility] (Rec: 08/26/20 13:50 [facility] [email or web address]) Manual Assessments Soft Tissue Assessment Soft Tissue Mobility Assessment tightness upper trapezius, scalenes, levator scapula bilaterally but left greater than right Joint Mobility Assessment Joint Mobility Assessment hypomobile T spine T 2-T4 specificially. Pt tolerated joint mobs well today PT-OP-J Posture/Palpation/Skin Start: 08/26/20 13:37 Freq: Status: Active Protocol: Document 08/26/20 10:30 [facility] (Rec: 08/26/20 13:48 [facility] [email or web address]) Palpation Assessment Location T2-T4 Palpation Details stiffness in the upper thoracic spine, hypomobility upper trapezius Palpation Location upper trapezius, scalenes, levator scapula Palpation Findings Soft Tissue Tightness,Muscle Guarding Palpation Details left greater than right upper trapezius tightness, scalenes, and levator scapula tightness left greater than right PT-OP-K Range of Motion Start: 08/26/20 13:37 Freq: Status: Active Protocol: Document 08/26/20 10:30 [facility] (Rec: 08/26/20 13:44 [facility] [email or web address]) Cervical Spine Range of Motion Cervical Spine Active Flexion 80 Extension 70 Rotation Left 50 Rotation Right 40 Lateral Flexion Left 15 Lateral Flexion Right 12 ROM Limitations Soft Tissue Tightness Comments flexion brings on some discomfort, sidebending tightness PT-OP-Q Treatments Start: 08/26/20 13:37 Freq: Status: Active Protocol: Document 10/06/20 16:00 [facility] (Rec: 10/08/20 09:10 [facility] [email or web address]) Therapeutic Exercises Other Exercises 1/2 foam roll Other Exercise Name 1/2 foam roll placed horizontally across T spine Reps/Minutes 1-2 min Comments head support with hands Manual Therapy Treatment Soft Tissue Mobilization bilateral upper trap, scalenes, levator scapula Comments worked on right side of the neck as pt was tight in the scalenes. Joint Mobilizations T2-T4 Joint T2-T4 Direction PA Grade II Body Position Prone Comments good tolerance, stiffness through the upper thoracic spine Nerve Glides median nerve glides Nerve median nerve glides PT-OP-R Modalities Start: 09/15/20 12:33 Freq: Status: Active Protocol: Document 09/17/20 17:55 [facility] (Rec: 09/17/20 17:59 [facility] [email or web address]) Ultrasound Therapy Treatment left cervical spine Treatment Duration (minutes) 8 Patient Position Sitting Coupling Medium Ultrasound Gel Applicator Size (cm2) 5 Mode Setting Continuous Duty Cycle 100% Right Medial Forearm Applicator Size (cm2) 5 Duty Cycle 100% PT-OP-T Assessment and Plan Start: 08/26/20 13:37 Freq: Status: Active Protocol: Document 10/06/20 16:00 [facility] (Rec: 10/08/20 09:10 [facility] [email or web address]) Physical Therapy Assessment Assessment Summary Assessment I added in the 1/ foam roll today for Lukas and he tolerated this well. He was given 2 additional appointments and will need another insurance authorization for more. He is still feeling like the MRI would be helpful as he continues to have flares with his neck Physical Therapy Plan Frequency and Duration Frequency of Treatment 2x/Week Duration of Treatment 8 Plan of Care Start Date 08/26/20 Plan of Care End Date 10/21/20 Therapeutic Interventions Therapeutic Interventions Home Exercise Program,Manual Therapy,Neuromuscular Re- education,Patient/Caregiver Education,Self-Care/Home Management,Soft Tissue Mobilization,Therapeutic Exercises Next Visit Focus/Plan Next Note Type Progress Note Next Visit Plan Will attempt further visits with insurance. Continue progressing thoracic mobility exercises, add in quadruped next visit
--- NOTE | 2020-12-10 17:30 | PT.OTN ---
Current Diagnoses Cervicalgia (12/10/20) Physical Therapy Treatment Note PT-OP-A Visit Information Start: 08/26/20 09:45 Freq: Status: Active Protocol: Document 10/06/20 16:00 [facility] (Rec: 10/08/20 09:10 [facility] [email or web address]) Out-Patient Physical Therapy Visit Information Visit Information Visit Type Treatment Note Visit Start Time 16:00 Visit Stop Time 16:45 Total Visit Minutes 45 Visit Number 8 PT-OP-B Current Condition Start: 08/26/20 09:45 Freq: Status: Active Protocol: Document 08/26/20 10:30 [facility] (Rec: 08/26/20 10:38 [facility] [id number]) Current Condition History of Current Condition Onset Date it has been a year since his neck started bothering him again. 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 Lukas reports if he has bad posture it hurts more, has a stand up desk at work. If he looks at his phone even for 5 minutes the pain starts starts. He isn't getting the pain in the elbow. He feels tighter in his upper neck. He hasn't gotten massages with covid. Taking motrin really helps. Dr. Joseph put him on amoxitran but motrin works better. Takes it as needed. He feels like massage really will help. Treatment Goals Patient/Caregiver Goals Pt's goals include decreasing pain symptoms before they progress and decreasing muscular tightness Current Functional Impairments (Reported) Functional Limitations- Work/School increased tightness with computer work or work on his phone, increased pain with flying due to flexed position PT-OP-C Subjective Start: 08/26/20 09:45 Freq: Status: Active Protocol: Document 12/10/20 14:35 [facility] (Rec: 12/10/20 14:36 [facility] [id number]) OP-PT Subjective Patient Comments Patient Comments [place] really good approx 1 month ago doing PT, taking motrin as needed, no complaints of symtptoms into his fingers. PT-OP-F Manual Assessment Start: 08/26/20 13:37 Freq: Status: Active Protocol: Document 08/26/20 10:30 [facility] (Rec: 08/26/20 13:50 [facility] [email or web address]) Manual Assessments Soft Tissue Assessment Soft Tissue Mobility Assessment tightness upper trapezius, scalenes, levator scapula bilaterally but left greater than right Joint Mobility Assessment Joint Mobility Assessment hypomobile T spine T 2-T4 specificially. Pt tolerated joint mobs well today PT-OP-J Posture/Palpation/Skin Start: 08/26/20 13:37 Freq: Status: Active Protocol: Document 08/26/20 10:30 [facility] (Rec: 08/26/20 13:48 [facility] [email or web address]) Palpation Assessment Location T2-T4 Palpation Details stiffness in the upper thoracic spine, hypomobility upper trapezius Palpation Location upper trapezius, scalenes, levator scapula Palpation Findings Soft Tissue Tightness,Muscle Guarding Palpation Details left greater than right upper trapezius tightness, scalenes, and levator scapula tightness left greater than right PT-OP-K Range of Motion Start: 08/26/20 13:37 Freq: Status: Active Protocol: Document 08/26/20 10:30 [facility] (Rec: 08/26/20 13:44 [facility] [email or web address]) Cervical Spine Range of Motion Cervical Spine Active Flexion 80 Extension 70 Rotation Left 50 Rotation Right 40 Lateral Flexion Left 15 Lateral Flexion Right 12 ROM Limitations Soft Tissue Tightness Comments flexion brings on some discomfort, sidebending tightness PT-OP-Q Treatments Start: 08/26/20 13:37 Freq: Status: Active Protocol: Document 12/10/20 17:23 [facility] (Rec: 12/10/20 17:30 [facility] [email or web address]) Manual Therapy Treatment Soft Tissue Mobilization bilateral upper trap, scalenes, levator scapula Comments worked on right side of the neck as pt was tight in the scalenes. MFR left SCM Body Location MFR left SCM MFR upper trapezius Body Location upper trapezius Mobilization Type Myofascial Release Joint Mobilizations C3-4 Joint C3-4 gentle side glides Left Comments grade II gentle side gildes left side of the cervical spine T2-T4 Joint T2-T4 Direction PA Grade II Body Position Prone Comments good tolerance, stiffness through the upper thoracic spine Manual Techniques 2 Type manual cervical sidebend stretch for the scalenes and upper trap PT-OP-R Modalities Start: 09/15/20 12:33 Freq: Status: Active Protocol: Document 09/17/20 17:55 [facility] (Rec: 09/17/20 17:59 [facility] [email or web address]) Ultrasound Therapy Treatment left cervical spine Treatment Duration (minutes) 8 Patient Position Sitting Coupling Medium Ultrasound Gel Applicator Size (cm2) 5 Mode Setting Continuous Duty Cycle 100% Right Medial Forearm Applicator Size (cm2) 5 Duty Cycle 100% PT-OP-T Assessment and Plan Start: 08/26/20 13:37 Freq: Status: Active Protocol: Document 12/10/20 17:23 [facility] (Rec: 12/10/20 17:30 [facility] [email or web address]) Physical Therapy Assessment Goals sleep disturbed Impairment sleep mildly disturbed 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 We will work on progression of these exercises LTG Duration 8 week tightness of the upper trapezius, levator scapula, scalenes Impairment tightness of the upper trapezius, levator scapula, and scalenes Detention Goal (LTG) Improve flexibility in the neck musculature with both manual therapy techniques and home exercise program of stretches for the neck Good progress LTG Duration 8 weeks. neck pain Impairment Neck pain rated 3/10 worse with slumped position Short Term Goal (STG) Lukas is able to perform all cervical ROM without pain STG Duration 4 weeks Detention Goal (LTG) Overall Lukas notes a decrease in his cervical spine pain and has his work station set up at work to avoid undue strain on his neck. Good progress LTG Duration 8 weeks Assessment Summary Assessment Lukas returned to PT after not being seen since October due to insurance issues. He notes his symptoms are intermittent in nature and today had low pain levels. He is still tight in the thoracic spine and expecially with sidebending in his neck. No complaints of radicular symptoms at this time. He woudl benefit from progressing to throacic stabilizing exercises and continue to work on anterior chest flexibility exercises. Physical Therapy Plan Frequency and Duration Frequency of Treatment 2x/Week Duration of Treatment 8 Plan of Care Start Date 12/10/20 Plan of Care End Date 02/03/21 Therapeutic Interventions Therapeutic Interventions Home Exercise Program,Manual Therapy,Neuromuscular Re- education,Patient/Caregiver Education,Self-Care/Home Management,Soft Tissue Mobilization,Therapeutic Exercises
--- NOTE | 2020-12-10 17:30 | PT.OPPOC ---
Physical, Occupational & Speech Therapy At [facility] Current Diagnoses Cervicalgia (12/10/20) Visit Care Team Role Provider Type Tripp Joseph MD Attending Provider Physician Family Provider Primary Care Provider Referring Provider Specialty: Family Practice Address: [address] [place] [address], [facility] [place], [address] Email: [email or web address] Plan Of Care PT-OP-T Assessment and Plan Start: 08/26/20 13:37 Freq: Status: Active Protocol: Document 12/10/20 17:23 [facility] (Rec: 12/10/20 17:30 [facility] [email or web address]) Physical Therapy Assessment Goals sleep disturbed Impairment sleep mildly disturbed 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 Good progress LTG Duration 8 weeks Assessment Summary Assessment Lukas returned to PT after not being seen since October due to insurance issues. He notes today his symptoms are intermittent in nature and today had low pain levels. He is still tight in the thoracic spine and especially with side bending in his neck. No complaints of radicular symptoms at this time. He would benefit from progressing to thoracic stabilizing exercises and continue to work on anterior chest flexibility exercises. Physical Therapy Plan Frequency and Duration Frequency of Treatment 2x/Week Duration of Treatment 8 Plan of Care Start Date 12/10/20 Plan of Care End Date 02/03/21 Therapeutic Interventions Therapeutic Interventions Home Exercise Program,Manual Therapy,Neuromuscular Re- education,Patient/Caregiver Education,Self-Care/Home Management,Soft Tissue Mobilization,Therapeutic Exercises Plan of Care Dates Plan of Care Start Date 12/10/20 Plan of Care End Date 02/03/21 Electronically Signed by: Judith Lebron, PT 12/10/20 [id number] Please Sign and Return: I have reviewed this Plan of Care and certify that the skilled therapy services above are required to meet the patient?s needs. Physician Signature Date Printed Name and Credentials Clinical Instructor Signature Printed Name and Credentials
--- NOTE | 2020-12-17 11:15 | PT.OTN ---
Current Diagnoses Cervicalgia (12/17/20) Physical Therapy Treatment Note PT-OP-A Visit Information Start: 08/26/20 09:45 Freq: Status: Active Protocol: Document 12/17/20 11:15 [facility] (Rec: 12/21/20 09:26 [facility] [email or web address]) Out-Patient Physical Therapy Visit Information Visit Information Visit Type Treatment Note Visit Start Time 11:15 Visit Stop Time 12:00 Total Visit Minutes 45 Visit Number 10 PT-OP-B Current Condition Start: 08/26/20 09:45 Freq: Status: Active Protocol: Document 08/26/20 10:30 [facility] (Rec: 08/26/20 10:38 [facility] [id number]) Current Condition History of Current Condition Onset Date it has been a year since his neck started bothering him again. 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 Lukas reports if he has bad posture it hurts more, has a stand up desk at work. If he looks at his phone even for 5 minutes the pain starts starts. He isn't getting the pain in the elbow. He feels tighter in his upper neck. He hasn't gotten massages with covid. Taking motrin really helps. Dr. Joseph put him on amoxitran but motrin works better. Takes it as needed. He feels like massage really will help. Treatment Goals Patient/Caregiver Goals Pt's goals include decreasing pain symptoms before they progress and decreasing muscular tightness Current Functional Impairments (Reported) Functional Limitations- Work/School increased tightness with computer work or work on his phone, increased pain with flying due to flexed position PT-OP-C Subjective Start: 08/26/20 09:45 Freq: Status: Active Protocol: Document 12/17/20 11:15 [facility] (Rec: 12/21/20 09:26 [facility] [email or web address]) OP-PT Subjective Patient Comments Patient Comments Pt reports he has been going back to the gym and doing his exercises, his back does feel looser today PT-OP-F Manual Assessment Start: 08/26/20 13:37 Freq: Status: Active Protocol: Document 08/26/20 10:30 [facility] (Rec: 08/26/20 13:50 [facility] [email or web address]) Manual Assessments Soft Tissue Assessment Soft Tissue Mobility Assessment tightness upper trapezius, scalenes, levator scapula bilaterally but left greater than right Joint Mobility Assessment Joint Mobility Assessment hypomobile T spine T 2-T4 specificially. Pt tolerated joint mobs well today PT-OP-J Posture/Palpation/Skin Start: 08/26/20 13:37 Freq: Status: Active Protocol: Document 08/26/20 10:30 [facility] (Rec: 08/26/20 13:48 [facility] [email or web address]) Palpation Assessment Location T2-T4 Palpation Details stiffness in the upper thoracic spine, hypomobility upper trapezius Palpation Location upper trapezius, scalenes, levator scapula Palpation Findings Soft Tissue Tightness,Muscle Guarding Palpation Details left greater than right upper trapezius tightness, scalenes, and levator scapula tightness left greater than right PT-OP-K Range of Motion Start: 08/26/20 13:37 Freq: Status: Active Protocol: Document 08/26/20 10:30 [facility] (Rec: 08/26/20 13:44 [facility] [email or web address]) Cervical Spine Range of Motion Cervical Spine Active Flexion 80 Extension 70 Rotation Left 50 Rotation Right 40 Lateral Flexion Left 15 Lateral Flexion Right 12 ROM Limitations Soft Tissue Tightness Comments flexion brings on some discomfort, sidebending tightness PT-OP-Q Treatments Start: 08/26/20 13:37 Freq: Status: Active Protocol: Document 12/17/20 11:15 [facility] (Rec: 12/21/20 09:26 [facility] [email or web address]) Manual Therapy Treatment Soft Tissue Mobilization bilateral upper trap, scalenes, levator scapula Comments worked on right side of the neck as pt was tight in the scalenes. MFR left SCM Body Location MFR left SCM MFR upper trapezius Body Location upper trapezius Mobilization Type Myofascial Release Joint Mobilizations C3-4 Joint C3-4 gentle side glides Left Comments grade II gentle side gildes left side of the cervical spine T2-T4 Joint T2-T4 Direction PA Grade II Body Position Prone Comments good tolerance, stiffness through the upper thoracic spine Nerve Glides median nerve glides Nerve median nerve glides PT-OP-R Modalities Start: 09/15/20 12:33 Freq: Status: Active Protocol: Document 09/17/20 17:55 [facility] (Rec: 09/17/20 17:59 [facility] [email or web address]) Ultrasound Therapy Treatment left cervical spine Treatment Duration (minutes) 8 Patient Position Sitting Coupling Medium Ultrasound Gel Applicator Size (cm2) 5 Mode Setting Continuous Duty Cycle 100% Right Medial Forearm Applicator Size (cm2) 5 Duty Cycle 100% PT-OP-T Assessment and Plan Start: 08/26/20 13:37 Freq: Status: Active Protocol: Document 12/17/20 11:15 [facility] (Rec: 12/21/20 09:26 [facility] [email or web address]) Physical Therapy Assessment Assessment Summary Assessment Lukas continues to show progress , he does still have tightness with median nerve glides, left greater than right side. HE has been working on his exercise program at home Physical Therapy Plan Frequency and Duration Frequency of Treatment 2x/Week Duration of Treatment 8 Plan of Care Start Date 12/10/20 Plan of Care End Date 02/03/21 Therapeutic Interventions Therapeutic Interventions Home Exercise Program,Manual Therapy,Neuromuscular Re- education,Patient/Caregiver Education,Self-Care/Home Management,Soft Tissue Mobilization,Therapeutic Exercises Next Visit Focus/Plan Next Note Type Treatment Note Next Visit Plan continue PT focusing on thoracic mobilility and cervcial stabilization/mobiliy , nerve gliding, anterior chest opening
--- NOTE | 2020-12-22 17:24 | PT.OTN ---
Current Diagnoses Cervicalgia (12/22/20) Physical Therapy Treatment Note PT-OP-A Visit Information Start: 08/26/20 09:45 Freq: Status: Active Protocol: Document 12/22/20 17:21 [facility] (Rec: 12/22/20 17:23 [facility] [email or web address]) Out-Patient Physical Therapy Visit Information Visit Information Visit Type Treatment Note Visit Start Time 14:30 Visit Stop Time 15:15 Total Visit Minutes 45 Visit Number 11 PT-OP-B Current Condition Start: 08/26/20 09:45 Freq: Status: Active Protocol: Document 08/26/20 10:30 [facility] (Rec: 08/26/20 10:38 [facility] [id number]) Current Condition History of Current Condition Onset Date it has been a year since his neck started bothering him again. 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 Lukas reports if he has bad posture it hurts more, has a stand up desk at work. If he looks at his phone even for 5 minutes the pain starts starts. He isn't getting the pain in the elbow. He feels tighter in his upper neck. He hasn't gotten massages with covid. Taking motrin really helps. Dr. Joseph put him on amoxitran but motrin works better. Takes it as needed. He feels like massage really will help. Treatment Goals Patient/Caregiver Goals Pt's goals include decreasing pain symptoms before they progress and decreasing muscular tightness Current Functional Impairments (Reported) Functional Limitations- Work/School increased tightness with computer work or work on his phone, increased pain with flying due to flexed position PT-OP-C Subjective Start: 08/26/20 09:45 Freq: Status: Active Protocol: Document 12/22/20 17:21 [facility] (Rec: 12/22/20 17:23 [facility] [email or web address]) OP-PT Subjective Patient Comments Patient Comments continuing to do better, working out at the gym and stretching PT-OP-F Manual Assessment Start: 08/26/20 13:37 Freq: Status: Active Protocol: Document 08/26/20 10:30 [facility] (Rec: 08/26/20 13:50 [facility] [email or web address]) Manual Assessments Soft Tissue Assessment Soft Tissue Mobility Assessment tightness upper trapezius, scalenes, levator scapula bilaterally but left greater than right Joint Mobility Assessment Joint Mobility Assessment hypomobile T spine T 2-T4 specificially. Pt tolerated joint mobs well today PT-OP-J Posture/Palpation/Skin Start: 08/26/20 13:37 Freq: Status: Active Protocol: Document 08/26/20 10:30 [facility] (Rec: 08/26/20 13:48 [facility] [email or web address]) Palpation Assessment Location T2-T4 Palpation Details stiffness in the upper thoracic spine, hypomobility upper trapezius Palpation Location upper trapezius, scalenes, levator scapula Palpation Findings Soft Tissue Tightness,Muscle Guarding Palpation Details left greater than right upper trapezius tightness, scalenes, and levator scapula tightness left greater than right PT-OP-K Range of Motion Start: 08/26/20 13:37 Freq: Status: Active Protocol: Document 08/26/20 10:30 [facility] (Rec: 08/26/20 13:44 [facility] [email or web address]) Cervical Spine Range of Motion Cervical Spine Active Flexion 80 Extension 70 Rotation Left 50 Rotation Right 40 Lateral Flexion Left 15 Lateral Flexion Right 12 ROM Limitations Soft Tissue Tightness Comments flexion brings on some discomfort, sidebending tightness PT-OP-Q Treatments Start: 08/26/20 13:37 Freq: Status: Active Protocol: Document 12/22/20 17:21 [facility] (Rec: 12/22/20 17:23 [facility] [email or web address]) Therapeutic Exercises Other Exercises nessa pose Reps/Minutes 1 min prone thoracic extension Reps/Minutes x 10 reps Manual Therapy Treatment Soft Tissue Mobilization bilateral upper trap, scalenes, levator scapula Comments worked on right side of the neck as pt was tight in the scalenes. MFR left SCM Body Location MFR left SCM MFR upper trapezius Body Location upper trapezius Mobilization Type Myofascial Release Joint Mobilizations T2-T4 Joint T2-T4 Direction PA Grade II Body Position Prone Comments good tolerance, stiffness through the upper thoracic spine Manual Techniques 2 Type manual cervical sidebend stretch for the scalenes and upper trap 1 Type ULTT nerve glides for median and ulnar nerve PT-OP-R Modalities Start: 09/15/20 12:33 Freq: Status: Active Protocol: Document 09/17/20 17:55 [facility] (Rec: 09/17/20 17:59 [facility] [email or web address]) Ultrasound Therapy Treatment left cervical spine Treatment Duration (minutes) 8 Patient Position Sitting Coupling Medium Ultrasound Gel Applicator Size (cm2) 5 Mode Setting Continuous Duty Cycle 100% Right Medial Forearm Applicator Size (cm2) 5 Duty Cycle 100% PT-OP-T Assessment and Plan Start: 08/26/20 13:37 Freq: Status: Active Protocol: Document 12/22/20 17:21 [facility] (Rec: 12/22/20 17:23 [facility] [email or web address]) Physical Therapy Assessment Assessment Summary Assessment Decreased nerve tension today on the left with ULTT, improving thoracic mobility Physical Therapy Plan Frequency and Duration Frequency of Treatment 2x/Week Duration of Treatment 8 Plan of Care Start Date 12/10/20 Plan of Care End Date 02/03/21 Next Visit Focus/Plan Next Note Type Treatment Note Next Visit Plan continue PT focusing on thoracic mobilility and cervcial stabilization/mobiliy , nerve gliding, anterior chest opening
== END ==
LOC: PHYS 08-26 10:13
PROVIDERS: Family Provider Family Medicine; PCP Family Medicine; Referring Provider Family Medicine; Visit Provider Family Medicine
DX: M54.2 Cervicalgia (principal)
CPT/HCPCS: 97035; 97110; 97140; 97161

== ENCOUNTER 2023-01-17 12:15 | Outpatient (RCR) | payer OTHER, SELFPAY ==
--- NOTE | 2022-11-17 16:56 | PT.OIE ---
Current Diagnoses Pain in left foot (11/16/22) Visit Care Team Role Provider Type Tripp Joseph MD Attending Provider Physician Family Provider Primary Care Provider Referring Provider Specialty: Family Practice Address: [address] [place] [address], [facility] [place], [facility] Email: [email or web address] Physical Therapy Initial Evaluation PT-OP-A Visit Information Start: 11/16/22 12:49 Freq: Status: Active Protocol: Document 11/16/22 12:49 [facility] (Rec: 11/16/22 13:32 [facility] [id number]) Out-Patient Physical Therapy Visit Information Visit Information Visit Type Initial Evaluation Visit Start Time 12:49 Visit Stop Time 13:25 Total Visit Minutes 36 Evaluation Information Evaluation Date 11/16/22 PT-OP-B Current Condition Start: 11/16/22 12:49 Freq: Status: Active Protocol: Document 11/16/22 12:49 [facility] (Rec: 11/16/22 13:32 [facility] [id number]) Current Condition History of Current Condition Onset Date 4 months ago Current Complaints 4 months of left side heel pain and pain into the achiles tendon History of Current Condition pt reports he has a bone spur on his left heel, pain is right at the heel and up into the achilies tendon. He started the night boot x 4 days ago and has been working on stretching his calf muscle. His pain is worse with walking and he is walking with a limp due to pain. He has had a consult with ortho and will be fitted for a custom orthotic. PT-OP-C Subjective Start: 11/16/22 12:49 Freq: Status: Active Protocol: Document 11/16/22 12:49 [facility] (Rec: 11/17/22 16:19 [facility] [id number]) Patient Questionnaires Foot & Ankle Ability Measure- ADL and Sports FAAM-ADL Score 56 FAAM-ADL Impairment 20 to 39% Impaired (Score 50- 66) FAAM-Sport Score 36 FAAM-Sport Impairment 40 to 59% Impaired (Score 12- 18) Lower Extremity Functional Scale LEFS Score 56 LEFS Impairment 20 to 39% Impaired (Score 48- 62) OP-PT Pain Assessment Location left achilles tendon Pain Location Details tenderness over the left achilles tendon Intensity 4 Scale Used Numeric (0 - 10) Description Aching left plantar fascia at attachment to the calcaneus Intensity 4 Scale Used Numeric (0 - 10) Description Radiating,Sharp,Tender,With Movement Description- Other pain with weight bearing PT-OP-F Manual Assessment Start: 11/16/22 12:49 Freq: Status: Active Protocol: Document 11/16/22 12:49 [facility] (Rec: 11/17/22 16:26 [facility] [id number]) Manual Assessments Soft Tissue Assessment Soft Tissue Mobility Assessment tighteness in the left gastroc soleus complex, tightness in the left plantar fascia Other Manual Assessments Other Manual Assessments tenderness to palpation over the bone spur left heel PT-OP-J Posture/Palpation/Skin Start: 11/16/22 12:49 Freq: Status: Active Protocol: Document 11/16/22 12:49 [facility] (Rec: 11/17/22 16:30 [facility] [id number]) Palpation Assessment Location left achilles tendon Palpation Location tenderness B sides of the achilles but worse on the medial side Palpation Findings Soft Tissue Tightness,Muscle Guarding,Tenderness left heel Palpation Location tenderness over the plantar fascia attachment to the heel Palpation Findings Soft Tissue Tightness,Muscle Guarding,Tenderness PT-OP-K Range of Motion Start: 11/16/22 12:49 Freq: Status: Active Protocol: Document 11/16/22 12:49 [facility] (Rec: 11/17/22 16:32 [facility] [id number]) Ankle and Foot Goniometric Range of Motion Ankle and Foot left Ankle/Foot ROM WFL No Testing Position Supine Dorsiflexion with Knee Flexed 12 Dorsiflexion with Knee Extended 10 Plantarflexion 30 Inversion 15 Eversion 10 Toe Range of Motion Toes ROM Limitations Toe ROM Limitations Soft Tissue Tightness Comments decreased great toe extension PT-OP-Q Treatments Start: 11/16/22 12:49 Freq: Status: Active Protocol: Document 11/16/22 12:49 [facility] (Rec: 11/16/22 13:33 [facility] [id number]) Manual Therapy Treatment Soft Tissue Mobilization MFR left achilles Mobilization Type Instrument Assisted Body Position Prone Comments pt was prone for MFR and tolerated well MFR plantar fascia Body Location left plantar fascia Mobilization Type Instrument Assisted Intensity/Depth Moderate Body Position Prone Comments pt tolerates use of gusha very well and noted that treatment felt good over his heel and achilles PT-OP-R Modalities Start: 11/16/22 13:34 Freq: Status: Active Protocol: Document 11/16/22 12:49 [facility] (Rec: 11/16/22 13:36 [facility] [id number]) Hot Pack/Cold Pack Treatment Ice Massage Location left heel and achilles tendon Patient Position Prone Treatment Duration (minutes) 5 Patient Tolerance Good Ultrasound Therapy Treatment left plantar fascia at the heel attachment Treatment Duration (minutes) 8 Patient Position Prone Coupling Medium Ultrasound Gel Applicator Size (cm2) 5 Frequency Setting (mHz) 1 Mode Setting Continuous Duty Cycle 100% Intensity Setting (w/cm2) 1.5 PT-OP-T Assessment and Plan Start: 11/16/22 12:49 Freq: Status: Active Protocol: Document 11/16/22 12:49 [facility] (Rec: 11/17/22 16:54 [facility] [id number]) Physical Therapy Assessment Rehab Potential Rehabilitation Potential Excellent Evaluation Complexity Number of Personal Factors/Comorbidities 0 Number of Body Systems Impaired 1-2 Clinical Presentation at Evaluation Stable Impairments Impairments Activity Tolerance,Functional Activities,Functional Mobility ,Gait,Pain,ROM,Soft Tissue Mobility Goals Three Impairment antalgic gait pattern placing stress on the plantar fascia tissues Fpc Goal (LTG) decrease the stress on the plantar fascia tissue by restoring gait pattern and the normal mechanics of the foot and leg LTG Duration 8 weeks Two Impairment soft tissue tightness of the plantar fascia and calf musculature on the left with point tenderness to palpation 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 Short Term Goal (STG) Lukas is educated in antiinflammatory modalities to asssit with pain reduction STG Duration 4 weeks Fpc Goal (LTG) Lukas is able to return to walking greater than 1 mile without a increase in plantar fascia pain LTG Duration 8 weeks+ Assessment Summary Assessment Lukas is a 57 year old male referred to PT with left sided plantar fascia pain that extends into the achilles tendon. Lukas reports pain started approx 4 months ago. He was experiencing left sided hip pain and his gait pattern had changed due to the hip pain which aggravated his plantar fascia. A X-ray has been taken which shows a large calcaneal bone spur on the left foot. Lukas has seen orthopedics and has an appointment scheduled for custom made orthotics. He has started wearing a night splint and feels this may be helping some. He is also working on stretching out his calf muscle. With examination today Lukas has point tenderness over the calcaneus and plantar fascia insertion. He is tender along the length of the left achilles tendon. Ultrasound was performed today at the plantar fascia attachment to the calcaneus followed by instrument assisted TFM to the plantar fascial. Lukas tolerated this well. Treatment was followed by ICE massage. Lukas would be a good candidate for Iontophoresis with dexamethasone for treatment of his plantar fascia. Treatment will also include Ultrasound, stretching, MFR and TFM, ice and a exercise program. Lukas is a good candidate for PT Physical Therapy Plan Frequency and Duration Frequency of Treatment 2x/Week Duration of treatment (weeks) 8 Plan of Care Start Date 11/17/22 Plan of Care End Date 01/12/23 Therapeutic Interventions Therapeutic Interventions Gait Training,Home Exercise Program,Joint Mobilizations, Manual Therapy,Patient/ Caregiver Education,Self-Care/ Home Management,Soft Tissue Mobilization,Taping, Therapeutic Exercises Modalities Cold Pack/Ice Massage, Iontophoresis Next Visit Focus/Plan Next Note Type Treatment Note Next Visit Plan reassess pain after first visit, continue with US and manual therapy techniques, trial of iontophoresis with dexamethasone next visit
--- NOTE | 2022-11-17 16:57 | PT.OPPOC ---
Physical, Occupational & Speech Therapy At [facility] Current Diagnoses Pain in left foot (11/16/22) Visit Care Team Role Provider Type Tripp Joseph MD Attending Provider Physician Family Provider Primary Care Provider Referring Provider Specialty: Family Practice Address: [address] [place] [address] [place], [address] Email: [email or web address] Plan Of Care PT-OP-T Assessment and Plan Start: 11/16/22 12:49 Freq: Status: Active Protocol: Document 11/16/22 12:49 [facility] (Rec: 11/17/22 16:54 [facility] [id number]) Physical Therapy Assessment Rehab Potential Rehabilitation Potential Excellent Evaluation Complexity Number of Personal Factors/Comorbidities 0 Number of Body Systems Impaired 1-2 Clinical Presentation at Evaluation Stable Impairments Impairments Activity Tolerance,Functional Activities,Functional Mobility ,Gait,Pain,ROM,Soft Tissue Mobility Goals Three Impairment antalgic gait pattern placing stress on the plantar fascia tissues Half-Way Goal (LTG) decrease the stress on the plantar fascia tissue by restoring gait pattern and the normal mechanics of the foot and leg LTG Duration 8 weeks Two Impairment soft tissue tightness of the plantar fascia and calf musculature on the left with point tenderness to palpation [employer]yst Plant Supervisor Goal (LTG) Lukas reports a overall decrease in tenderness to palpation and there is decreased tightness of the calf musculature with full ROM of ankle DF LTG Duration 8 weeks + One Impairment Left sided plantar fasica pain rated 4/10 worse with standing and walking. Short Term Goal (STG) Lukas is educated in anti inflammatory modalities to assist with pain reduction STG Duration 4 weeks Half-Way Goal (LTG) Lukas is able to return to walking greater than 1 mile without a increase in plantar fascia pain LTG Duration 8 weeks+ Assessment Summary Assessment Lukas is a 57 year old male referred to PT with left sided plantar fascia pain that extends into the Achilles tendon. Lukas reports pain started approx 4 months ago. He was experiencing left sided hip pain and his gait pattern had changed due to the hip pain which aggravated his plantar fascia. A X-ray has been taken which shows a large calcaneal bone spur on the left foot. Lukas has seen orthopedics and has an appointment scheduled for custom made orthotics. He has started wearing a night splint and feels this may be helping some. He is also working on stretching out his calf muscle. With examination today Lukas has point tenderness over the calcaneus and plantar fascia insertion. He is tender along the length of the left achilles tendon. Ultrasound was performed today at the plantar fascia attachment to the calcaneus followed by instrument assisted TFM to the plantar fascial. Lukas tolerated this well. Treatment was followed by ICE massage. Lukas would be a good candidate for Iontophoresis with dexamethasone for treatment of his plantar fascia. Treatment will also include Ultrasound, stretching, MFR and TFM, ice and a exercise program. Lukas is a good candidate for PT Physical Therapy Plan Frequency and Duration Frequency of Treatment 2x/Week Duration of treatment (weeks) 8 Plan of Care Start Date 11/17/22 Plan of Care End Date 01/12/23 Therapeutic Interventions Therapeutic Interventions Gait Training,Home Exercise Program,Joint Mobilizations, Manual Therapy,Patient/ Caregiver Education,Self-Care/ Home Management,Soft Tissue Mobilization,Taping, Therapeutic Exercises Modalities Cold Pack/Ice Massage, Iontophoresis Next Visit Focus/Plan Next Note Type Treatment Note Next Visit Plan reassess pain after first visit, continue with US and manual therapy techniques, trial of iontophoresis with dexamethasone next visit Plan of Care Dates Plan of Care Start Date 11/17/22 Plan of Care End Date 01/12/23 Electronically Signed by: Judith Lebron, PT 11/17/22 [id number] If you are in agreement with this Plan of Care, please return a signed and dated copy. I have reviewed this Plan of Care and certify that the skilled therapy services above are required to meet the patient?s needs. Physician Signature Date Printed Name and Credentials Clinical Instructor Signature Printed Name and Credentials
--- NOTE | 2022-11-24 17:24 | PT.OTN ---
Current Diagnoses Pain in left foot (11/24/22) Physical Therapy Treatment Note PT-OP-A Visit Information Start: 11/16/22 12:49 Freq: Status: Active Protocol: Document 11/24/22 15:17 [facility] (Rec: 11/24/22 15:27 [facility] [id number]) Out-Patient Physical Therapy Visit Information Visit Information Visit Type Treatment Note Visit Start Time 15:15 Visit Stop Time 16:00 Total Visit Minutes 45 Visit Number 2 PT-OP-B Current Condition Start: 11/16/22 12:49 Freq: Status: Active Protocol: Document 11/16/22 12:49 [facility] (Rec: 11/16/22 13:32 [facility] [id number]) Current Condition History of Current Condition Onset Date 4 months ago Current Complaints 4 months of left side heel pain and pain into the achiles tendon History of Current Condition pt reports he has a bone spur on his left heel, pain is right at the heel and up into the achilies tendon. He started the night boot x 4 days ago and has been working on stretching his calf muscle. His pain is worse with walking and he is walking with a limp due to pain. He has had a consult with ortho and will be fitted for a custom orthotic. PT-OP-C Subjective Start: 11/16/22 12:49 Freq: Status: Active Protocol: Document 11/24/22 15:17 [facility] (Rec: 11/24/22 15:27 [facility] [id number]) OP-PT Subjective Patient Comments Patient Comments pt notes sleeping in the boot helps and he has been doing better until [place] and he forgot to put on his boot last night so he is sore today PT-OP-F Manual Assessment Start: 11/16/22 12:49 Freq: Status: Active Protocol: Document 11/16/22 12:49 [facility] (Rec: 11/17/22 16:26 [facility] [id number]) Manual Assessments Soft Tissue Assessment Soft Tissue Mobility Assessment tighteness in the left gastroc soleus complex, tightness in the left plantar fascia Other Manual Assessments Other Manual Assessments tenderness to palpation over the bone spur left heel PT-OP-J Posture/Palpation/Skin Start: 11/16/22 12:49 Freq: Status: Active Protocol: Document 11/16/22 12:49 [facility] (Rec: 11/17/22 16:30 [facility] [id number]) Palpation Assessment Location left achilles tendon Palpation Location tenderness B sides of the achilles but worse on the medial side Palpation Findings Soft Tissue Tightness,Muscle Guarding,Tenderness left heel Palpation Location tenderness over the plantar fascia attachment to the heel Palpation Findings Soft Tissue Tightness,Muscle Guarding,Tenderness PT-OP-K Range of Motion Start: 11/16/22 12:49 Freq: Status: Active Protocol: Document 11/16/22 12:49 [facility] (Rec: 11/17/22 16:32 [facility] [id number]) Ankle and Foot Goniometric Range of Motion Ankle and Foot left Ankle/Foot ROM WFL No Testing Position Supine Dorsiflexion with Knee Flexed 12 Dorsiflexion with Knee Extended 10 Plantarflexion 30 Inversion 15 Eversion 10 Toe Range of Motion Toes ROM Limitations Toe ROM Limitations Soft Tissue Tightness Comments decreased great toe extension PT-OP-Q Treatments Start: 11/16/22 12:49 Freq: Status: Active Protocol: Document 11/24/22 15:15 [facility] (Rec: 11/24/22 17:21 [facility] [id number]) Therapeutic Exercises Standing Exercises standing soleus stretch Reps/Minutes 30 sec x 2 standing gastroc stretch Reps/Minutes 30 sec x 2 Manual Therapy Treatment Soft Tissue Mobilization MFR left achilles Mobilization Type Instrument Assisted Body Position Prone Comments pt was prone for MFR and tolerated well MFR plantar fascia Body Location left plantar fascia Mobilization Type Instrument Assisted Intensity/Depth Moderate Body Position Prone Comments pt tolerates use of gusha very well and noted that treatment felt good over his heel and achilles PT-OP-R Modalities Start: 11/16/22 13:34 Freq: Status: Active Protocol: Document 11/24/22 15:15 [facility] (Rec: 11/24/22 17:21 [facility] [id number]) Iontophoresis Treatment left heel Treatment Medication dexamethasone Medication Amount (mL) (ml) 1 Ultrasound Therapy Treatment left plantar fascia at the heel attachment Treatment Duration (minutes) 8 Patient Position Prone Coupling Medium Ultrasound Gel Applicator Size (cm2) 5 Frequency Setting (mHz) 1 Mode Setting Continuous Duty Cycle 100% Intensity Setting (w/cm2) 1.5 PT-OP-T Assessment and Plan Start: 11/16/22 12:49 Freq: Status: Active Protocol: Document 11/24/22 15:15 [facility] (Rec: 11/24/22 17:21 [facility] [id number]) Physical Therapy Assessment Assessment Summary Assessment Lukas has been working on stretches at home and wearing the boot and it does seem to help. I started the iontophoresis with him today to help with antiinflammatory Physical Therapy Plan Frequency and Duration Frequency of Treatment 2x/Week Duration of treatment (weeks) 8 Plan of Care Start Date 11/17/22 Plan of Care End Date 01/12/23 Therapeutic Interventions Therapeutic Interventions Gait Training,Home Exercise Program,Joint Mobilizations, Manual Therapy,Patient/ Caregiver Education,Self-Care/ Home Management,Soft Tissue Mobilization,Taping, Therapeutic Exercises Modalities Cold Pack/Ice Massage, Iontophoresis Next Visit Focus/Plan Next Note Type Treatment Note Next Visit Plan continue with manual therapy techniques, and iontophoressi, stretches
--- NOTE | 2022-11-29 17:42 | PT.OTN ---
Current Diagnoses Pain in left foot (11/29/22) Physical Therapy Treatment Note PT-OP-A Visit Information Start: 11/16/22 12:49 Freq: Status: Active Protocol: Document 11/29/22 17:38 [facility] (Rec: 11/29/22 17:42 [facility] [id number]) Out-Patient Physical Therapy Visit Information Visit Information Visit Type Treatment Note Visit Start Time 15:15 Visit Stop Time 16:00 Total Visit Minutes 45 Visit Number 3 PT-OP-B Current Condition Start: 11/16/22 12:49 Freq: Status: Active Protocol: Document 11/16/22 12:49 [facility] (Rec: 11/16/22 13:32 [facility] [id number]) Current Condition History of Current Condition Onset Date 4 months ago Current Complaints 4 months of left side heel pain and pain into the achiles tendon History of Current Condition pt reports he has a bone spur on his left heel, pain is right at the heel and up into the achilies tendon. He started the night boot x 4 days ago and has been working on stretching his calf muscle. His pain is worse with walking and he is walking with a limp due to pain. He has had a consult with ortho and will be fitted for a custom orthotic. PT-OP-C Subjective Start: 11/16/22 12:49 Freq: Status: Active Protocol: Document 11/29/22 17:38 [facility] (Rec: 11/29/22 17:42 [facility] [id number]) OP-PT Subjective Patient Comments Patient Comments robbin reports he feels he is doing better, he has been sleeping in his boot and doing his stretches. He feels the iontophoresis helped last visit along with PT treatment Patient Reported Progress Improving PT-OP-F Manual Assessment Start: 11/16/22 12:49 Freq: Status: Active Protocol: Document 11/16/22 12:49 [facility] (Rec: 11/17/22 16:26 [facility] [id number]) Manual Assessments Soft Tissue Assessment Soft Tissue Mobility Assessment tighteness in the left gastroc soleus complex, tightness in the left plantar fascia Other Manual Assessments Other Manual Assessments tenderness to palpation over the bone spur left heel PT-OP-J Posture/Palpation/Skin Start: 11/16/22 12:49 Freq: Status: Active Protocol: Document 11/16/22 12:49 [facility] (Rec: 11/17/22 16:30 [facility] [id number]) Palpation Assessment Location left achilles tendon Palpation Location tenderness B sides of the achilles but worse on the medial side Palpation Findings Soft Tissue Tightness,Muscle Guarding,Tenderness left heel Palpation Location tenderness over the plantar fascia attachment to the heel Palpation Findings Soft Tissue Tightness,Muscle Guarding,Tenderness PT-OP-K Range of Motion Start: 11/16/22 12:49 Freq: Status: Active Protocol: Document 11/16/22 12:49 [facility] (Rec: 11/17/22 16:32 [facility] [id number]) Ankle and Foot Goniometric Range of Motion Ankle and Foot left Ankle/Foot ROM WFL No Testing Position Supine Dorsiflexion with Knee Flexed 12 Dorsiflexion with Knee Extended 10 Plantarflexion 30 Inversion 15 Eversion 10 Toe Range of Motion Toes ROM Limitations Toe ROM Limitations Soft Tissue Tightness Comments decreased great toe extension PT-OP-Q Treatments Start: 11/16/22 12:49 Freq: Status: Active Protocol: Document 11/29/22 17:38 [facility] (Rec: 11/29/22 17:42 [facility] [id number]) Manual Therapy Treatment Soft Tissue Mobilization MFR left achilles Mobilization Type Instrument Assisted Body Position Prone Comments pt was prone for MFR and tolerated well MFR plantar fascia Body Location left plantar fascia Mobilization Type Instrument Assisted Intensity/Depth Moderate Body Position Prone Comments pt tolerates use of gusha very well and noted that treatment felt good over his heel and achilles PT-OP-R Modalities Start: 11/16/22 13:34 Freq: Status: Active Protocol: Document 11/29/22 17:38 [facility] (Rec: 11/29/22 17:42 [facility] [id number]) Iontophoresis Treatment left heel Treatment Medication dexamethasone Medication Amount (mL) (ml) 1 Ultrasound Therapy Treatment left plantar fascia at the heel attachment Treatment Duration (minutes) 8 Patient Position Prone Coupling Medium Ultrasound Gel Applicator Size (cm2) 5 Frequency Setting (mHz) 1 Mode Setting Continuous Duty Cycle 100% Intensity Setting (w/cm2) 1.5 PT-OP-T Assessment and Plan Start: 11/16/22 12:49 Freq: Status: Active Protocol: Document 11/29/22 17:38 [facility] (Rec: 11/29/22 17:42 [facility] [id number]) Physical Therapy Assessment Assessment Summary Assessment Good tolerance today for treatment, following manual therapy techniques pt notes decreased tenderness over the plantar fascia attachment to the heel Physical Therapy Plan Frequency and Duration Frequency of Treatment 2x/Week Duration of treatment (weeks) 8 Plan of Care Start Date 11/17/22 Plan of Care End Date 01/12/23 Therapeutic Interventions Therapeutic Interventions Gait Training,Home Exercise Program,Joint Mobilizations, Manual Therapy,Patient/ Caregiver Education,Self-Care/ Home Management,Soft Tissue Mobilization,Taping, Therapeutic Exercises Modalities Cold Pack/Ice Massage, Iontophoresis Next Visit Focus/Plan Next Note Type Treatment Note Next Visit Plan begin ice massage over the medial achilies next visit
--- NOTE | 2022-12-06 16:11 | PT.OTN ---
Current Diagnoses Pain in left foot (12/06/22) Physical Therapy Treatment Note PT-OP-A Visit Information Start: 11/16/22 12:49 Freq: Status: Active Protocol: Document 12/06/22 15:05 [facility] (Rec: 12/06/22 16:08 [facility] [id number]) Out-Patient Physical Therapy Visit Information Visit Information Visit Type Treatment Note Visit Start Time 15:05 Visit Stop Time 15:50 Total Visit Minutes 45 Visit Number 4 PT-OP-B Current Condition Start: 11/16/22 12:49 Freq: Status: Active Protocol: Document 11/16/22 12:49 [facility] (Rec: 11/16/22 13:32 [facility] [id number]) Current Condition History of Current Condition Onset Date 4 months ago Current Complaints 4 months of left side heel pain and pain into the achiles tendon History of Current Condition pt reports he has a bone spur on his left heel, pain is right at the heel and up into the achilies tendon. He started the night boot x 4 days ago and has been working on stretching his calf muscle. His pain is worse with walking and he is walking with a limp due to pain. He has had a consult with ortho and will be fitted for a custom orthotic. PT-OP-C Subjective Start: 11/16/22 12:49 Freq: Status: Active Protocol: Document 12/06/22 15:05 [facility] (Rec: 12/06/22 16:08 [facility] [id number]) OP-PT Subjective Patient Comments Patient Comments robbin notes he is doing all of his stretches and wearing his boot at night. He does note the achilles pain will sometimes increase as the day goes on. He also notes his pain varies depending on what shoes he is wearing. PT-OP-F Manual Assessment Start: 11/16/22 12:49 Freq: Status: Active Protocol: Document 11/16/22 12:49 [facility] (Rec: 11/17/22 16:26 [facility] [id number]) Manual Assessments Soft Tissue Assessment Soft Tissue Mobility Assessment tighteness in the left gastroc soleus complex, tightness in the left plantar fascia Other Manual Assessments Other Manual Assessments tenderness to palpation over the bone spur left heel PT-OP-J Posture/Palpation/Skin Start: 11/16/22 12:49 Freq: Status: Active Protocol: Document 11/16/22 12:49 [facility] (Rec: 11/17/22 16:30 [facility] [id number]) Palpation Assessment Location left achilles tendon Palpation Location tenderness B sides of the achilles but worse on the medial side Palpation Findings Soft Tissue Tightness,Muscle Guarding,Tenderness left heel Palpation Location tenderness over the plantar fascia attachment to the heel Palpation Findings Soft Tissue Tightness,Muscle Guarding,Tenderness PT-OP-K Range of Motion Start: 11/16/22 12:49 Freq: Status: Active Protocol: Document 11/16/22 12:49 [facility] (Rec: 11/17/22 16:32 [facility] [id number]) Ankle and Foot Goniometric Range of Motion Ankle and Foot left Ankle/Foot ROM WFL No Testing Position Supine Dorsiflexion with Knee Flexed 12 Dorsiflexion with Knee Extended 10 Plantarflexion 30 Inversion 15 Eversion 10 Toe Range of Motion Toes ROM Limitations Toe ROM Limitations Soft Tissue Tightness Comments decreased great toe extension PT-OP-Q Treatments Start: 11/16/22 12:49 Freq: Status: Active Protocol: Document 12/06/22 15:05 [facility] (Rec: 12/06/22 16:08 [facility] [id number]) Manual Therapy Treatment Soft Tissue Mobilization MFR left achilles Mobilization Type Instrument Assisted Body Position Prone Comments pt was prone for MFR and tolerated well MFR plantar fascia Body Location left plantar fascia Mobilization Type Instrument Assisted Intensity/Depth Moderate Body Position Prone Comments pt tolerates use of gusha very well and noted that treatment felt good over his heel and achilles PT-OP-R Modalities Start: 11/16/22 13:34 Freq: Status: Active Protocol: Document 12/06/22 15:05 [facility] (Rec: 12/06/22 16:11 [facility] [id number]) Hot Pack/Cold Pack Treatment Ice Massage Location left medial achilles Patient Position Prone Treatment Duration (minutes) 5 Iontophoresis Treatment left heel Treatment Medication dexamethasone Medication Amount (mL) (ml) 1 Ultrasound Therapy Treatment left plantar fascia at the heel attachment Treatment Duration (minutes) 8 Patient Position Prone Coupling Medium Ultrasound Gel Applicator Size (cm2) 5 Frequency Setting (mHz) 1 Mode Setting Continuous Duty Cycle 100% Intensity Setting (w/cm2) 1.5 PT-OP-T Assessment and Plan Start: 11/16/22 12:49 Freq: Status: Active Protocol: Document 12/06/22 15:05 [facility] (Rec: 12/06/22 16:08 [facility] [id number]) Physical Therapy Assessment Assessment Summary Assessment advised pt to continue using the ice massage over the medial Achilles tendon. Pt tolerating manual techniques well. Physical Therapy Plan Frequency and Duration Frequency of Treatment 2x/Week Duration of treatment (weeks) 8 Plan of Care Start Date 11/17/22 Plan of Care End Date 01/12/23 Therapeutic Interventions Therapeutic Interventions Gait Training,Home Exercise Program,Joint Mobilizations, Manual Therapy,Patient/ Caregiver Education,Self-Care/ Home Management,Soft Tissue Mobilization,Taping, Therapeutic Exercises Modalities Cold Pack/Ice Massage, Iontophoresis Next Visit Focus/Plan Next Note Type Treatment Note Next Visit Plan Continue with manual therapy work, modalities for anti inflammation and stretches
--- NOTE | 2022-12-15 11:23 | PT.OTN ---
Current Diagnoses Pain in left foot (12/15/22) Physical Therapy Treatment Note PT-OP-A Visit Information Start: 11/16/22 12:49 Freq: Status: Active Protocol: Document 12/15/22 10:30 [facility] (Rec: 12/15/22 11:23 [facility] [id number]) Out-Patient Physical Therapy Visit Information Visit Information Visit Type Treatment Note Visit Start Time 10:30 Visit Stop Time 11:15 Total Visit Minutes 45 Visit Number 5 PT-OP-B Current Condition Start: 11/16/22 12:49 Freq: Status: Active Protocol: Document 11/16/22 12:49 [facility] (Rec: 11/16/22 13:32 [facility] [id number]) Current Condition History of Current Condition Onset Date 4 months ago Current Complaints 4 months of left side heel pain and pain into the achiles tendon History of Current Condition pt reports he has a bone spur on his left heel, pain is right at the heel and up into the achilies tendon. He started the night boot x 4 days ago and has been working on stretching his calf muscle. His pain is worse with walking and he is walking with a limp due to pain. He has had a consult with ortho and will be fitted for a custom orthotic. PT-OP-C Subjective Start: 11/16/22 12:49 Freq: Status: Active Protocol: Document 12/15/22 10:30 [facility] (Rec: 12/15/22 11:23 [facility] [id number]) OP-PT Subjective Patient Comments Patient Comments Lukas reports his heel pain is doing better, its not as sore as the day goes on. He was able to wear his hokas which have made his heel hurt in the past PT-OP-F Manual Assessment Start: 11/16/22 12:49 Freq: Status: Active Protocol: Document 11/16/22 12:49 [facility] (Rec: 11/17/22 16:26 [facility] [id number]) Manual Assessments Soft Tissue Assessment Soft Tissue Mobility Assessment tighteness in the left gastroc soleus complex, tightness in the left plantar fascia Other Manual Assessments Other Manual Assessments tenderness to palpation over the bone spur left heel PT-OP-J Posture/Palpation/Skin Start: 11/16/22 12:49 Freq: Status: Active Protocol: Document 11/16/22 12:49 [facility] (Rec: 11/17/22 16:30 [facility] [id number]) Palpation Assessment Location left achilles tendon Palpation Location tenderness B sides of the achilles but worse on the medial side Palpation Findings Soft Tissue Tightness,Muscle Guarding,Tenderness left heel Palpation Location tenderness over the plantar fascia attachment to the heel Palpation Findings Soft Tissue Tightness,Muscle Guarding,Tenderness PT-OP-K Range of Motion Start: 11/16/22 12:49 Freq: Status: Active Protocol: Document 11/16/22 12:49 [facility] (Rec: 11/17/22 16:32 [facility] [id number]) Ankle and Foot Goniometric Range of Motion Ankle and Foot left Ankle/Foot ROM WFL No Testing Position Supine Dorsiflexion with Knee Flexed 12 Dorsiflexion with Knee Extended 10 Plantarflexion 30 Inversion 15 Eversion 10 Toe Range of Motion Toes ROM Limitations Toe ROM Limitations Soft Tissue Tightness Comments decreased great toe extension PT-OP-Q Treatments Start: 11/16/22 12:49 Freq: Status: Active Protocol: Document 12/15/22 10:30 [facility] (Rec: 12/15/22 11:23 [facility] [id number]) Manual Therapy Treatment Soft Tissue Mobilization MFR left achilles Mobilization Type Instrument Assisted Body Position Prone Comments pt was prone for MFR and tolerated well MFR plantar fascia Body Location left plantar fascia Mobilization Type Instrument Assisted Intensity/Depth Moderate Body Position Prone Comments pt tolerates use of gusha very well and noted that treatment felt good over his heel and achilles PT-OP-R Modalities Start: 11/16/22 13:34 Freq: Status: Active Protocol: Document 12/15/22 10:30 [facility] (Rec: 12/15/22 11:23 [facility] [id number]) Iontophoresis Treatment left heel Treatment Medication dexamethasone Medication Amount (mL) (ml) 1 Ultrasound Therapy Treatment left plantar fascia at the heel attachment Treatment Duration (minutes) 8 Patient Position Prone Coupling Medium Ultrasound Gel Applicator Size (cm2) 5 Frequency Setting (mHz) 1 Mode Setting Continuous Duty Cycle 100% Intensity Setting (w/cm2) 1.5 PT-OP-T Assessment and Plan Start: 11/16/22 12:49 Freq: Status: Active Protocol: Document 12/15/22 10:30 [facility] (Rec: 12/15/22 11:23 [facility] [id number]) Physical Therapy Assessment Assessment Summary Assessment pt continues to progress with decreased pain and decreased tightness over the plantar fascia and calf. He has returned to the stationary bike and I encouraged the eliptical epic trainer as well Physical Therapy Plan Frequency and Duration Frequency of Treatment 2x/Week Duration of treatment (weeks) 8 Plan of Care Start Date 11/17/22 Plan of Care End Date 01/12/23 Therapeutic Interventions Therapeutic Interventions Gait Training,Home Exercise Program,Joint Mobilizations, Manual Therapy,Patient/ Caregiver Education,Self-Care/ Home Management,Soft Tissue Mobilization,Taping, Therapeutic Exercises Modalities Cold Pack/Ice Massage, Iontophoresis Next Visit Focus/Plan Next Note Type Treatment Note Next Visit Plan Continue with manual therapy work, modalities for anti inflammation and stretches
--- NOTE | 2022-12-27 17:10 | PT.OTN ---
Current Diagnoses Pain in left foot (12/27/22) Physical Therapy Treatment Note PT-OP-A Visit Information Start: 11/16/22 12:49 Freq: Status: Active Protocol: Document 12/27/22 11:30 [facility] (Rec: 12/27/22 17:08 [facility] [id number]) Out-Patient Physical Therapy Visit Information Visit Information Visit Type Treatment Note Visit Start Time 11:30 Visit Stop Time 12:15 Total Visit Minutes 45 Visit Number 6 PT-OP-B Current Condition Start: 11/16/22 12:49 Freq: Status: Active Protocol: Document 11/16/22 12:49 [facility] (Rec: 11/16/22 13:32 [facility] [id number]) Current Condition History of Current Condition Onset Date 4 months ago Current Complaints 4 months of left side heel pain and pain into the achiles tendon History of Current Condition pt reports he has a bone spur on his left heel, pain is right at the heel and up into the achilies tendon. He started the night boot x 4 days ago and has been working on stretching his calf muscle. His pain is worse with walking and he is walking with a limp due to pain. He has had a consult with ortho and will be fitted for a custom orthotic. PT-OP-C Subjective Start: 11/16/22 12:49 Freq: Status: Active Protocol: Document 12/27/22 11:30 [facility] (Rec: 12/27/22 11:35 [facility] [id number]) OP-PT Subjective Patient Comments Patient Comments STILL sleeping with the boot but pain is mostly gone and he feels like he has made good improvements, walking more long distance is still difficult for Lukas to do and he would like to progress to this Patient Reported Progress Improving PT-OP-F Manual Assessment Start: 11/16/22 12:49 Freq: Status: Active Protocol: Document 11/16/22 12:49 [facility] (Rec: 11/17/22 16:26 [facility] [id number]) Manual Assessments Soft Tissue Assessment Soft Tissue Mobility Assessment tighteness in the left gastroc soleus complex, tightness in the left plantar fascia Other Manual Assessments Other Manual Assessments tenderness to palpation over the bone spur left heel PT-OP-J Posture/Palpation/Skin Start: 11/16/22 12:49 Freq: Status: Active Protocol: Document 11/16/22 12:49 [facility] (Rec: 11/17/22 16:30 [facility] [id number]) Palpation Assessment Location left achilles tendon Palpation Location tenderness B sides of the achilles but worse on the medial side Palpation Findings Soft Tissue Tightness,Muscle Guarding,Tenderness left heel Palpation Location tenderness over the plantar fascia attachment to the heel Palpation Findings Soft Tissue Tightness,Muscle Guarding,Tenderness PT-OP-K Range of Motion Start: 11/16/22 12:49 Freq: Status: Active Protocol: Document 11/16/22 12:49 [facility] (Rec: 11/17/22 16:32 [facility] [id number]) Ankle and Foot Goniometric Range of Motion Ankle and Foot left Ankle/Foot ROM WFL No Testing Position Supine Dorsiflexion with Knee Flexed 12 Dorsiflexion with Knee Extended 10 Plantarflexion 30 Inversion 15 Eversion 10 Toe Range of Motion Toes ROM Limitations Toe ROM Limitations Soft Tissue Tightness Comments decreased great toe extension PT-OP-Q Treatments Start: 11/16/22 12:49 Freq: Status: Active Protocol: Document 12/27/22 17:04 [facility] (Rec: 12/27/22 17:08 [facility] [id number]) Manual Therapy Treatment Soft Tissue Mobilization MFR left achilles Mobilization Type Instrument Assisted Body Position Prone Comments pt was prone for MFR and tolerated well MFR plantar fascia Body Location left plantar fascia Mobilization Type Instrument Assisted Intensity/Depth Moderate Body Position Prone Comments pt tolerates use of gusha very well and noted that treatment felt good over his heel and achilles PT-OP-R Modalities Start: 11/16/22 13:34 Freq: Status: Active Protocol: Document 12/27/22 17:04 [facility] (Rec: 12/27/22 17:08 [facility] [id number]) Hot Pack/Cold Pack Treatment Ice Massage Location left medial achilles Patient Position Prone Treatment Duration (minutes) 5 Iontophoresis Treatment left heel Treatment Medication dexamethasone Medication Amount (mL) (ml) 1 Ultrasound Therapy Treatment left plantar fascia at the heel attachment Treatment Duration (minutes) 8 Patient Position Prone Coupling Medium Ultrasound Gel Applicator Size (cm2) 5 Frequency Setting (mHz) 1 Mode Setting Continuous Duty Cycle 100% Intensity Setting (w/cm2) 1.5 PT-OP-T Assessment and Plan Start: 11/16/22 12:49 Freq: Status: Active Protocol: Document 12/27/22 17:04 [facility] (Rec: 12/27/22 17:08 [facility] [id number]) Physical Therapy Assessment Assessment Summary Assessment pt continues to progress with decreased pain and decreased tightness over the plantar fascia and calf. He has returned to the stationary bike and I encouraged the eliptical physical fitness trainer as well Walking longer distances is still difficult for Lukas to do but he is experiencing much less pain with daily activities Physical Therapy Plan Frequency and Duration Frequency of Treatment 2x/Week Duration of treatment (weeks) 8 Plan of Care Start Date 11/17/22 Plan of Care End Date 01/12/23 Therapeutic Interventions Therapeutic Interventions Gait Training,Home Exercise Program,Joint Mobilizations, Manual Therapy,Patient/ Caregiver Education,Self-Care/ Home Management,Soft Tissue Mobilization,Taping, Therapeutic Exercises Modalities Cold Pack/Ice Massage, Iontophoresis Next Visit Focus/Plan Next Note Type Treatment Note Next Visit Plan if pts insurance approves additional visits then continue with manual therapy work and progress to walking
--- NOTE | 2023-01-03 17:22 | PT.OTN ---
Current Diagnoses Pain in left foot (01/03/23) Physical Therapy Treatment Note PT-OP-A Visit Information Start: 11/16/22 12:49 Freq: Status: Active Protocol: Document 01/03/23 17:19 [facility] (Rec: 01/03/23 17:22 [facility] [id number]) Out-Patient Physical Therapy Visit Information Visit Information Visit Type Treatment Note Visit Start Time 12:15 Visit Stop Time 13:00 Total Visit Minutes 45 Visit Number 7 PT-OP-B Current Condition Start: 11/16/22 12:49 Freq: Status: Active Protocol: Document 11/16/22 12:49 [facility] (Rec: 11/16/22 13:32 [facility] [id number]) Current Condition History of Current Condition Onset Date 4 months ago Current Complaints 4 months of left side heel pain and pain into the achiles tendon History of Current Condition pt reports he has a bone spur on his left heel, pain is right at the heel and up into the achilies tendon. He started the night boot x 4 days ago and has been working on stretching his calf muscle. His pain is worse with walking and he is walking with a limp due to pain. He has had a consult with ortho and will be fitted for a custom orthotic. PT-OP-C Subjective Start: 11/16/22 12:49 Freq: Status: Active Protocol: Document 01/03/23 17:19 [facility] (Rec: 01/03/23 17:22 [facility] [id number]) OP-PT Subjective Patient Comments Patient Comments Lukas reports overall he is doing much better. He has not DC the night splint or anti inflammatories yet. PT-OP-F Manual Assessment Start: 11/16/22 12:49 Freq: Status: Active Protocol: Document 11/16/22 12:49 [facility] (Rec: 11/17/22 16:26 [facility] [id number]) Manual Assessments Soft Tissue Assessment Soft Tissue Mobility Assessment tighteness in the left gastroc soleus complex, tightness in the left plantar fascia Other Manual Assessments Other Manual Assessments tenderness to palpation over the bone spur left heel PT-OP-J Posture/Palpation/Skin Start: 11/16/22 12:49 Freq: Status: Active Protocol: Document 11/16/22 12:49 [facility] (Rec: 11/17/22 16:30 [facility] [id number]) Palpation Assessment Location left achilles tendon Palpation Location tenderness B sides of the achilles but worse on the medial side Palpation Findings Soft Tissue Tightness,Muscle Guarding,Tenderness left heel Palpation Location tenderness over the plantar fascia attachment to the heel Palpation Findings Soft Tissue Tightness,Muscle Guarding,Tenderness PT-OP-K Range of Motion Start: 11/16/22 12:49 Freq: Status: Active Protocol: Document 11/16/22 12:49 [facility] (Rec: 11/17/22 16:32 [facility] [id number]) Ankle and Foot Goniometric Range of Motion Ankle and Foot left Ankle/Foot ROM WFL No Testing Position Supine Dorsiflexion with Knee Flexed 12 Dorsiflexion with Knee Extended 10 Plantarflexion 30 Inversion 15 Eversion 10 Toe Range of Motion Toes ROM Limitations Toe ROM Limitations Soft Tissue Tightness Comments decreased great toe extension PT-OP-Q Treatments Start: 11/16/22 12:49 Freq: Status: Active Protocol: Document 01/03/23 17:19 [facility] (Rec: 01/03/23 17:22 [facility] [id number]) Manual Therapy Treatment Soft Tissue Mobilization MFR left achilles Mobilization Type Instrument Assisted Body Position Prone Comments pt was prone for MFR and tolerated well MFR plantar fascia Body Location left plantar fascia Mobilization Type Instrument Assisted Intensity/Depth Moderate Body Position Prone Comments pt tolerates use of gusha very well and noted that treatment felt good over his heel and achilles PT-OP-R Modalities Start: 11/16/22 13:34 Freq: Status: Active Protocol: Document 01/03/23 17:19 [facility] (Rec: 01/03/23 17:22 [facility] [id number]) Iontophoresis Treatment left heel Treatment Medication dexamethasone Medication Amount (mL) (ml) 1 Ultrasound Therapy Treatment left plantar fascia at the heel attachment Treatment Duration (minutes) 8 Patient Position Prone Coupling Medium Ultrasound Gel Applicator Size (cm2) 5 Frequency Setting (mHz) 1 Mode Setting Continuous Duty Cycle 100% Intensity Setting (w/cm2) 1.5 PT-OP-T Assessment and Plan Start: 11/16/22 12:49 Freq: Status: Active Protocol: Document 01/03/23 17:19 [facility] (Rec: 01/03/23 17:22 [facility] [id number]) Physical Therapy Assessment Assessment Summary Assessment Pt is responding well to treatment and pain continues to decrease Physical Therapy Plan Frequency and Duration Frequency of Treatment 2x/Week Duration of treatment (weeks) 8 Plan of Care Start Date 11/17/22 Plan of Care End Date 01/12/23 Therapeutic Interventions Therapeutic Interventions Gait Training,Home Exercise Program,Joint Mobilizations, Manual Therapy,Patient/ Caregiver Education,Self-Care/ Home Management,Soft Tissue Mobilization,Taping, Therapeutic Exercises Modalities Cold Pack/Ice Massage, Iontophoresis
--- NOTE | 2023-01-10 17:00 | PT.OTN ---
Current Diagnoses Pain in left foot (01/10/23) Physical Therapy Treatment Note PT-OP-A Visit Information Start: 11/16/22 12:49 Freq: Status: Active Protocol: Document 01/10/23 13:30 [facility] (Rec: 01/10/23 17:44 [facility] [id number]) Out-Patient Physical Therapy Visit Information Visit Information Visit Type Progress Note Visit Start Time 13:30 Visit Stop Time 14:15 Total Visit Minutes 45 Visit Number 8 PT-OP-B Current Condition Start: 11/16/22 12:49 Freq: Status: Active Protocol: Document 11/16/22 12:49 [facility] (Rec: 11/16/22 13:32 [facility] [id number]) Current Condition History of Current Condition Onset Date 4 months ago Current Complaints 4 months of left side heel pain and pain into the achiles tendon History of Current Condition pt reports he has a bone spur on his left heel, pain is right at the heel and up into the achilies tendon. He started the night boot x 4 days ago and has been working on stretching his calf muscle. His pain is worse with walking and he is walking with a limp due to pain. He has had a consult with ortho and will be fitted for a custom orthotic. PT-OP-C Subjective Start: 11/16/22 12:49 Freq: Status: Active Protocol: Document 01/10/23 13:30 [facility] (Rec: 01/10/23 17:44 [facility] [id number]) OP-PT Subjective Patient Comments Patient Comments Lukas notes he is doing better overall, he can feel some tension still in the achilles but doing better with the heel . He is going on a golf trip this weekend and will be standing a bit so it will be a good test of how he is doing PT-OP-F Manual Assessment Start: 11/16/22 12:49 Freq: Status: Active Protocol: Document 11/16/22 12:49 [facility] (Rec: 11/17/22 16:26 [facility] [id number]) Manual Assessments Soft Tissue Assessment Soft Tissue Mobility Assessment tighteness in the left gastroc soleus complex, tightness in the left plantar fascia Other Manual Assessments Other Manual Assessments tenderness to palpation over the bone spur left heel PT-OP-J Posture/Palpation/Skin Start: 11/16/22 12:49 Freq: Status: Active Protocol: Document 11/16/22 12:49 [facility] (Rec: 11/17/22 16:30 [facility] [id number]) Palpation Assessment Location left achilles tendon Palpation Location tenderness B sides of the achilles but worse on the medial side Palpation Findings Soft Tissue Tightness,Muscle Guarding,Tenderness left heel Palpation Location tenderness over the plantar fascia attachment to the heel Palpation Findings Soft Tissue Tightness,Muscle Guarding,Tenderness PT-OP-K Range of Motion Start: 11/16/22 12:49 Freq: Status: Active Protocol: Document 11/16/22 12:49 [facility] (Rec: 11/17/22 16:32 [facility] [id number]) Ankle and Foot Goniometric Range of Motion Ankle and Foot left Ankle/Foot ROM WFL No Testing Position Supine Dorsiflexion with Knee Flexed 12 Dorsiflexion with Knee Extended 10 Plantarflexion 30 Inversion 15 Eversion 10 Toe Range of Motion Toes ROM Limitations Toe ROM Limitations Soft Tissue Tightness Comments decreased great toe extension PT-OP-Q Treatments Start: 11/16/22 12:49 Freq: Status: Active Protocol: Document 01/10/23 13:30 [facility] (Rec: 01/11/23 09:18 [facility] [id number]) Manual Therapy Treatment Soft Tissue Mobilization MFR left achilles Mobilization Type Instrument Assisted Body Position Prone Comments pt was prone for MFR and tolerated well MFR plantar fascia Body Location left plantar fascia Mobilization Type Instrument Assisted Intensity/Depth Moderate Body Position Prone Comments pt tolerates use of gusha very well and noted that treatment felt good over his heel and achilles PT-OP-R Modalities Start: 11/16/22 13:34 Freq: Status: Active Protocol: Document 01/10/23 13:30 [facility] (Rec: 01/11/23 09:18 [facility] [id number]) Iontophoresis Treatment left heel Treatment Medication dexamethasone Medication Amount (mL) (ml) 1 Ultrasound Therapy Treatment left plantar fascia at the heel attachment Treatment Duration (minutes) 8 Patient Position Prone Coupling Medium Ultrasound Gel Applicator Size (cm2) 5 Frequency Setting (mHz) 1 Mode Setting Continuous Duty Cycle 100% Intensity Setting (w/cm2) 1.5 PT-OP-T Assessment and Plan Start: 11/16/22 12:49 Freq: Status: Active Protocol: Document 01/10/23 13:30 [facility] (Rec: 01/10/23 17:44 [facility] [id number]) Physical Therapy Assessment Goals Three Impairment antalgic gait pattern placing stress on the plantar fascia tissues Nursing Home Goal (LTG) decrease the stress on the plantar fascia tissue by restoring gait pattern and the normal mechanics of the foot and leg excellent progress with improved calf length LTG Duration 8 weeks Two Impairment soft tissue tightness of the plantar fascia and calf musculature on the left with point tenderness to palpation Nursing Home Goal (LTG) Lukas reports a overall decrease in tenderness to palpation and there is decreased tightness of the calf musculare with full ROM of ankle DF excellent progress, still some tenderness over the achilles, at the heel pain is significantly reduced LTG Duration 8 weeks + One Impairment Left sided plantar fasica pain rated 4/10 worse with standing and walking. 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 He notes is Heel pain is little to none now, pt still feeling some tenderness along the achilles. He has stopped taking his anti inflammatories. He is headed on a three day golf trip and will bring resting night splint with him. It will be a good test as to how he is doing with weightbearing Physical Therapy Plan Frequency and Duration Frequency of Treatment 1x/Week Duration of treatment (weeks) 5 Plan of Care Start Date 01/10/23 Plan of Care End Date 02/14/23 Next Visit Focus/Plan Next Note Type Treatment Note
--- NOTE | 2023-01-10 17:00 | PT.OPPOC ---
Physical, Occupational & Speech Therapy At [facility] Current Diagnoses Pain in left foot (01/10/23) Visit Care Team Role Provider Type Tripp Joseph MD Attending Provider Physician Family Provider Primary Care Provider Referring Provider Specialty: Family Practice Address: [address] [place] [address], [id number] Email: [email or web address] Plan Of Care PT-OP-T Assessment and Plan Start: 11/16/22 12:49 Freq: Status: Active Protocol: Document 01/10/23 13:30 [facility] (Rec: 01/10/23 17:44 [facility] [id number]) Physical Therapy Assessment Goals Three Impairment antalgic gait pattern placing stress on the plantar fascia tissues Detention Goal (LTG) decrease the stress on the plantar fascia tissue by restoring gait pattern and the normal mechanics of the foot and leg excellent progress with improved calf length LTG Duration 8 weeks Two Impairment soft tissue tightness of the plantar fascia and calf musculature on the left with point tenderness to palpation Detention Goal (LTG) Lukas reports a overall decrease in tenderness to palpation and there is decreased tightness of the calf musculare with full ROM of ankle DF excellent progress, still some tenderness over the achilles, at the heel pain is significantly reduced LTG Duration 8 weeks + One Impairment Left sided plantar fasica pain rated 4/10 worse with standing and walking. Short Term Goal (STG) Lukas is educated in antiinflammatory modalities to asssit with pain reduction GOAL MET STG Duration 4 weeks Detention Goal (LTG) Lukas is able to return to walking greater than 1 mile without a increase in plantar fascia pain Good progress, Lukas is no longer feeling the pain with weightbearing but he has not walked a mile distance LTG Duration 8 weeks+ Assessment Summary Assessment Lukas has made great progress with PT. He notes is Heel pain is little to none now, pt still feeling some tenderness along the achilles. He has stopped taking his anti inflammatories. He is headed on a three day golf trip and will bring resting night splint with him. It will be a good test as to how he is doing with weightbearing Physical Therapy Plan Frequency and Duration Frequency of Treatment 1x/Week Duration of treatment (weeks) 5 Plan of Care Start Date 01/10/23 Plan of Care End Date 02/14/23 Next Visit Focus/Plan Next Note Type Treatment Note Plan of Care Dates Plan of Care Start Date 01/10/23 Plan of Care End Date 02/14/23 Electronically Signed by: Judith Lebron PT 01/11/23 0924 If you are in agreement with this Plan of Care, please return a signed and dated copy. I have reviewed this Plan of Care and certify that the skilled therapy services above are required to meet the patient?s needs. Physician Signature Date Printed Name and Credentials Clinical Instructor Signature Printed Name and Credentials
--- NOTE | 2023-01-17 16:43 | PT.OTN ---
Current Diagnoses Pain in left foot (01/17/23) Physical Therapy Treatment Note PT-OP-A Visit Information Start: 11/16/22 12:49 Freq: Status: Active Protocol: Document 01/17/23 16:30 [facility] (Rec: 01/17/23 16:43 [facility] [id number]) Out-Patient Physical Therapy Visit Information Visit Information Visit Type Treatment Note Visit Start Time 12:15 Visit Stop Time 13:00 Total Visit Minutes 45 Visit Number 9 PT-OP-B Current Condition Start: 11/16/22 12:49 Freq: Status: Active Protocol: Document 11/16/22 12:49 [facility] (Rec: 11/16/22 13:32 [facility] [id number]) Current Condition History of Current Condition Onset Date 4 months ago Current Complaints 4 months of left side heel pain and pain into the achiles tendon History of Current Condition pt reports he has a bone spur on his left heel, pain is right at the heel and up into the achilies tendon. He started the night boot x 4 days ago and has been working on stretching his calf muscle. His pain is worse with walking and he is walking with a limp due to pain. He has had a consult with ortho and will be fitted for a custom orthotic. PT-OP-C Subjective Start: 11/16/22 12:49 Freq: Status: Active Protocol: Document 01/17/23 12:23 [facility] (Rec: 01/17/23 12:24 [facility] [id number]) OP-PT Subjective Patient Comments Patient Comments pt is trying to wean himself off the anti inflammatories, he still has tenderness on the achilles. Patient Reported Progress Improving PT-OP-F Manual Assessment Start: 11/16/22 12:49 Freq: Status: Active Protocol: Document 11/16/22 12:49 [facility] (Rec: 11/17/22 16:26 [facility] [id number]) Manual Assessments Soft Tissue Assessment Soft Tissue Mobility Assessment tighteness in the left gastroc soleus complex, tightness in the left plantar fascia Other Manual Assessments Other Manual Assessments tenderness to palpation over the bone spur left heel PT-OP-J Posture/Palpation/Skin Start: 11/16/22 12:49 Freq: Status: Active Protocol: Document 11/16/22 12:49 [facility] (Rec: 11/17/22 16:30 [facility] [id number]) Palpation Assessment Location left achilles tendon Palpation Location tenderness B sides of the achilles but worse on the medial side Palpation Findings Soft Tissue Tightness,Muscle Guarding,Tenderness left heel Palpation Location tenderness over the plantar fascia attachment to the heel Palpation Findings Soft Tissue Tightness,Muscle Guarding,Tenderness PT-OP-K Range of Motion Start: 11/16/22 12:49 Freq: Status: Active Protocol: Document 11/16/22 12:49 [facility] (Rec: 11/17/22 16:32 [facility] [id number]) Ankle and Foot Goniometric Range of Motion Ankle and Foot left Ankle/Foot ROM WFL No Testing Position Supine Dorsiflexion with Knee Flexed 12 Dorsiflexion with Knee Extended 10 Plantarflexion 30 Inversion 15 Eversion 10 Toe Range of Motion Toes ROM Limitations Toe ROM Limitations Soft Tissue Tightness Comments decreased great toe extension PT-OP-Q Treatments Start: 11/16/22 12:49 Freq: Status: Active Protocol: Document 01/17/23 16:30 [facility] (Rec: 01/17/23 16:43 [facility] [id number]) Manual Therapy Treatment Soft Tissue Mobilization MFR left achilles Mobilization Type Instrument Assisted Body Position Prone Comments pt was prone for MFR and tolerated well MFR plantar fascia Body Location left plantar fascia Mobilization Type Instrument Assisted Intensity/Depth Moderate Body Position Prone Comments pt tolerates use of gusha very well and noted that treatment felt good over his heel and achilles PT-OP-R Modalities Start: 11/16/22 13:34 Freq: Status: Active Protocol: Document 01/17/23 16:30 [facility] (Rec: 01/17/23 16:43 [facility] [id number]) Iontophoresis Treatment left heel Treatment Medication dexamethasone Medication Amount (mL) (ml) 1 Ultrasound Therapy Treatment left plantar fascia at the heel attachment Treatment Duration (minutes) 8 Patient Position Prone Coupling Medium Ultrasound Gel Applicator Size (cm2) 5 Frequency Setting (mHz) 1 Mode Setting Continuous Duty Cycle 100% Intensity Setting (w/cm2) 1.5 PT-OP-T Assessment and Plan Start: 11/16/22 12:49 Freq: Status: Active Protocol: Document 01/17/23 16:30 [facility] (Rec: 01/17/23 16:43 [facility] [id number]) Physical Therapy Assessment Goals Three Impairment antalgic gait pattern placing stress on the plantar fascia tissues [facility] Goal (LTG) decrease the stress on the plantar fascia tissue by restoring gait pattern and the normal mechanics of the foot and leg excellent progress with improved calf length LTG Duration 8 weeks Two Impairment soft tissue tightness of the plantar fascia and calf musculature on the left with point tenderness to palpation 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 He is a little tender in the achilles but overall did really well LTG Duration 8 weeks+ Assessment Summary Assessment Lukas has made great overall progress with his symptoms of plantar fascitis and achilles pain. He has residual symptoms at this point but is no longer needing the anti inflammation on a daily basis and feels independent with a home exercise program. At this point he will be discharged from PT Physical Therapy Plan Discharge Physical Therapy Discharge Reasons Goals Met
== END 2023-03-17 14:25 ==
LOC: PHYS 12:15
PROVIDERS: Family Provider Family Medicine; PCP Family Medicine; Referring Provider Family Medicine; Visit Provider Family Medicine
DX: M79.672 Pain in left foot (principal)
CPT/HCPCS: 97035; 97140; 97161

== ENCOUNTER 2023-05-12 11:01 | Day surgery (SDC) | payer OTHER, SELFPAY ==
[2023-05-12 11:17] VITALS: BMI 27.2
[2023-05-12 11:26] VITALS: BP 137/86; PULSE 63; RESP 17; TEMP 36.2; O2SAT 96
[2023-05-12] MEDS: LACTATED RINGERS 1,000 ML 150 ML IV (11:52)
--- NOTE | 2023-05-12 12:00 | PM.PREOP ---
Pre-operative Note Interval Note History & Physical reviewed/Exam performed by Physician: Yes Changes to H&P: No
--- NOTE | 2023-05-12 12:29 | PM.OP.EGD ---
Operative Date/Time/Diagnoses Date of procedure: 05/12/23 Time of procedure: 12:29 Pre-op diagnosis: Esophageal dysphagia Post-op diagnosis: other (Esophageal stricture) Procedure & Clinicians Study performed: Esophagoduodenoscopy. Esophageal dilation Same procedure as scheduled: Yes Indications: 57-year-old man with esophageal dysphagia here for diagnostic EGD. Surgeon: Rik Fraser Procedure Notes Procedure in detail: The history and physical was performed/updated and the patient is ASA class is 2. The procedure was discussed in detail with the patient. Potential risks complications including infection, bleeding, missed diagnosis, perforation, need for surgery, and were explained. Their questions were answered and informed consent was obtained. Patient placed in left lateral decubitus position. Time out was performed. Procedural sedation was administered by Anesthesia. A bite block was placed. the scope was inserted into the mouth and advanced through the esophagus. At the distal esophagus at approximately 35 cm from the incisors there was a esophageal stricture. The scope could pass through the stricture into the stomach but it was tight. Stomach was examined normal in its appearance the pylorus was intubated and the duodenum was normal. Scope was then withdrawn back into the esophagus. We gradually dilated the esophageal stricture to 20 mm with balloon dilation. Small amount of bleeding stopped spontaneously. He tolerated this well was transferred to recovery in stable condition Specimen(s): none sent Impression: Distal esophageal stricture Post-procedure Plan for aftercare: Protonix 20 mg daily for the next 2 months Disposition: same day surgery
[2023-05-12 12:33] VITALS: BP 142/80; PULSE 76; RESP 16; TEMP 36.6; O2SAT 94
[2023-05-12 12:38] VITALS: BP 144/108; PULSE 68; RESP 18; O2SAT 94
[2023-05-12 12:43] VITALS: BP 145/105; PULSE 70; RESP 18; TEMP 36.6; O2SAT 96
[2023-05-12 12:53] VITALS: BP 145/110; PULSE 64; RESP 12; O2SAT 92
[2023-05-12 13:10] VITALS: BP 150/94; PULSE 67; RESP 15; TEMP 36.6; O2SAT 96
== END 2023-05-12 13:10 | disposition home or self-care (01) ==
PROVIDERS: Family Provider Family Medicine; PCP Family Medicine; Referring Provider Surgery; Visit Provider Surgery
PROC: 0DJ08ZZ Inspection of Upper Intestinal Tract, Via Natural or Artificial Opening Endoscopic (ICD-10-PCS; CPT 43235; principal; 2023-05-12 12:00)
DX: R13.10 Dysphagia, unspecified (principal)
CPT/HCPCS: 43249; 43239; J2704

== ENCOUNTER → 2024-10-23 08:20 | Outpatient (CLI) | payer OTHER, SELFPAY ==
--- NOTE | 2024-10-23 08:21 | DI.RAD.S_ITS ---
PROCEDURE: XR CERVICAL SPINE 4V OR 5V INDICATIONS: NECK PAIN TECHNIQUE: 5 views of the cervical spine acquired. COMPARISON: [facility], CR, XR CERVICAL SPINE 4V OR 5V, 06/09/2020, 14:16. FINDINGS: Bones: Postfusion changes are noted at C6-7 level with intervertebral spacer in place. No evidence of hardware loosening or failure. No fractures or dislocations to the T1 level. Degenerative endplate changes are noted at C4-5 and C5-6 levels. Oblique images demonstrate no significant bony foraminal stenoses. Soft tissues: No prevertebral soft tissue swelling. IMPRESSION: Stable post fusion changes at C6-7 level. No gross hardware loosening or failure. No acute fracture or dislocation. Degenerative disc disease in mid to lower cervical spine. No significant bony foraminal stenosis. Dictated by: Efren Gonzalez M.D. on 10/23/2024 at 8:42 Approved by: Efren Gonzalez M.D. on 10/23/2024 at 8:43
== END ==
PROVIDERS: Family Provider Family Medicine; PCP Family Medicine; Referring Provider Physical Medicine & Rehabilitation; Visit Provider Physical Medicine & Rehabilitation
DX: M50.30 Other cervical disc degeneration, unspecified cervical region (principal); Z98.1 Arthrodesis status
CPT/HCPCS: 72050